=== PATIENT | male | born 1945 | race Caucasian/White ===

== ENCOUNTER → 2021-02-01 | Outpatient (CLI) | payer MEDICARE, SELFPAY ==
[2021-02-01 12:49] LABS: Prothrombin Time (Protime)PT. 29.9 SECONDS (11.7-14.9)
== END | disposition home or self-care (01) ==
PROVIDERS: PCP Family Medicine; Referring Provider Family Medicine; Visit Provider Family Medicine
DX: I48.91 Unspecified atrial fibrillation (principal)
CPT/HCPCS: 85610

== ENCOUNTER → 2021-03-12 12:34 | Outpatient (CLI) | payer MEDICARE, SELFPAY ==
[2021-03-12 12:57] LABS: International Normalized Ratio 2.6; Prothrombin Time (Protime)PT. 26.7 SECONDS (11.7-14.9)
== END ==
PROVIDERS: PCP Family Medicine; Visit Provider Family Medicine
DX: I48.91 Unspecified atrial fibrillation (principal)
CPT/HCPCS: 85610

== ENCOUNTER 2021-05-16 10:33 | Emergency (ER) | payer MEDICARE, SELFPAY ==
[2021-05-16 10:35] VITALS: BP 143/77; PULSE 62; RESP 16; TEMP 38.3; O2SAT 98; BMI 27.0
[2021-05-16 10:47] VITALS: BP 143/77; PULSE 62; RESP 16; TEMP 38.3; O2SAT 98
--- NOTE | 2021-05-16 10:49 | CT_ITS ---
STUDY: CT ABDOMEN AND PELVIS WITHOUT CONTRAST REASON FOR EXAM: Male, 75 years old. Bilateral flank pain. History 4-5 days of incontinence with nausea and vomiting. RADIATION DOSAGE (If Supplied By Facility): CTDIvol = ( 8.26 ) mGy, DLP = ( 437.75 ) mGycm TECHNIQUE: Transaxial images were obtained from the dome of the diaphragm to the symphysis pubis without oral contrast, and without intravenous contrast. Sagittal and coronal images were reconstructed. Individualized dose optimization techniques were used for this CT. COMPARISON: None. FINDINGS: The visualized lung bases are unremarkable. The visualized portions of the heart are within normal limits. Normal liver. Normal gallbladder and extrahepatic biliary system. Normal spleen. Normal pancreas. Normal bilateral adrenal glands. Moderate degree of bilateral hydronephrosis. Bilateral perinephric stranding more prominent on the right side. Normal visualized stomach. Normal small intestine. Normal colon. The appendix is visualized and appears normal. There is diffuse atherosclerotic calcification of the abdominal aorta, without a demonstrated aneurysm. Normal inferior vena cava. There is borderline retroperitoneal lymphadenopathy with enlarged nodes no greater than 10mm in the short axis diameter. The urinary bladder is markedly distended. The bladder wall is minimally thickened. There is enlargement of the prostate gland. The prostate measures 5.6 cm x 5.1 cm. This causes indentation at the bladder base. Central prostatic calcification. Normal abdominal wall. Mild degree of degenerative spurring at the L1-L2 and L2-L3 levels. Degenerative changes of the sacroiliac joints bilaterally. CT/Abdomen/Pelvis without Cont IMPRESSION: Moderate degree of bilateral hydronephrosis and hydroureter with perinephric stranding more prominent on the right side. This is most likely secondary to the markedly distended urinary bladder with a mild degree of the bladder wall thickening. Electronically Signed: Mello Moise MD at 11:39 EST ,
[2021-05-16] MEDS: Ondansetron 4 MG/2 ML Vial IV (11:00)
[2021-05-16] MEDS: Morphine 4 MG/ML Syringe IV ×2 (11:00→12:36)
[2021-05-16 11:08] LABS: Absolute Lymphocyte Count 0.32 X10^3/uL (0.83-4.51); Basophil# 0.02 X10^3/uL; Basophil% 0.4 % (0-1); Eosinophil# 0.01 X10^3/uL; Eosinophils% 0.2 % (0-5); Hematocrit 34.5 % (40-54); Hemoglobin 11.3 g/dL (13.0-16.5); Lymphocyte # 0.32 X10^3/ul (0.83-4.51); Mean Corp Hgb Conc 32.8 g/dL (32-36); Mean Corpuscular Hgb 29.6 pg (27.0-32.0); Mean Corpuscular Volume 90.3 fL (80-94); Mean Platelet Vol. 10.9 fl (6.2-12.0); Monocyte# 0.04 X10^3/uL; Monocyte% 0.7 % (0-10); NRBC Flagged by Analyzer 0 % (0-5); Neutrophil # 4.95 X10^3/uL (2.7-7.7); Neutrophil % 92.5 % (47-70); POSITIVE DIFFERENTIAL YES; Platelet Count 196 K/mm3 (150-450); RBC Distribution Width CV 13.5 % (11.6-14.6); RBC Distribution Width SD 44.6 fl (35.1-43.9); Red Blood Count 3.82 M/mm3 (4.6-6.2); White Blood Count 5.4 K/mm3 (4.4-11.0)
[2021-05-16 11:14] LABS: Differential Indicated SCAN CRITERIA MET
--- NOTE | 2021-05-16 11:15 | EX.ED.GUMALE ---
HPI <HANY Granda - Last Filed: 05/16/21 12:05> History of Present Illness Chief Complaint: Complaint Narrative Narrative: 75-year-old male with past medical history of A. fib, BPH presents with back pain and dysuria. Over the last 4 to 5 days he has had bilateral mid back pain and cloudy urine. He had urinary incontinence and has to wear depends. Today he developed a fever, chills, vomiting, and suprapubic pain. He has no history of similar symptoms. PFSH <HANY Granda - Last Filed: 05/16/21 12:05> [facility] Medical History (Updated 05/16/21 @ 12:02 by HANY Granda) HTN (hypertension) Home Medications cephalexin 500 mg PO Q6 #28 capsule 05/16/21 [Rx Last Taken Unknown] dutasteride 0.5 mg PO DAILY 05/16/21 [History Last Taken Unknown] metoprolol succinate 25 mg PO DAILY 05/16/21 [History Last Taken Unknown] ondansetron 4 mg PO Q8H PRN PRN #12 tab 05/16/21 [Rx Last Taken Unknown] tamsulosin 0.4 mg PO DAILY 05/16/21 [History Last Taken Unknown] warfarin 5 mg PO DAILY 05/16/21 [History Last Taken Unknown] Allergy/AdvReac Type Severity Reaction Status Date / Time No Known Allergies Allergy Verified 05/16/21 10:38 Social History Smoking Status: Former smoker ROS <HANY Granda - Last Filed: 05/16/21 12:05> ROS ED ROS Narrative Constitutional: Positive for fever, chills, malaise. Eyes: Negative for visual change. ENT: Negative for sore throat, ear pain, rhinorrhea. CVS: Negative for palpitations, chest pain, syncope. Respiratory: Negative for shortness of breath, cough, orthopnea. GI: Positive for abdominal pain, nausea, vomiting. Negative for diarrhea, constipation, melena, hematochezia. : Positive for dysuria, hematuria or frequency. Neuro: Negative for headache, motor/sensory dysfunction. Skin: Negative for rash, abscess, or wound. Endo: Negative for polyuria, polydipsia. Heme: Negative for easy bruising, bleeding, lymphadenopathy. Allergy: Negative for hives, oral swelling EXAM <HANY Granda - Last Filed: 05/16/21 12:05> Physical Exam Narrative Exam Narrative: CONST: Patient sitting in no acute distress EYES: Normal inspection ENT: Normal inspection, moist mucous membranes NECK: Normal inspection RESP: No respiratory distress, CTAB CVS: Tachycardic with regular rhythm, no murmur, no gallop ABD: Soft with suprapubic tenderness, no guarding or rebound, nondistended, no hepatosplenomegaly Back: Normal inspection, no CVA tenderness SKIN: Color normal, no rash, warm, dry, intact EXTREMITIES: Normal appearance, no pedal edema NEURO: Oriented x4 PSYCH: Normal affect Const Vital Signs: 05/16/21 10:35 05/16/21 10:47 05/16/21 12:05 Temperature 100.9 F H 100.9 F H 100 F H Temperature Source Oral Oral Oral Pulse Rate 62 62 72 Respiratory Rate 16 16 16 Blood Pressure 143/77 H 143/77 H 137/84 H Blood Pressure Mean 99 99 101 Pulse Ox 98 98 96 Oxygen Delivery Method Room Air Room Air Room Air 05/16/21 12:54 Temperature Temperature Source Pulse Rate 75 Respiratory Rate 18 Blood Pressure 128/68 H Blood Pressure Mean Pulse Ox 96 Oxygen Delivery Method <Dr. Jorge Montero DO - Last Filed: 05/16/21 18:55> Physical Exam Const Vital Signs: 05/16/21 10:35 05/16/21 10:47 05/16/21 12:05 Temperature 100.9 F H 100.9 F H 100 F H Temperature Source Oral Oral Oral Pulse Rate 62 62 72 Respiratory Rate 16 16 16 Blood Pressure 143/77 H 143/77 H 137/84 H Blood Pressure Mean 99 99 101 Pulse Ox 98 98 96 Oxygen Delivery Method Room Air Room Air Room Air 05/16/21 12:54 Temperature Temperature Source Pulse Rate 75 Respiratory Rate 18 Blood Pressure 128/68 H Blood Pressure Mean Pulse Ox 96 Oxygen Delivery Method [facility] <HANY Granda - Last Filed: 05/16/21 12:05> [facility] Narrative Medical decision making narrative: Patient presents with back pain and dysuria. He appears well and nontoxic. He is febrile with otherwise normal vital signs. He has suprapubic tenderness with a soft abdomen with no peritoneal signs. No CVA tenderness present. Labs show normal white count and elevated creatinine of 2.1. He has no previous labs for comparison. INR supratherapeutic at 4.1. Urine shows UTI and CT shows significantly distended bladder with bilateral hydronephrosis and perinephric stranding around the right kidney. Urinary catheter was placed with significant output and symptomatic improvement. Patient will be treated for pyelonephritis with Rocephin and prescribed Zofran and Keflex QID. He was also told to hold his Coumadin for the next 2 days. He was discharged with the urinary catheter in place and will follow up with his primary care doctor early next week. He was counseled to return for worsening symptoms and was discharged in stable condition. Lab Data Attestation: I reviewed the patient's lab results. Labs: Laboratory Results - last 24 hr 05/16/21 05/16/21 05/16/21 10:57 10:57 10:57 WBC 5.4 RBC 3.82 L Hgb 11.3 L Hct 34.5 L MCV 90.3 MCH 29.6 MCHC 32.8 RDW Std Deviation 44.6 H RDW Coeff of Vishal 13.5 Plt Count 196 MPV 10.9 Immature Gran % (Auto) 0.200 Neut % (Auto) 92.5 H Lymph % (Auto) 6.0 L [place] % (Auto) 0.7 Eos % (Auto) 0.2 Baso % (Auto) 0.4 Absolute Neuts (auto) 5.0 Absolute Lymphs (auto) 0.32 L Nucleated RBC % 0 Differential Comment COMMENT PT 39.8 H INR 4.2 H* Sodium 137 Potassium 4.3 Chloride 110 H Carbon Dioxide 20.0 L Anion Gap 7 BUN 31 H Creatinine 2.19 H Estim Creat Clear Calc 26.70 Est GFR (MDRD) Af Amer 38 L Est GFR (MDRD) Non-Af 31 L BUN/Creatinine Ratio 14.2 Glucose 107 H Lactic Acid Calcium 8.4 L Urine Color Urine Clarity Urine pH Ur Specific [place] Urine Protein Urine Glucose (UA) Urine Ketones Urine Occult Blood Urine Nitrite Urine Bilirubin Urine Urobilinogen Ur Leukocyte Esterase Urine RBC Urine WBC Ur Squamous Epith Cells Urine Bacteria Urine Mucus 05/16/21 05/16/21 10:57 11:58 WBC RBC Hgb Hct MCV MCH MCHC RDW Std Deviation RDW Coeff of Vishal Plt Count MPV Immature Gran % (Auto) Neut % (Auto) Lymph % (Auto) [place] % (Auto) Eos % (Auto) Baso % (Auto) Absolute Neuts (auto) Absolute Lymphs (auto) Nucleated RBC % Differential Comment PT INR Sodium Potassium Chloride Carbon Dioxide Anion Gap BUN Creatinine Estim Creat Clear Calc Est GFR (MDRD) Af Amer Est GFR (MDRD) Non-Af BUN/Creatinine Ratio Glucose Lactic Acid 1.2 Calcium Urine Color Yellow Urine Clarity Sl. Cloudy Urine pH 5.0 Ur Specific [place] 1.010 Urine Protein 30 H Urine Glucose (UA) Normal Urine Ketones Negative Urine Occult Blood 250 H Urine Nitrite Positive H Urine Bilirubin Negative Urine Urobilinogen Normal Ur Leukocyte Esterase 500 H Urine RBC 25-50 SEEN Urine WBC 25-50 SEEN Ur Squamous Epith Cells 0-5 SEEN Urine Bacteria 2+ Urine Mucus 0 SEEN Radiography Diagnostic Testing: Clinical Impression(s) from Imaging Studies Abdomen/Pelvis CT 05/16/21 10:49 IMPRESSION: Moderate degree of bilateral hydronephrosis and hydroureter with perinephric stranding more prominent on the right side. This is most likely secondary to the markedly distended urinary bladder with a mild degree of the bladder wall thickening. Electronically Signed: Mello Moise MD at 11:39 EST , <Dr. Jorge Montero, DO - Last Filed: 05/16/21 18:55> [facility] Narrative Medical decision making narrative: Patient was seen with me. I agree with the history and physical exam. Patient presents with urinary retention and suprapubic pain that has been getting worse over the past several days. Patient admits to some mild low back pain. Patient admits to fevers at home. Patient denies any nausea or vomiting. Patient denies any chest pain or shortness of breath. Vital signs are stable with the exception of an elevated temperature of 100.9. Patient is in no acute distress. Oral mucosa is pink and moist. Neck is supple. Trachea is midline. There is no JVD. Heart was regular rate and rhythm. Lungs are clear and equal bilaterally abdomen is soft. Bowel sounds are normal. There is distention of the bladder. There is tenderness to palpation of the suprapubic area. There is no rebound or guarding noted. Cranial nerves II through XII are intact. Strength is 5/5 bilaterally upper and lower extremities. There are no sensory deficits noted. CBC shows a mild anemia with a hemoglobin of 11.3 hematocrit 34.5. BUN and creatinine were slightly elevated at 31 and 2.19. PT with INR was obtained. INR was elevated at 4.2. Urinalysis shows leukocyte esterase of 500 with positive nitrites. There were 25-50 white blood cells and 25-50 red blood cells. There is 2+ bacteria. Urine culture was ordered. CT scan of the abdomen pelvis was obtained. There is a distended urinary bladder. There is prostatic hypertrophy. There is bilateral perinephric stranding, worse on the right. There is bilateral hydronephrosis and hydroureter. This was interpreted by the radiologist and reviewed by myself. Walker catheter was placed. Patient was given a dose of Rocephin here. Patient is able to tolerate p.o. Patient was given a prescription for Keflex. Patient was instructed to continue Tylenol as needed for any fevers. Patient was instructed to hold his Coumadin for 2 days. Patient was instructed to follow-up with his primary care physician in 2 to 3 days for reevaluation and removal of the catheter. Patient understood and was agreeable with the plan. All questions were answered. Lab Data Attestation: I reviewed the patient's lab results. Labs: Laboratory Results - last 24 hr 05/16/21 05/16/21 05/16/21 10:57 10:57 10:57 WBC 5.4 RBC 3.82 L Hgb 11.3 L Hct 34.5 L MCV 90.3 MCH 29.6 MCHC 32.8 RDW Std Deviation 44.6 H RDW Coeff of Vishal 13.5 Plt Count 196 MPV 10.9 Immature Gran % (Auto) 0.200 Neut % (Auto) 92.5 H Lymph % (Auto) 6.0 L [place] % (Auto) 0.7 Eos % (Auto) 0.2 Baso % (Auto) 0.4 Absolute Neuts (auto) 5.0 Absolute Lymphs (auto) 0.32 L Nucleated RBC % 0 Differential Comment COMMENT PT 39.8 H INR 4.2 H* Sodium 137 Potassium 4.3 Chloride 110 H Carbon Dioxide 20.0 L Anion Gap 7 BUN 31 H Creatinine 2.19 H Estim Creat Clear Calc 26.70 Est GFR (MDRD) Af Amer 38 L Est GFR (MDRD) Non-Af 31 L BUN/Creatinine Ratio 14.2 Glucose 107 H Lactic Acid Calcium 8.4 L Urine Color Urine Clarity Urine pH Ur Specific [place] Urine Protein Urine Glucose (UA) Urine Ketones Urine Occult Blood Urine Nitrite Urine Bilirubin Urine Urobilinogen Ur Leukocyte Esterase Urine RBC Urine WBC Ur Squamous Epith Cells Urine Bacteria Urine Mucus 05/16/21 05/16/21 10:57 11:58 WBC RBC Hgb Hct MCV MCH MCHC RDW Std Deviation RDW Coeff of Vishal Plt Count MPV Immature Gran % (Auto) Neut % (Auto) Lymph % (Auto) [place] % (Auto) Eos % (Auto) Baso % (Auto) Absolute Neuts (auto) Absolute Lymphs (auto) Nucleated RBC % Differential Comment PT INR Sodium Potassium Chloride Carbon Dioxide Anion Gap BUN Creatinine Estim Creat Clear Calc Est GFR (MDRD) Af Amer Est GFR (MDRD) Non-Af BUN/Creatinine Ratio Glucose Lactic Acid 1.2 Calcium Urine Color Yellow Urine Clarity Sl. Cloudy Urine pH 5.0 Ur Specific [place] 1.010 Urine Protein 30 H Urine Glucose (UA) Normal Urine Ketones Negative Urine Occult Blood 250 H Urine Nitrite Positive H Urine Bilirubin Negative Urine Urobilinogen Normal Ur Leukocyte Esterase 500 H Urine RBC 25-50 SEEN Urine WBC 25-50 SEEN Ur Squamous Epith Cells 0-5 SEEN Urine Bacteria 2+ Urine Mucus 0 SEEN Radiography Diagnostic Testing: Clinical Impression(s) from Imaging Studies Abdomen/Pelvis CT 05/16/21 10:49 IMPRESSION: Moderate degree of bilateral hydronephrosis and hydroureter with perinephric stranding more prominent on the right side. This is most likely secondary to the markedly distended urinary bladder with a mild degree of the bladder wall thickening. Electronically Signed: Mello Moise MD at 11:39 EST , Discharge Plan Triage Chief Complaint: Complaint ED Provider: Valerie Cedeño Dx/Rx/DC Orders Clinical Impression: Pyelonephritis, acute, Creatinine elevation, Acute urinary retention, Supratherapeutic INR Instructions: ED Pyelonephritis, Male (Adult) Prescriptions: New cephalexin [cephalexin] 500 MG capsule 500 mg PO Q6 Qty: 28 RF: 0 ondansetron [ondansetron] 4 MG tablet 4 mg PO Q8H PRN PRN (Reason: Nausea) Qty: 12 RF: 0 No Action tamsulosin 0.4 mg capsule 0.4 mg PO DAILY RF: 0 warfarin 5 mg tablet 5 mg PO DAILY RF: 0 metoprolol succinate 25 mg tablet extended release 24 hr 25 mg PO DAILY RF: 0 dutasteride 0.5 mg capsule 0.5 mg PO DAILY RF: 0 Stand Alone Forms: Work Status Form Primary Care Provider: Iván Aponte Referrals: Iván Aponte MD [Primary Care Provider] - Disposition Disposition: Home, Self Care Discharge Date/Time: 05/16/21 12:56
[2021-05-16 11:21] LABS: Anion Gap 7 (5-15); BUN 31 mg/dL (7-18); BUN/Creat Ratio 14.2 RATIO (10-20); Calcium,Total 8.4 mg/dL (8.5-10.1); Chloride 110 mmol/L (98-107); Creatinine, Serum 2.19 mg/dL (0.70-1.30); EST Glomerular Filtration Rate 31 mL/min (>60); Est Glom Filt Rate - Afr Amer 38 mL/min (>60); Glucose 107 mg/dL (74-106); Potassium 4.3 mmol/L (3.5-5.1); Sodium Level 137 mmol/L (136-145)
[2021-05-16 11:25] LABS: Prothrombin Time (Protime)PT. 39.8 SECONDS (11.7-14.9)
[2021-05-16 11:28] LABS: Lactic Acid 1.2 mmol/L (0.4-1.9)
[2021-05-16] MEDS: Acetaminophen 500 MG Tablet 1000 MG PO (11:40)
[2021-05-16 11:48] LABS: International Normalized Ratio 4.2
[2021-05-16] MEDS: Ceftriaxone 1 GM/50 ML BAG IV (12:02)
[2021-05-16 12:04] LABS: Mucous, Urine 0 SEEN /hpf (<or=2+)
[2021-05-16 12:05] VITALS: BP 137/84; PULSE 72; RESP 16; TEMP 37.7; O2SAT 96
[2021-05-16 12:05] LABS: Color, Urine Yellow (Yellow); Glucose, Dipstick Normal (Normal); Ketone-Dipstick Negative (Negative); Leukocyte Esterase-Dipstick 500 /ul (Negative); Nitrite-Dipstick Positive (Negative); Occult Blood-Urine 250 /ul (Negative); Protein-Dipstick 30 mg/dl (Negative); Urine Bilirubin Dipstick Negative (Negative); Urine Clarity Sl. Cloudy (Clear); Urine Urobilinogen Normal (Normal)
[2021-05-16 12:12] LABS: Bacteria 2+ /hpf (None Seen); Red Blood Cells-Urine 25-50 SEEN /hpf (0-5); Squamous Epithelial Cells - UA 0-5 SEEN /hpf (0-5); White Blood Cells 25-50 SEEN /hpf (0-5)
[2021-05-16 12:54] VITALS: BP 128/68; PULSE 75; RESP 18; O2SAT 96
--- NOTE | 2021-05-17 00:43 | ED.RN ---
Patient is aware of positive blood cultures and states his is asleep and he prefers to come early in the morning but is aware of importance of returning with sepsis concerns and assuring getting the IV atb/admission. He states understanding and will come in the morning.
== END 2021-05-16 12:56 | disposition home or self-care (01) ==
PROVIDERS: Emergency Provider Physician Assistant; PCP Family Medicine; Visit Provider Physician Assistant
DX: N13.6 Pyonephrosis (principal); I10 Essential (primary) hypertension; R79.1 Abnormal coagulation profile; R79.89 Other specified abnormal findings of blood chemistry; D64.9 Anemia, unspecified; R32 Unspecified urinary incontinence; Z87.891 Personal history of nicotine dependence; R33.9 Retention of urine, unspecified
CPT/HCPCS: 99284; 51702; 74176; 80048; 81001; 83605; 85025; 85610; 87040; 87077; 87086; 87088; 87186; J7030; A4216; J2405

== ENCOUNTER 2021-05-17 11:25 | Inpatient (IN) | payer MEDICARE, SELFPAY ==
[2021-05-17] VITALS (12 sets, daily range): BP systolic 112–140; BP diastolic 68–91; PULSE 64–135; RESP 14–20; TEMP 36.4–37.8; O2SAT 98–100; BMI 26.5; BMI 26.6
--- NOTE | 2021-05-17 11:49 | CCN.REFER ---
pt presented to main entrance. per pt he called by [facility] and told to come back to the hospital due to a positive culture. he as directed to third floor for admission and process was in progress when admitting nurse realized that pt was not to be admitted directly to hospital but the intent was that he return to the emergency room due to the abnormal lab results. patient was sent to ther emergency room and this nurse assumed pt care at this time.
--- NOTE | 2021-05-17 11:51 | EKG12_ITS ---
Test Reason : Blood Pressure : / mmHG Vent. Rate : 125 BPM Atrial Rate : 234 BPM P-R Int : 000 ms QRS Dur : 118 ms QT Int : 288 ms P-R-T Axes : 000 014 028 degrees QTc Int : 415 ms Atrial fibrillation Right bundle branch block Abnormal ECG Confirmed by AMADOU ZUÑIGA, ASHLEY ([id number]), editor newspaper ZAIN BEJARANO ([id number]) on 05/20/2021 12:57:09 PM Referred By: HEIDE Confirmed By:ASHLEY TOBAR MD
--- NOTE | 2021-05-17 11:56 | NURSING ---
NO OLD EKGS
[2021-05-17 12:20] LABS: Absolute Lymphocyte Count 1.05 X10^3/uL (0.83-4.51); Absolute Neutrophil Count 7.6 X10^3/uL (2.0-7.7); Basophil# 0.04 X10^3/uL; Basophil% 0.4 % (0-1); Eosinophil# 0.08 X10^3/uL; Eosinophils% 0.8 % (0-5); Hematocrit 35.7 % (40-54); Hemoglobin 11.5 g/dL (13.0-16.5); Lymphocyte # 1.05 X10^3/ul (0.83-4.51); Lymphocyte % 10.7 % (19-41); Mean Corp Hgb Conc 32.2 g/dL (32-36); Mean Corpuscular Hgb 29.9 pg (27.0-32.0); Mean Corpuscular Volume 92.7 fL (80-94); Mean Platelet Vol. 11.1 fl (6.2-12.0); Monocyte# 0.99 X10^3/uL; Monocyte% 10.1 % (0-10); NRBC Flagged by Analyzer 0 % (0-5); Neutrophil # 7.64 X10^3/uL (2.7-7.7); Neutrophil % 77.6 % (47-70); Platelet Count 223 K/mm3 (150-450); RBC Distribution Width SD 47.6 fl (35.1-43.9); Red Blood Count 3.85 M/mm3 (4.6-6.2); White Blood Count 9.8 K/mm3 (4.4-11.0)
[2021-05-17 12:21] LABS: Bacteria 0 SEEN /hpf (None Seen); Mucous, Urine 0 SEEN /hpf (<or=2+); Squamous Epithelial Cells - UA 0 SEEN /hpf (0-5)
[2021-05-17 12:23] LABS: Color, Urine Yellow (Yellow); Glucose, Dipstick Normal (Normal); Ketone-Dipstick Negative (Negative); Leukocyte Esterase-Dipstick 500 /ul (Negative); Nitrite-Dipstick Negative (Negative); Occult Blood-Urine 250 /ul (Negative); Protein-Dipstick 30 mg/dl (Negative); Specific Gravity, Urine 1.015 (1.002-1.030); Urine Bilirubin Dipstick Negative (Negative); Urine Clarity Sl. Cloudy (Clear); Urine Urobilinogen Normal (Normal)
[2021-05-17] MEDS: 0.9% Normal Saline 1,000 ML 999 ML IV (12:29)
[2021-05-17] MEDS: Ceftriaxone 1 GM/50 ML BAG IV (12:30)
--- NOTE | 2021-05-17 12:32 | EX.ED.GUMALE ---
HPI History of Present Illness Chief Complaint: Walker C/O Narrative Narrative: 71-year-old male presenting with positive blood cultures from yesterday. Patient initially had 4 to 5 days of suprapubic pain and bilateral flank pain associated with fever, chills. Patient was seen yesterday and had blood work done. He was found to have a urinary tract infection but cultures were drawn. Blood work was otherwise within normal limits. Patient went home with a Wlaker catheter due to urinary outlet obstruction. He was given a dose of Rocephin prior to leaving. He was given Keflex and he states he taken 2 pills today. He is holding his Coumadin because he was supratherapeutic. Patient states had a fever 100.9 yesterday. He states he feels otherwise well. He denies flank or abdominal pain that significant. He does not want any thing for pain. [facility] Medical History Atrial fibrillation Former smoker Hepatitis HTN (hypertension) Tinnitus of left ear Home Medications dutasteride 0.5 mg PO DAILY 05/16/21 [History Last Taken Unknown] metoprolol succinate 25 mg PO DAILY 05/16/21 [History Last Taken 05/17/21] ondansetron 4 mg PO Q8H PRN PRN #12 tab 05/16/21 [Rx Last Taken Unknown] tamsulosin 0.4 mg PO DAILY 05/16/21 [History Last Taken 05/16/21] warfarin 5 mg PO MOWEFR 05/16/21 [History Last Taken 05/15/21] cephalexin 500 mg PO Q6 05/17/21 [History Last Taken 05/17/21] multivitamin [Multi-Daily] 1 tab PO DAILY 05/17/21 [History Last Taken 05/17/21] warfarin 2.5 mg PO SUTUTHSA 05/17/21 [History Last Taken 05/14/21] Allergy/AdvReac Type Severity Reaction Status Date / Time No Known Allergies Allergy Verified 05/17/21 11:37 Social History Smoking Status: Former smoker ROS ROS ED Constitutional Constitutional ED: Reports chills and fever(s) Eyes Eyes: Denies blurry vision or other ENT ENT ED: Denies rhinorrhea or sore throat Cardiovascular Cardiovascular: Denies chest pain or palpitations Respiratory/Chest Respiratory/Chest: Denies cough or dyspnea Gastrointestinal Gastrointestinal: Denies abdominal pain or nausea Genitourinary Genitourinary ED: Reports other Details: Walker catheter in place ; Denies dysuria or hematuria Musculoskeletal Musculoskeletal: Denies myalgias Integumentary Denies abscess or rash Neurologic Neurologic: Denies headache(s) Psychiatric Psychiatric: Denies anxiety or depression EXAM Physical Exam Const Vital Signs: 05/17/21 10:00 05/17/21 11:37 05/17/21 12:18 Temperature 100.0 F H 97.6 F L Temperature Source Oral Temporal Pulse Rate 69 74 Respiratory Rate 16 14 Blood Pressure 112/68 131/91 H Blood Pressure Mean 82 104 Blood Pressure Source Monitor Blood Pressure Position Sitting Blood Pressure Location Left Arm Pulse Ox 98 99 Oxygen Delivery Method Room Air Room Air Room Air 05/17/21 13:15 Temperature 98.3 F Temperature Source Oral Pulse Rate 117 H Respiratory Rate 16 Blood Pressure 129/79 H Blood Pressure Mean 95 Blood Pressure Source Blood Pressure Position Blood Pressure Location Pulse Ox 98 Oxygen Delivery Method Room Air Positive well nourished General Appearance ED: NAD HEENT Reports moist mucous membranes normocephalic and atraumatic Eyes PERRL and EOMs intact bilaterally General Eye ED: Negative for pale conjunctiva or scleral icterus Resp normal respiratory effort and clear to auscultation bilaterally Cardio Rate: tachycardic Rhythm: abnormal rhythm irregularly irregular GI non-distended Palpation: soft Neuro oriented x3, CN's II-XII intact bilaterally, moves all extremities and no focal motor deficits Sensorium / Orientation: alert MDM MDM MDM Narrative Medical decision making narrative: Patient presenting for positive blood cultures yesterday. It does appear that he had 2+ blood cultures with gram negative rods. His urinalysis was also positive. Patient states he is feeling otherwise well. His white blood cell count is increased to 9.8 but is not significantly high. Hemoglobin stable at 11.5 near baseline. Patient was pancultured again. He is given a dose of Rocephin. He is given a liter of IV fluids. It was noted that his heart rate was fast and I obtained an EKG and on my interpretation it shows atrial fibrillation with a ventricular rate of 125 bpm. Patient now reporting any chest pain, palpitations, shortness of breath. He states he took his metoprolol this morning. He held his Coumadin. Patient was given a dose of Cardizem. His heart rate remained about 115-1 20. Lactic acid was negative. INR is therapeutic today at 3.0. Creatinine is improved from yesterday to 1.53. AST, ALT, alkaline phosphatase slightly elevated. Urinalysis shows no nitrates but was positive yesterday for these. Patient was discussed with hospitalist for admission due to bacteremia. After speaking to the hospitalist he wanted to increase the patient's home metoprolol dose to 25 mg p.o. twice daily instead of 12.5 mg twice daily. The patient was given an additional 12.5 mg p.o. in the ER and will be given another 25 mg this evening. Impression: 1. A. fib with RVR 2. Bacteremia 3. Urinary tract infection Lab Data Labs: Laboratory Results - last 24 hr 05/17/21 05/17/21 05/17/21 12:10 12:10 12:10 WBC 9.8 RBC 3.85 L Hgb 11.5 L Hct 35.7 L MCV 92.7 MCH 29.9 MCHC 32.2 RDW Std Deviation 47.6 H RDW Coeff of Vishal 14.0 Plt Count 223 MPV 11.1 Immature Gran % (Auto) 0.400 Neut % (Auto) 77.6 H Lymph % (Auto) 10.7 L [place] % (Auto) 10.1 H Eos % (Auto) 0.8 Baso % (Auto) 0.4 Absolute Neuts (auto) 7.6 Absolute Lymphs (auto) 1.05 Nucleated RBC % 0 PT 30.2 H INR 3.0 APTT 63.1 H Sodium 136 Potassium 4.4 Chloride 108 H Carbon Dioxide 24.0 Anion Gap 4 L BUN 20 H Creatinine 1.53 H Estim Creat Clear Calc 38.22 Est GFR (MDRD) Af Amer 57 L Est GFR (MDRD) Non-Af 47 L BUN/Creatinine Ratio 13.1 Glucose 97 Lactic Acid Calcium 8.2 L Total Bilirubin 0.40 AST 48 H ALT 62 H Alkaline Phosphatase 129 H Total Protein 6.9 Albumin 2.9 L Globulin 4.0 Albumin/Globulin Ratio 0.7 L Urine Color Urine Clarity Urine pH Ur Specific [place] Urine Protein Urine Glucose (UA) Urine Ketones Urine Occult Blood Urine Nitrite Urine Bilirubin Urine Urobilinogen Ur Leukocyte Esterase Urine RBC Urine WBC Ur Squamous Epith Cells Urine Bacteria Urine Mucus 05/17/21 05/17/21 12:10 12:15 WBC RBC Hgb Hct MCV MCH MCHC RDW Std Deviation RDW Coeff of Vishal Plt Count MPV Immature Gran % (Auto) Neut % (Auto) Lymph % (Auto) [place] % (Auto) Eos % (Auto) Baso % (Auto) Absolute Neuts (auto) Absolute Lymphs (auto) Nucleated RBC % PT INR APTT Sodium Potassium Chloride Carbon Dioxide Anion Gap BUN Creatinine Estim Creat Clear Calc Est GFR (MDRD) Af Amer Est GFR (MDRD) Non-Af BUN/Creatinine Ratio Glucose Lactic Acid 0.8 Calcium Total Bilirubin AST ALT Alkaline Phosphatase Total Protein Albumin Globulin Albumin/Globulin Ratio Urine Color Yellow Urine Clarity Sl. Cloudy Urine pH 6.0 Ur Specific [place] 1.015 Urine Protein 30 H Urine Glucose (UA) Normal Urine Ketones Negative Urine Occult Blood 250 H Urine Nitrite Negative Urine Bilirubin Negative Urine Urobilinogen Normal Ur Leukocyte Esterase 500 H Urine RBC 25-50 SEEN Urine WBC 10-25 SEEN Ur Squamous Epith Cells 0 SEEN Urine Bacteria 0 SEEN Urine Mucus 0 SEEN Discharge Plan Triage Chief Complaint: Walker C/O ED Provider: Alden Umana Dx/Rx/DC Orders Primary Care Provider: Iván Aponte
[2021-05-17 12:33] LABS: Prothrombin Time (Protime)PT. 30.2 SECONDS (11.7-14.9)
[2021-05-17 12:34] LABS: Partial Thromboplast Time 63.1 Seconds (24.1-36.2)
[2021-05-17 12:36] LABS: Red Blood Cells-Urine 25-50 SEEN /hpf (0-5); White Blood Cells 10-25 SEEN /hpf (0-5)
[2021-05-17 12:38] LABS: ALB/GLOB Ratio 0.7 RATIO (0.9-2.4); AST(SGOT) 48 U/L (15-37); Alanine Aminotransfer ALT/SGPT 62 U/L (16-61); Albumin, Serum 2.9 g/dL (3.2-5.0); Alkaline Phosphatase 129 U/L (45-117); Anion Gap 4 (5-15); BUN 20 mg/dL (7-18); BUN/Creat Ratio 13.1 RATIO (10-20); Calcium,Total 8.2 mg/dL (8.5-10.1); Chloride 108 mmol/L (98-107); Creatinine, Serum 1.53 mg/dL (0.70-1.30); EST Glomerular Filtration Rate 47 mL/min (>60); Est Glom Filt Rate - Afr Amer 57 mL/min (>60); Estimated Creatinine Clearance 38.22 ml/min; Glucose 97 mg/dL (74-106); Potassium 4.4 mmol/L (3.5-5.1); Protein, Total 6.9 g/dL (6.4-8.2); Sodium Level 136 mmol/L (136-145)
[2021-05-17] MEDS: dilTIAZem 25 MG/5 ML Vial 10 MG IV BOLUS (12:38)
[2021-05-17 12:57] LABS: Lactic Acid 0.8 mmol/L (0.4-1.9)
--- NOTE | 2021-05-17 13:30 | NURSING ---
MED SURG CELI UTI, BACTEREMIA, AFIB RVR
[2021-05-17] MEDS: Metoprolol Tartrate 25 MG Tablet 12.5 MG PO (13:42)
--- NOTE | 2021-05-17 14:51 | EKG12_ITS ---
Test Reason : Blood Pressure : / mmHG Vent. Rate : 061 BPM Atrial Rate : 061 BPM P-R Int : 136 ms QRS Dur : 126 ms QT Int : 406 ms P-R-T Axes : 049 010 042 degrees QTc Int : 408 ms Normal sinus rhythm Right bundle branch block Abnormal ECG No previous ECGs available Confirmed by AMADOU ZUÑIGA, ASHLEY ([id number]), news assignment editor ZAIN BEJARANO ([id number]) on 05/21/2021 10:53:55 AM Referred By: EDELMIRA Confirmed By:ASHLEY TOBAR MD
--- NOTE | 2021-05-17 16:22 | HP.PCM.HOS_ITS ---
HPI - General General Date of Admission: 05/17/21 HPI Narrative YO IVY, is a 75 M who presents to the hospital as a call back because his blood cultures came back positive for gram-negative rods. He had presented to the hospital yesterday for UTI. The urine culture is also coming back positive as well and he had been given a dose of Rocephin yesterday as well as a dose of Rocephin today in the ER and he had taken 2 doses of his Keflex. He states that he feels fine today and otherwise would not of come to the hospital if he had not been called. He was also while in the ER in RVR from his A. fib. 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 Of note yesterday his renal function was elevated to over 2 this was related to urinary retention which is likely the cause of his UTI. He did have a Walker placed in the ER yesterday and now his creatinine today is down to 1.53. Because of his A. fib he is on Coumadin and his INR was supratherapeutic though that is also better today at 3. PFSH Medical History Atrial fibrillation Former smoker Hepatitis HTN (hypertension) Tinnitus of left ear Home Medications dutasteride 0.5 mg PO DAILY 05/16/21 [History Last Taken Unknown] metoprolol succinate 25 mg PO DAILY 05/16/21 [History Last Taken 05/17/21] ondansetron 4 mg PO Q8H PRN PRN #12 tab 05/16/21 [Rx Last Taken Unknown] tamsulosin 0.4 mg PO DAILY 05/16/21 [History Last Taken 05/16/21] warfarin 5 mg PO MOWEFR 05/16/21 [History Last Taken 05/15/21] cephalexin 500 mg PO Q6 05/17/21 [History Last Taken 05/17/21] multivitamin [Multi-Daily] 1 tab PO DAILY 05/17/21 [History Last Taken 05/17/21] warfarin 2.5 mg PO SUTUTHSA 05/17/21 [History Last Taken 05/14/21] Allergy/AdvReac Type Severity Reaction Status Date / Time No Known Allergies Allergy Verified 05/17/21 11:37 Family History (Updated 05/17/21 @ 16:[address] Mason Rodríguez MD) Other Cancer Social History Smoking Status: Former smoker ROS Constitutional Constitutional: Denies chills, fatigue, fever(s) or malaise Eyes Eyes: Denies blurry vision ENT HEENT: Denies headache(s) or nasal discharge Cardiovascular Cardiovascular: Denies chest pain, dyspnea on exertion or syncope Respiratory/Chest Respiratory/Chest: Denies cough, shortness of breath at rest or shortness of breath with exertion Gastrointestinal Gastrointestinal: Denies constipation, diarrhea, nausea or vomiting Genitourinary Genitourinary: Denies dysuria Neurologic Neurologic: Denies focal weakness, numbness or tremor(s) Psychiatric Psychiatric: Denies anxiety or depression Vital Signs Vital Signs Vital Signs: 05/17/21 10:00 05/17/21 11:37 05/17/21 12:18 Temperature 100.0 F H 97.6 F L Temperature Source Oral Temporal Pulse Rate 69 74 Respiratory Rate 16 14 Respiratory Effort Respiratory Depth Respiratory Pattern Blood Pressure 112/68 131/91 H Blood Pressure Mean 82 104 Blood Pressure Source Monitor Blood Pressure Position Sitting Blood Pressure Location Left Arm Pulse Ox 98 99 Oxygen Delivery Method Room Air Room Air Room Air 05/17/21 13:15 05/17/21 13:59 05/17/21 14:01 Temperature 98.3 F 98.2 F 98.2 F Temperature Source Oral Oral Oral Pulse Rate 117 H 118 H 118 H Respiratory Rate 16 16 16 Respiratory Effort Respiratory Depth Respiratory Pattern Blood Pressure 129/79 H 140/75 H 140/75 H Blood Pressure Mean 95 96 96 Blood Pressure Source Blood Pressure Position Blood Pressure Location Pulse Ox 98 98 98 Oxygen Delivery Method Room Air Room Air Room Air 05/17/21 14:31 05/17/21 15:56 Temperature 98.2 F Temperature Source Temporal Pulse Rate 97 Respiratory Rate 16 Respiratory Effort Normal Respiratory Depth Normal Respiratory Pattern Normal Blood Pressure 128/84 H Blood Pressure Mean 98 Blood Pressure Source Monitor Blood Pressure Position Sitting Blood Pressure Location Left Arm Pulse Ox 100 Oxygen Delivery Method Room Air Room Air Weight Weight: 164 lb 10.965 oz Body Mass Index (BMI) 26.6 Physical Exam Const alert, oriented x3 and no apparent distress General Appearance: cooperative HEENT normocephalic and moist oral mucous membranes Eyes PERRL, EOMs intact bilaterally and conjunctivae normal Neck supple and no JVD Resp normal respiratory effort, no retractions, no use of accessory muscles and clear to auscultation bilaterally Auscultation: Negative for crackles, rales, rhonchi or wheezes Cardio S1 normal heart sound, S2 normal heart sound and no murmurs Rate: tachycardic Rhythm: abnormal rhythm GI soft to palpation, non-tender and non-distended; Negative for hepatosplenomegaly Extremity no clubbing, cyanosis or edema Skin no rashes or lesions noted Neuro no focal motor deficits and no sensory deficits noted Psych affect normal Appearance: appropriate Results Lab / Micro Data Result Diagrams: 05/17/21 12:10 05/17/21 12:10 Labs: Laboratory Results - last 24 hr 05/17/21 12:10: WBC 9.8, RBC 3.85 L, Hgb 11.5 L, Hct 35.7 L, MCV 92.7, MCH 29.9, MCHC 32.2, RDW Std Deviation 47.6 H, RDW Coeff of Vishal 14.0, Plt Count 223, MPV 11.1, Immature Gran % (Auto) 0.400, Neut % (Auto) 77.6 H, Lymph % (Auto) 10.7 L, [place] % (Auto) 10.1 H, Eos % (Auto) 0.8, Baso % (Auto) 0.4, Absolute Neuts (auto) 7.6, Absolute Lymphs (auto) 1.05, Nucleated RBC % 0 05/17/21 12:10: PT 30.2 H, INR 3.0, APTT 63.1 H 05/17/21 12:10: Sodium 136, Potassium 4.4, Chloride 108 H, Carbon Dioxide 24.0, Anion Gap 4 L, BUN 20 H, Creatinine 1.53 H, Estim Creat Clear Calc 38.22, Est GFR (MDRD) Af Amer 57 L, Est GFR (MDRD) Non-Af 47 L, BUN/Creatinine Ratio 13.1, Glucose 97, Calcium 8.2 L, Total Bilirubin 0.40, AST 48 H, ALT 62 H, Alkaline Phosphatase 129 H, Total Protein 6.9, Albumin 2.9 L, Globulin 4.0, Albumin/Globulin Ratio 0.7 L 05/17/21 12:10: Lactic Acid 0.8 05/17/21 12:15: Urine Color Yellow, Urine Clarity Sl. Cloudy, Urine pH 6.0, Ur Specific [place] 1.015, Urine Protein 30 H, Urine Glucose (UA) Normal, Urine Ketones Negative, Urine Occult Blood 250 H, Urine Nitrite Negative, Urine Bilirubin Negative, Urine Urobilinogen Normal, Ur Leukocyte Esterase 500 H, Urine RBC 25-50 SEEN, Urine WBC 10-25 SEEN, Ur Squamous Epith Cells 0 SEEN, Urine Bacteria 0 SEEN, Urine Mucus 0 SEEN Assessment & Plan Assessment/Plan (1) Acute urinary retention: (2) Bacteremia due to Gram-negative bacteria: (3) UTI (urinary tract infection): (4) MICKEY (acute kidney injury): (5) Paroxysmal atrial fibrillation with RVR: PLAN: 1. Gram-negative verónica UTI with gram-negative verónica bacteremia without sepsis/urinary retention with MICKEY ?His renal failure was secondary to his urinary retention lactic acid was unremarkable ?He did receive some IV fluids in the ER and his creatinine is improving significantly with Walker placement ?We will continue with his home Flomax and continue with the Walker, consult urology ?Continue with Rocephin IV pending sensitivities from cultures obtained yesterday 2. A. fib with RVR ?Continue with his metoprolol, will increase the dose to 25 mg p.o.twice daily, he did receive a dose of Cardizem in the ER ?We will obtain an echo as we do not have any records of him here and will consult cardiology for outpatient establishment ?We will continue to hold his Coumadin in the setting of being on antibiotics and monitor his INR DVT: Charges/Coding Visit Charges Inpatient E&M: 30146 Init Hosp L3
--- NOTE | 2021-05-17 16:56 | CON.PCM.CA_ITS ---
Assessment & Plan Assessment/Plan (1) Paroxysmal atrial fibrillation with RVR: PLAN: He does have a history of paroxysmal atrial fibrillation and it is not clear whether it is the sepsis which has made to this come on at this time. He appears to have converted back to sinus rhythm after increasing his beta- luis. My recommendation would be for him to continue the same. An echocardiogram will be performed to assess his ventricular function. I would leave the issues of the anticoagulation up to you for now. Thank you for allowing me to participate in the care of your patient. Please don't hesitate to call if any issues arise. HPI Consult Data Date of Consult: 05/17/21 HPI Narrative HPI Narrative: YO IVY, is a 75 M who presented to the hospital yesterday for UTI. His urine and blood cultures came back positive and he was brought back for treatment of the same. He apparently has a previous history of atrial fibrillation previously been taking care of by a physician in [place] from where he has just recently moved. He does not really feel the above. He has been on anticoagulation for the same. Cardiology was called to evaluate and treat him. His beta-luis was increased to 25 mg twice a day. He denies any chest pain no paroxysmal nocturnal dyspnea or pedal edema no neck arm or jaw discomfort suggest angina. [facility] Medical History Atrial fibrillation Former smoker Hepatitis HTN (hypertension) Tinnitus of left ear Home Medications dutasteride 0.5 mg PO DAILY 05/16/21 [History Last Taken Unknown] metoprolol succinate 25 mg PO DAILY 05/16/21 [History Last Taken 05/17/21] ondansetron 4 mg PO Q8H PRN PRN #12 tab 05/16/21 [Rx Last Taken Unknown] tamsulosin 0.4 mg PO DAILY 05/16/21 [History Last Taken 05/16/21] warfarin 5 mg PO MOWEFR 05/16/21 [History Last Taken 05/15/21] cephalexin 500 mg PO Q6 05/17/21 [History Last Taken 05/17/21] multivitamin [Multi-Daily] 1 tab PO DAILY 05/17/21 [History Last Taken 05/17/21] warfarin 2.5 mg PO SUTUTHSA 05/17/21 [History Last Taken 05/14/21] Allergy/AdvReac Type Severity Reaction Status Date / Time No Known Allergies Allergy Verified 05/17/21 11:37 Family History Other Cancer Social History Smoking Status: Former smoker ROS Constitutional Constitutional: Denies fever(s) or weight loss Eyes Eyes: Reports systems reviewed and no addt'l complaints, except as documented ENT HEENT: Reports systems reviewed and no addt'l complaints, except as documented Cardiovascular Cardiovascular: Denies chest pain at rest, chest pain with activity, dyspnea at rest, dyspnea on exertion, edema, palpitations or paroxysmal nocturnal dyspnea Respiratory/Chest Respiratory/Chest: Denies dyspnea on exertion, productive cough, shortness of breath at rest or shortness of breath with exertion Gastrointestinal Gastrointestinal: Denies change in bowel habits, nausea, vomiting or weight changes Genitourinary Genitourinary: Denies difficulty urinating Musculoskeletal Musculoskeletal: Denies joint stiffness or muscle weakness Integumentary Integumentary: Denies lesions Neurologic Neurologic: Denies dizziness or syncope Psychiatric Psychiatric: Denies anxiety Endocrine Endocrinology: Denies excessive sweating or fatigue Hematologic/Lymphatic Hematologic/Lymphatic: Denies anemia Allergic/Immunologic Allergic/Immunologic: Denies seasonal rhinorrhea Physical Exam Const alert, oriented x3 and no apparent distress General Appearance: cooperative HEENT hearing grossly normal bilaterally Head and Scalp: atraumatic Eyes EOMs intact bilaterally Neck General: normal visual inspection Chest inspection of chest normal and palpation of chest normal Resp normal respiratory effort Auscultation: clear to auscultation bilaterally Cardio regular rate, regular rhythm, S1 normal heart sound and S2 normal heart sound Jugular Venous Distention: JVD GI normal to inspection, nondistended, normoactive bowel sounds Extremity normal capillary refill and no pedal edema Peripheral Pulses: Yes pulses 2+ throughout and femoral pulses present Skin no rashes or lesions noted Neuro oriented x3 and CN's II-XII intact bilaterally Psych Appearance: grossly normal and appropriate Risk Stratification Risk Stratification Applicable: No Objective Data Vital Signs: Vital Signs Temp Pulse Resp BP Pulse Ox 98.2 F 97 16 128/84 H 100 05/17/21 14:31 05/17/21 14:31 05/17/21 14:31 05/17/21 14:31 05/17/21 14:31 Oxygen Delivery Method Room Air Weight: 164 lb 10.965 oz Body Mass Index (BMI) 26.6 Intake & Output: Intake and Output for Last 24 Hours 05/15/21 05/16/21 05/17/21 23:59 23:59 23:59 Intake Total 1050 / 1050 Balance 1050 / 1050 Lab / Micro Data Result Diagrams: 05/17/21 12:10 05/17/21 12:10 Labs: Laboratory Results - last 24 hr 05/17/21 12:10: WBC 9.8, RBC 3.85 L, Hgb 11.5 L, Hct 35.7 L, MCV 92.7, MCH 29.9, MCHC 32.2, RDW Std Deviation 47.6 H, RDW Coeff of Vishal 14.0, Plt Count 223, MPV 11.1, Immature Gran % (Auto) 0.400, Neut % (Auto) 77.6 H, Lymph % (Auto) 10.7 L, [place] % (Auto) 10.1 H, Eos % (Auto) 0.8, Baso % (Auto) 0.4, Absolute Neuts (auto) 7.6, Absolute Lymphs (auto) 1.05, Nucleated RBC % 0 05/17/21 12:10: PT 30.2 H, INR 3.0, APTT 63.1 H 05/17/21 12:10: Sodium 136, Potassium 4.4, Chloride 108 H, Carbon Dioxide 24.0, Anion Gap 4 L, BUN 20 H, Creatinine 1.53 H, Estim Creat Clear Calc 38.22, Est GFR (MDRD) Af Amer 57 L, Est GFR (MDRD) Non-Af 47 L, BUN/Creatinine Ratio 13.1, Glucose 97, Calcium 8.2 L, Total Bilirubin 0.40, AST 48 H, ALT 62 H, Alkaline Phosphatase 129 H, Total Protein 6.9, Albumin 2.9 L, Globulin 4.0, Albumin/Globulin Ratio 0.7 L 05/17/21 12:10: Lactic Acid 0.8 05/17/21 12:15: Urine Color Yellow, Urine Clarity Sl. Cloudy, Urine pH 6.0, Ur Specific [place] 1.015, Urine Protein 30 H, Urine Glucose (UA) Normal, Urine Ketones Negative, Urine Occult Blood 250 H, Urine Nitrite Negative, Urine Bilirubin Negative, Urine Urobilinogen Normal, Ur Leukocyte Esterase 500 H, Urine RBC 25-50 SEEN, Urine WBC 10-25 SEEN, Ur Squamous Epith Cells 0 SEEN, Urine Bacteria 0 SEEN, Urine Mucus 0 SEEN Cardiology Labs/Tests 05/17/21 12:10: WBC 9.8, RBC 3.85 L, Hgb 11.5 L, Hct 35.7 L, MCV 92.7, MCH 29.9, MCHC 32.2, Plt Count 223, MPV 11.1, Immature Gran % (Auto) 0.400, Neut % (Auto) 77.6 H, Lymph % (Auto) 10.7 L, [place] % (Auto) 10.1 H, Eos % (Auto) 0.8, Baso % (Auto) 0.4, Absolute Neuts (auto) 7.6, Nucleated RBC % 0 05/17/21 12:10: PT 30.2 H, INR 3.0, APTT 63.1 H 05/17/21 12:10: Sodium 136, Potassium 4.4, Chloride 108 H, Carbon Dioxide 24.0, Anion Gap 4 L, BUN 20 H, Creatinine 1.53 H, Est GFR (MDRD) Af Amer 57 L, Est GFR (MDRD) Non-Af 47 L, BUN/Creatinine Ratio 13.1, Glucose 97, Calcium 8.2 L, Total Bilirubin 0.40 05/17/21 12:10: Lactic Acid 0.8 05/17/21 12:15: Urine Color Yellow, Urine Clarity Sl. Cloudy, Urine pH 6.0, Ur Specific [place] 1.015, Urine Protein 30 H, Urine Glucose (UA) Normal, Urine Ketones Negative, Urine Occult Blood 250 H, Urine Nitrite Negative, Urine Kelby irubin Negative, Urine Urobilinogen Normal, Ur Leukocyte Esterase 500 H, Urine RBC 25-50 SEEN, Urine WBC 10-25 SEEN Rhythm: EKG: ECHO: Stress Test: Cardiac Cath: PCI: CT Surgery: Holter monitor: EPS: PPM: CXR: Chest CT Scan:
[2021-05-17] MEDS: Tamsulosin HCl 0.4 MG Capsule PO (17:14)
[2021-05-17] MEDS: 0.9% Saline Lock 10 ML Syringe IV (23:10)
[2021-05-17] MEDS: Metoprolol Tartrate 5 MG/5 ML Vial IV (23:10)
[2021-05-18] VITALS (26 sets, daily range): BP systolic 98–140; BP diastolic 69–86; PULSE 38–135; RESP 16–21; TEMP 36.2–37.1; O2SAT 94–99
[2021-05-18] MEDS: Metoprolol Tartrate 5 MG/5 ML Vial IV (00:07)
--- NOTE | 2021-05-18 01:02 | PCM.PN.BLA ---
Progress Note Nurse reported A. fib with RVR. Metoprolol IV x2 given. Patient remained in persistent A. fib with heart rates of 110 to 130. Cardizem drip ordered.
[2021-05-18 04:00] LABS: Absolute Lymphocyte Count 1.14 X10^3/uL (0.83-4.51); Absolute Neutrophil Count 6.4 X10^3/uL (2.0-7.7); Basophil# 0.02 X10^3/uL; Basophil% 0.2 % (0-1); Eosinophil# 0.13 X10^3/uL; Eosinophils% 1.4 % (0-5); Hematocrit 33.1 % (40-54); Hemoglobin 10.7 g/dL (13.0-16.5); Lymphocyte # 1.14 X10^3/ul (0.83-4.51); Lymphocyte % 12.6 % (19-41); Mean Corp Hgb Conc 32.3 g/dL (32-36); Mean Corpuscular Hgb 29.6 pg (27.0-32.0); Mean Corpuscular Volume 91.7 fL (80-94); Mean Platelet Vol. 11.1 fl (6.2-12.0); Monocyte# 1.25 X10^3/uL; Monocyte% 13.9 % (0-10); NRBC Flagged by Analyzer 0 % (0-5); Neutrophil # 6.44 X10^3/uL (2.7-7.7); Neutrophil % 71.5 % (47-70); Platelet Count 221 K/mm3 (150-450); RBC Distribution Width CV 13.8 % (11.6-14.6); RBC Distribution Width SD 46.5 fl (35.1-43.9); Red Blood Count 3.61 M/mm3 (4.6-6.2)
[2021-05-18 04:09] LABS: International Normalized Ratio 2.2; Prothrombin Time (Protime)PT. 23.4 SECONDS (11.7-14.9)
[2021-05-18 04:21] LABS: Anion Gap 5 (5-15); BUN 19 mg/dL (7-18); BUN/Creat Ratio 15.3 RATIO (10-20); Calcium,Total 8.3 mg/dL (8.5-10.1); Chloride 106 mmol/L (98-107); Creatinine, Serum 1.24 mg/dL (0.70-1.30); EST Glomerular Filtration Rate 61 mL/min (>60); Est Glom Filt Rate - Afr Amer 73 mL/min (>60); Estimated Creatinine Clearance 47.16 ml/min; Glucose 105 mg/dL (74-106); Potassium 4.1 mmol/L (3.5-5.1); Sodium Level 137 mmol/L (136-145)
--- NOTE | 2021-05-18 05:55 | ECHOD_ITS ---
Reason For Study: Afib, Aflutter Procedure This was a 2D Doppler, Color Flow transthoracic echocardiogram. Exam performed portable in patient room. Left Ventricle Normal LV size. Mild concentric left ventricular hypertrophy. Left ventricular systolic function is normal. The estimated ejection fraction is 55 %. No regional wall motion abnormalities noted. Right Ventricle Normal RV size. Normal systolic function. Atria Normal left atrium. Normal right atrium. Mitral Valve Normal mitral valve. Mild (1+) eccentric mitral valve insufficiency. Tricuspid Valve Normal tricuspid valve. Mild tricuspid valve insufficiency. Aortic Valve Normal aortic valve. Trisinus/trileaflet aortic valve. Great Vessels Normal aortic root. The pulmonary artery is normal size. Inferior vena cava collapse with sniff. Pericardium/Pleural No pericardial effusion. MMode/2D Measurements & Calculations LVIDd: 4.2 cm IVSd: 1.2 cm Ao root diam: 3.2 cm LVIDs: 2.7 cm LVPWd: 1.4 cm RVDd: 3.6 cm FS: 36.3 % LAV(MOD-bp): 58.2 ml LVAd ap4: 25.8 cm2 LVAd ap2: 22.7 cm2 LAV(MOD-bp) Indexed: 31.7 ml/m2 LVLd ap4: 8.0 cm LVLd ap2: 8.1 cm LAV(MOD-sp2): 61.0 ml EDV(MOD-sp4): 69.1 ml EDV(MOD-sp2): 53.6 ml LAV(MOD-sp4): 54.9 ml EDV(sp4-el): 70.6 ml EDV(sp2-el): 54.2 ml LVAs ap4: 15.9 cm2 LVAs ap2: 13.6 cm2 LVLs ap4: 6.9 cm LVLs ap2: 7.1 cm ESV(MOD-sp4): 31.4 ml ESV(MOD-sp2): 21.7 ml ESV(sp4-el): 31.1 ml ESV(sp2-el): 21.9 ml EF(MOD-sp4): 54.5 % EF(MOD-sp2): 59.4 % EF(sp4-el): 55.9 % SV(MOD-sp4): 37.7 ml SV(MOD-sp2): 31.8 ml SV(sp4-el): 39.4 ml LA dimension(2D): 4.3 cm LA A4 area: 18.9 cm2 RA A4 area: 11.4 cm2 Doppler Measurements & Calculations MV E max alexandra: 87.4 cm/sec Ao V2 max: 137.6 cm/sec LV V1 max: 94.7 cm/sec Ao max P.7 mmHg LV V1 max P.6 mmHg Ao V2 mean: 90.9 cm/sec Ao mean P.8 mmHg Ao V2 VTI: 20.3 cm PA V2 max: 90.8 cm/sec TR max alexandra: 201.5 cm/sec TR max P.2 mmHg ECHO/Echo Complete Interpretation Summary Normal LV size. Left ventricular systolic function is normal. The estimated ejection fraction is 55 %. Mild concentric left ventricular hypertrophy. Mild tricuspid valve insufficiency. Ordering Physician: Mason Rodríguez Referring Physician: Iván Aponte Performed By: Patricia Kiran, MIKALA, RVT
--- NOTE | 2021-05-18 08:13 | PCM.PN.CARD ---
Subjective Subjective Patient seen and evaluated this morning. Appears to have gone into atrial fibrillation through the night the above is asymptomatic ventricular response rate is mildly elevated Objective Data Vital Signs: Vital Signs Temp Pulse Resp BP Pulse Ox 98.8 F 100 18 114/73 97 05/18/21 05:00 05/18/21 07:00 05/18/21 07:00 05/18/21 07:00 05/18/21 07:00 Oxygen Delivery Method Room Air Weight: 164 lb 10.965 oz Body Mass Index (BMI) 26.6 Intake & Output: Intake and Output for Last 24 Hours 05/16/21 05/17/21 05/18/21 23:59 23:59 23:59 Intake Total 1670 / 1670 38.67 / 38.67 Output Total 550 / 550 1550 / 1550 Balance 1120 / 1120 -1511.33 / -1511.33 Lab / Micro Data Result Diagrams: 05/18/21 03:34 05/18/21 03:34 Labs: Laboratory Results - last 24 hr 05/17/21 12:10: WBC 9.8, RBC 3.85 L, Hgb 11.5 L, Hct 35.7 L, MCV 92.7, MCH 29.9, MCHC 32.2, RDW Std Deviation 47.6 H, RDW Coeff of Vishal 14.0, Plt Count 223, MPV 11.1, Immature Gran % (Auto) 0.400, Neut % (Auto) 77.6 H, Lymph % (Auto) 10.7 L, [place] % (Auto) 10.1 H, Eos % (Auto) 0.8, Baso % (Auto) 0.4, Absolute Neuts (auto) 7.6, Absolute Lymphs (auto) 1.05, Nucleated RBC % 0 05/17/21 12:10: PT 30.2 H, INR 3.0, APTT 63.1 H 05/17/21 12:10: Sodium 136, Potassium 4.4, Chloride 108 H, Carbon Dioxide 24.0, Anion Gap 4 L, BUN 20 H, Creatinine 1.53 H, Estim Creat Clear Calc 38.22, Est GFR (MDRD) Af Amer 57 L, Est GFR (MDRD) Non-Af 47 L, BUN/Creatinine Ratio 13.1, Glucose 97, Calcium 8.2 L, Total Bilirubin 0.40, AST 48 H, ALT 62 H, Alkaline Phosphatase 129 H, Total Protein 6.9, Albumin 2.9 L, Globulin 4.0, Albumin/Globulin Ratio 0.7 L 05/17/21 12:10: Lactic Acid 0.8 05/17/21 12:15: Urine Color Yellow, Urine Clarity Sl. Cloudy, Urine pH 6.0, Ur Specific [place] 1.015, Urine Protein 30 H, Urine Glucose (UA) Normal, Urine Ketones Negative, Urine Occult Blood 250 H, Urine Nitrite Negative, Urine Bilirubin Negative, Urine Urobilinogen Normal, Ur Leukocyte Esterase 500 H, Urine RBC 25-50 SEEN, Urine WBC 10-25 SEEN, Ur Squamous Epith Cells 0 SEEN, Urine Bacteria 0 SEEN, Urine Mucus 0 SEEN 05/18/21 03:34: WBC 9.0, RBC 3.61 L, Hgb 10.7 L, Hct 33.1 L, MCV 91.7, MCH 29.6, MCHC 32.3, RDW Std Deviation 46.5 H, RDW Coeff of Vishal 13.8, Plt Count 221, MPV 11.1, Immature Gran % (Auto) 0.400, Neut % (Auto) 71.5 H, Lymph % (Auto) 12.6 L, [place] % (Auto) 13.9 H, Eos % (Auto) 1.4, Baso % (Auto) 0.2, Absolute Neuts (auto) 6.4, Absolute Lymphs (auto) 1.14, Nucleated RBC % 0 05/18/21 03:34: Sodium 137, Potassium 4.1, Chloride 106, Carbon Dioxide 26.0, Anion Gap 5, BUN 19 H, Creatinine 1.24, Estim Creat Clear Calc 47.16, Est GFR (MDRD) Af Amer 73, Est GFR (MDRD) Non-Af 61, BUN/Creatinine Ratio 15.3, Glucose 105, Calcium 8.3 L 05/18/21 03:34: PT 23.4 H, INR 2.2 Cardiology Labs/Tests 05/17/21 12:10: WBC 9.8, RBC 3.85 L, Hgb 11.5 L, Hct 35.7 L, MCV 92.7, MCH 29.9, MCHC 32.2, Plt Count 223, MPV 11.1, Immature Gran % (Auto) 0.400, Neut % (Auto) 77.6 H, Lymph % (Auto) 10.7 L, [place] % (Auto) 10.1 H, Eos % (Auto) 0.8, Baso % (Auto) 0.4, Absolute Neuts (auto) 7.6, Nucleated RBC % 0 05/17/21 12:10: PT 30.2 H, INR 3.0, APTT 63.1 H 05/17/21 12:10: Sodium 136, Potassium 4.4, Chloride 108 H, Carbon Dioxide 24.0, Anion Gap 4 L, BUN 20 H, Creatinine 1.53 H, Est GFR (MDRD) Af Amer 57 L, Est GFR (MDRD) Non-Af 47 L, BUN/Creatinine Ratio 13.1, Glucose 97, Calcium 8.2 L, Total Bilirubin 0.40 05/17/21 12:10: Lactic Acid 0.8 05/17/21 12:15: Urine Color Yellow, Urine Clarity Sl. Cloudy, Urine pH 6.0, Ur Specific [place] 1.015, Urine Protein 30 H, Urine Glucose (UA) Normal, Urine Ketones Negative, Urine Occult Blood 250 H, Urine Nitrite Negative, Urine Bilirubin Negative, Urine Urobilinogen Normal, Ur Leukocyte Esterase 500 H, Urine RBC 25-50 SEEN, Urine WBC 10-25 SEEN 05/18/21 03:34: WBC 9.0, RBC 3.61 L, Hgb 10.7 L, Hct 33.1 L, MCV 91.7, MCH 29.6, MCHC 32.3, Plt Count 221, MPV 11.1, Immature Gran % (Auto) 0.400, Neut % (Auto) 71.5 H, Lymph % (Auto) 12.6 L, [place] % (Auto) 13.9 H, Eos % (Auto) 1.4, Baso % (Auto) 0.2, Absolute Neuts (auto) 6.4, Nucleated RBC % 0 05/18/21 03:34: Sodium 137, Potassium 4.1, Chloride 106, Carbon Dioxide 26.0, Anion Gap 5, BUN 19 H, Creatinine 1.24, Est GFR (MDRD) Af Amer 73, Est GFR (MDRD) Non-Af 61, BUN/Creatinine Ratio 15.3, Glucose 105, Calcium 8.3 L 02/05/22 03:34: PT 23.4 H, INR 2.2 Rhythm: EKG: ECHO: Stress Test: Cardiac Cath: PCI: CT Surgery: Holter monitor: EPS: PPM: CXR: Chest CT Scan: Physical Exam Const alert, oriented x3 and no apparent distress General Appearance: cooperative HEENT hearing grossly normal bilaterally Head and Scalp: atraumatic Eyes EOMs intact bilaterally Neck General: normal visual inspection Chest inspection of chest normal and palpation of chest normal Resp normal respiratory effort Auscultation: clear to auscultation bilaterally Cardio S1 normal heart sound and S2 normal heart sound Cardio Narrative: Irregular Jugular Venous Distention: JVD GI normal to inspection, nondistended, normoactive bowel sounds Extremity normal capillary refill and no pedal edema Peripheral Pulses: Yes pulses 2+ throughout and femoral pulses present Skin no rashes or lesions noted Neuro oriented x3 and CN's II-XII intact bilaterally Psych Appearance: grossly normal and appropriate Assessment & Plan Assessment/Plan (1) Paroxysmal atrial fibrillation with RVR: PLAN: He does have a history of paroxysmal atrial fibrillation and it is not clear whether it is the sepsis which has made to this come on at this time. He appeared to have converted back to sinus rhythm after increasing his beta-luis. However through the night he went back into atrial fibrillation. My recommendation would be for him to continue the same medications but at a higher dose. An echocardiogram will be performed to assess his ventricular function. I would leave the issues of the anticoagulation up to you for now. He is rather asymptomatic and I think that after the echo is performed and he has had at least 1 dose of the medication, from the cardiac standpoint he can be managed as an outpatient. Thank you for allowing me to participate in the care of your patient. Please don't hesitate to call if any issues arise.
--- NOTE | 2021-05-18 08:31 | CON.PCM.UR_ITS ---
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: PLAN: Continue with tamsulosin finasteride (2) Urinary retention: PLAN: Continue with Walker catheter (3) Bilateral hydronephrosis: PLAN: Continue with Walker catheter (4) UTI (urinary tract infection): PLAN: Treat antibiotics accordingly (5) MICKEY (acute kidney injury): PLAN: Should resolve with Walker catheter (6) Pyelonephritis, acute: PLAN: Should resolve with antibiotics (7) Creatinine elevation: PLAN: Improving (8) Acute urinary retention: PLAN: Resolved with Walker HPI Consult Data Date of Consult: 05/18/21 HPI Narrative HPI Narrative: YO IVY, is a 75 M who presents to the emergency room with a distended bladder bilateral hydronephrosis enlarged prostate he has a history of a large prostate 2 - biopsies in the past saw urologist in the past for an elevated PSA up to 13 he does not remember his most recent PSA he has been on tamsulosin and now is also on dutasteride, he does take Coumadin for atrial fibrillation was brought in for retention of urine UTI and A. fib. Currently has a catheter in place and the urine is clear CT scan reviewed he has a very distended bladder bilateral hydronephrosis and enlarged prostate I suspect he is going to need prostate surgery with a TURP, He will need to follow up as an outpatient for a cysto PFS Medical History Atrial fibrillation Former smoker Hepatitis HTN (hypertension) Tinnitus of left ear Home Medications dutasteride 0.5 mg PO DAILY 05/16/21 [History Last Taken Unknown] metoprolol succinate 25 mg PO DAILY 05/16/21 [History Last Taken 05/17/21] ondansetron 4 mg PO Q8H PRN PRN #12 tab 05/16/21 [Rx Last Taken Unknown] tamsulosin 0.4 mg PO DAILY 05/16/21 [History Last Taken 05/16/21] warfarin 5 mg PO MOWEFR 05/16/21 [History Last Taken 05/15/21] cephalexin 500 mg PO Q6 05/17/21 [History Last Taken 05/17/21] multivitamin [Multi-Daily] 1 tab PO DAILY 05/17/21 [History Last Taken 05/17/21] warfarin 2.5 mg PO SUTUTHSA 05/17/21 [History Last Taken 05/14/21] Allergy/AdvReac Type Severity Reaction Status Date / Time No Known Allergies Allergy Verified 05/17/21 11:37 Family History Other Cancer Social History Smoking Status: Former smoker Physical Exam Const alert and oriented x3 General Appearance: cooperative HEENT normocephalic, head/scalp atraumatic, EAC's normal and TM's normal bilaterally Eyes PERRL and EOMs intact bilaterally Pupil: sluggish Neck no lymphadenopathy, supple and no JVD General: trachea midline Lymph Lymphatic: no lymphadenopathy noted, lymphedema and lymphadenopathy Resp normal respiratory effort, normal air movement and clear to auscultation bilaterally Cardio regular rate, regular rhythm and peripheral pulses 2+ throughout GI soft to palpation, non-tender and non-distended Extremity normal capillary refill and no clubbing, cyanosis or edema General Extremity: no tenderness to palpation of joints or extremities Skin no rashes or lesions noted General Skin Exam: turgor normal Lesions: no lesions Rashes: no rashes Neuro CN's II-XII intact bilaterally Speech: speech normal Motor Exam: strength 5/5 throughout; Negative for general weakness Psych thought process normal, cooperative and affect normal Appearance: appropriate Lab / Micro Data Result Diagrams: 05/18/21 03:34 05/18/21 03:34 Labs: Laboratory Results - last 24 hr 05/17/21 12:10: WBC 9.8, RBC 3.85 L, Hgb 11.5 L, Hct 35.7 L, MCV 92.7, MCH 29.9, MCHC 32.2, RDW Std Deviation 47.6 H, RDW Coeff of Vishal 14.0, Plt Count 223, MPV 11.1, Immature Gran % (Auto) 0.400, Neut % (Auto) 77.6 H, Lymph % (Auto) 10.7 L, [place] % (Auto) 10.1 H, Eos % (Auto) 0.8, Baso % (Auto) 0.4, Absolute Neuts (auto) 7.6, Absolute Lymphs (auto) 1.05, Nucleated RBC % 0 05/17/21 12:10: PT 30.2 H, INR 3.0, APTT 63.1 H 05/17/21 12:10: Sodium 136, Potassium 4.4, Chloride 108 H, Carbon Dioxide 24.0, Anion Gap 4 L, BUN 20 H, Creatinine 1.53 H, Estim Creat Clear Calc 38.22, Est GFR (MDRD) Af Amer 57 L, Est GFR (MDRD) Non-Af 47 L, BUN/Creatinine Ratio 13.1, Glucose 97, Calcium 8.2 L, Total Bilirubin 0.40, AST 48 H, ALT 62 H, Alkaline Phosphatase 129 H, Total Protein 6.9, Albumin 2.9 L, Globulin 4.0, Albumin/Globu jameel Ratio 0.7 L 05/17/21 12:10: Lactic Acid 0.8 05/17/21 12:15: Urine Color Yellow, Urine Clarity Sl. Cloudy, Urine pH 6.0, Ur Specific [place] 1.015, Urine Protein 30 H, Urine Glucose (UA) Normal, Urine Ketones Negative, Urine Occult Blood 250 H, Urine Nitrite Negative, Urine Bilirubin Negative, Urine Urobilinogen Normal, Ur Leukocyte Esterase 500 H, Urine RBC 25-50 SEEN, Urine WBC 10-25 SEEN, Ur Squamous Epith Cells 0 SEEN, Urine Bacteria 0 SEEN, Urine Mucus 0 SEEN 05/18/21 03:34: WBC 9.0, RBC 3.61 L, Hgb 10.7 L, Hct 33.1 L, MCV 91.7, MCH 29.6, MCHC 32.3, RDW Std Deviation 46.5 H, RDW Coeff of Vishal 13.8, Plt Count 221, MPV 11.1, Immature Gran % (Auto) 0.400, Neut % (Auto) 71.5 H, Lymph % (Auto) 12.6 L, [place] % (Auto) 13.9 H, Eos % (Auto) 1.4, Baso % (Auto) 0.2, Absolute Neuts (auto) 6.4, Absolute Lymphs (auto) 1.14, Nucleated RBC % 0 05/18/21 03:34: Sodium 137, Potassium 4.1, Chloride 106, Carbon Dioxide 26.0, Anion Gap 5, BUN 19 H, Creatinine 1.24, Estim Creat Clear Calc 47.16, Est GFR (MDRD) Af Amer 73, Est GFR (MDRD) Non-Af 61, BUN/Creatinine Ratio 15.3, Glucose 105, Calcium 8.3 L 05/18/21 03:34: PT 23.4 H, INR 2.2
--- NOTE | 2021-05-18 08:34 | PCM.DC ---
Discharge Instructions Diet Discharge Diet: No restrictions Activity Discharge Activity: Return to Normal Activity and May Not Drive (while taking narcotic pain medications.) Dressing / Incision Call your doctor if you observe: Fever of 101 or Higher Catheter: Walker to leg bag and Walker to large bag Drain: [place] Follow Up Care Please Follow Up With: Martinez Luevano MD When: Call [phone] for an appointment Test Results: Test results from this visit will be discussed in further detail at your follow-up appointment, if applicable. Discharge Plan Admission Admit Date/Time: 05/17/21 13:24 Attending Provider: Mason Rodríguez Primary Care Provider: Iván Aponte Consulting Providers: Nimesh Ledezma ; Martinez Luevano Discharge Orders/Prescriptions Prescriptions: No Action tamsulosin 0.4 mg capsule 0.4 mg PO DAILY RF: 0 warfarin 5 mg tablet 5 mg PO MOWEFR RF: 0 metoprolol succinate 25 mg tablet extended release 24 hr 25 mg PO DAILY RF: 0 dutasteride 0.5 mg capsule 0.5 mg PO DAILY RF: 0 ondansetron [ondansetron] 4 MG tablet 4 mg PO Q8H PRN PRN (Reason: Nausea) Qty: 12 RF: 0 multivitamin [Multi-Daily] Tablet 1 tab PO DAILY RF: 0 warfarin 2.5 mg Tablet 2.5 mg PO SUTUTHSA RF: 0 cephalexin [cephalexin] 500 MG capsule 500 mg PO Q6 RF: 0
[2021-05-18] MEDS: Multivitamins,Therapeutic Tablet 1 TABLET PO (09:03)
[2021-05-18] MEDS: Finasteride 5 MG Tablet PO (09:04)
[2021-05-18] MEDS: Metoprolol Tartrate 50 MG Tablet PO ×2 (09:09→20:07)
[2021-05-18] MEDS: Ceftriaxone 1 GM/50 ML BAG IV (09:26)
--- NOTE | 2021-05-18 10:20 | CASEMGMT ---
WILSON MALONE Assessment: Face to Face with pt for initial transition planning/care coordination assessment. WILSON MALONE introduced self and role at [facility], pt voices understanding and consents to assessment. Pt is A/O x4 and answers all questions appropriately at this time. Pt sitting up in bed on RA in no distress. Care providers, pharmacy, and demographics verified/updated. Admitting Dx: afib, UTI, bacteremia PCP:[facility] Specialists: Pt states he will now see Brisa, cardio and Bassem, uro Preferred Pharmacy:[facility] Retail Insurance: [employer] Prescription Benefit: yes LW/HPOA: Pt states he has a LW/DPOA and his is his DPOA. He is aware this is not on file at [facility] and he may bring in to be scanned into his chart. LNOK: Sonia Potter, Living Arrangements: Pt lives with in a two story house with one step to enter. Pt reports he is I in ADL's and denies concerns at home. Transportation: Pt drives self and denies concerns with transportation. DME/HHC/SNF: Pt has canes at home but does not use. Pt denies hx of HHC or SNF stays. 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 Pt is aware he will dc with a iglesias. He denies any need for assistance with this. He states he feels comfortable switching leg bag to iglesias bag. Pt states no concerns with going home at time of dc. Pt states no further concerns/needs. CM to follow. Advised pt to ask CM if any further question/concerns/needs arise, voices understanding. Pt Goal: Home Plan: Home
--- NOTE | 2021-05-18 10:53 | PN.HOSP_ITS ---
Subjective Subjective Feels well, has no shortness of breath or chest pain he did go back in the sinus rhythm temporarily yesterday and then this morning was back into RVR and was started on a Cardizem drip. His metoprolol was increased by cardiology from 50 daily to 50 twice daily Objective Data Objective Data Vital Signs: Vital Signs Temp Pulse Resp BP Pulse Ox 98.8 F 95 18 106/83 H 97 05/18/21 05:00 05/18/21 10:00 05/18/21 10:00 05/18/21 10:00 05/18/21 10:00 Oxygen Delivery Method Room Air Weight: 164 lb 10.965 oz Body Mass Index (BMI) 26.6 Intake & Output: Intake and Output for Last 24 Hours 05/17/21 05/18/21 05/19/21 03:59 03:59 03:59 Intake Total 1688.67 / 1693.67 87.50 / 87.50 Output Total 550 / 550 1550 / 1550 Balance 1138.67 / 1143.67 -1462.50 / -1462.50 Lab / Micro Data Result Diagrams: 05/18/21 03:34 05/18/21 03:34 Labs: Laboratory Results - last 24 hr 05/17/21 12:10: WBC 9.8, RBC 3.85 L, Hgb 11.5 L, Hct 35.7 L, MCV 92.7, MCH 29.9, MCHC 32.2, RDW Std Deviation 47.6 H, RDW Coeff of Vishal 14.0, Plt Count 223, MPV 11.1, Immature Gran % (Auto) 0.400, Neut % (Auto) 77.6 H, Lymph % (Auto) 10.7 L, [place] % (Auto) 10.1 H, Eos % (Auto) 0.8, Baso % (Auto) 0.4, Absolute Neuts (auto) 7.6, Absolute Lymphs (auto) 1.05, Nucleated RBC % 0 05/17/21 12:10: PT 30.2 H, INR 3.0, APTT 63.1 H 05/17/21 12:10: Sodium 136, Potassium 4.4, Chloride 108 H, Carbon Dioxide 24.0, Anion Gap 4 L, BUN 20 H, Creatinine 1.53 H, Estim Creat Clear Calc 38.22, Est GFR (MDRD) Af Amer 57 L, Est GFR (MDRD) Non-Af 47 L, BUN/Creatinine Ratio 13.1, Glucose 97, Calcium 8.2 L, Total Bilirubin 0.40, AST 48 H, ALT 62 H, Alkaline Phosphatase 129 H, Total Protein 6.9, Albumin 2.9 L, Globulin 4.0, Albumin/Globulin Ratio 0.7 L 05/17/21 12:10: Lactic Acid 0.8 05/17/21 12:15: Urine Color Yellow, Urine Clarity Sl. Cloudy, Urine pH 6.0, Ur Specific [place] 1.015, Urine Protein 30 H, Urine Glucose (UA) Normal, Urine Ketones Negative, Urine Occult Blood 250 H, Urine Nitrite Negative, Urine Bilirubin Negative, Urine Urobilinogen Normal, Ur Leukocyte Esterase 500 H, Urine RBC 25-50 SEEN, Urine WBC 10-25 SEEN, Ur Squamous Epith Cells 0 SEEN, Urine Bacteria 0 SEEN, Urine Mucus 0 SEEN 05/18/21 03:34: WBC 9.0, RBC 3.61 L, Hgb 10.7 L, Hct 33.1 L, MCV 91.7, MCH 29.6, MCHC 32.3, RDW Std Deviation 46.5 H, RDW Coeff of Vishal 13.8, Plt Count 221, MPV 11.1, Immature Gran % (Auto) 0.400, Neut % (Auto) 71.5 H, Lymph % (Auto) 12.6 L, [place] % (Auto) 13.9 H, Eos % (Auto) 1.4, Baso % (Auto) 0.2, Absolute Neuts (auto) 6.4, Absolute Lymphs (auto) 1.14, Nucleated RBC % 0 05/18/21 03:34: Sodium 137, Potassium 4.1, Chloride 106, Carbon Dioxide 26.0, Anion Gap 5, BUN 19 H, Creatinine 1.24, Estim Creat Clear Calc 47.16, Est GFR (MDRD) Af Amer 73, Est GFR (MDRD) Non-Af 61, BUN/Creatinine Ratio 15.3, Glucose 105, Calcium 8.3 L 05/18/21 03:34: PT 23.4 H, INR 2.2 Micro: Microbiology 05/17/21 12:15 Urine, Clean Catch Urine Culture - Preliminary Culture exhibits no growth. Radiography Diagnostic Testing: Radiology Impression Echocardiogram 05/18/21 05:55 Interpretation Summary Normal LV size. Left ventricular systolic function is normal. The estimated ejection fraction is 55 %. Mild concentric left ventricular hypertrophy. Mild tricuspid valve insufficiency. Ordering Physician: Mason Rodríguez Referring Physician: Iván Aponte Performed By: Patricia Kiran RDCS, RVT Physical Exam Const alert, oriented x3 and no apparent distress General Appearance: cooperative HEENT normocephalic and moist oral mucous membranes Eyes PERRL, EOMs intact bilaterally and conjunctivae normal Neck supple and no JVD Resp normal respiratory effort, no retractions, no use of accessory muscles and clear to auscultation bilaterally Auscultation: Negative for crackles, rales, rhonchi or wheezes Cardio S1 normal heart sound, S2 normal heart sound and no murmurs Rate: tachycardic Rhythm: abnormal rhythm GI soft to palpation, non-tender and non-distended; Negative for hepatosplenomegaly Extremity no clubbing, cyanosis or edema Skin no rashes or lesions noted Neuro no focal motor deficits and no sensory deficits noted Psych affect normal Appearance: appropriate Assessment & Plan Assessment/Plan (1) Acute urinary retention: (2) Bacteremia due to Gram-negative bacteria: (3) UTI (urinary tract infection): (4) MICKEY (acute kidney injury): (5) Paroxysmal atrial fibrillation with RVR: PLAN: 1. E. coli UTI with gram-negative verónica bacteremia without sepsis/urinary retention with MICKEY ?His renal failure was secondary to his urinary retention lactic acid was unremarkable ?He did receive some IV fluids in the ER and his creatinine is improving significantly with Walker placement ?We will continue with his home Flomax and dutasteride and continue with the Walker, consult urology ?Continue with Rocephin IV blood culture sensitivities are pending 2. A. fib with RVR ?Has been placed on a Cardizem drip secondary to recurrence of his RVR. Cardiology increase his metoprolol to 50 mg p.o. twice daily ?We will obtain an echo as we do not have any records of him here and will consult cardiology for outpatient establishment ?INR is 2.2 today, will continue to monitor DVT: Charges/Coding Visit Charges Inpatient E&M: 63187 Subs Hosp L2
[2021-05-18] MEDS: Ondansetron 4 MG/2 ML Vial IV ×2 (11:35→20:07)
[2021-05-18] MEDS: 0.9% Saline Lock 10 ML Syringe IV (11:36)
[2021-05-18] MEDS: Tamsulosin HCl 0.4 MG Capsule PO (16:38)
[2021-05-19] VITALS (10 sets, daily range): BP systolic 109–111; BP diastolic 64–74; PULSE 93–138; RESP 18; TEMP 36.8–36.9; O2SAT 97–98
[2021-05-19 06:32] LABS: Absolute Lymphocyte Count 1.61 X10^3/uL (0.83-4.51); Absolute Neutrophil Count 5.7 X10^3/uL (2.0-7.7); Basophil# 0.03 X10^3/uL; Basophil% 0.4 % (0-1); Eosinophils% 3.6 % (0-5); Hematocrit 34.9 % (40-54); Hemoglobin 11.6 g/dL (13.0-16.5); Lymphocyte # 1.61 X10^3/ul (0.83-4.51); Lymphocyte % 19.1 % (19-41); Mean Corp Hgb Conc 33.2 g/dL (32-36); Mean Corpuscular Hgb 30.5 pg (27.0-32.0); Mean Corpuscular Volume 91.8 fL (80-94); Monocyte# 0.76 X10^3/uL; NRBC Flagged by Analyzer 0 % (0-5); Neutrophil # 5.71 X10^3/uL (2.7-7.7); Neutrophil % 67.4 % (47-70); Platelet Count 308 K/mm3 (150-450); RBC Distribution Width CV 13.3 % (11.6-14.6); RBC Distribution Width SD 45.5 fl (35.1-43.9); White Blood Count 8.5 K/mm3 (4.4-11.0)
[2021-05-19 06:51] LABS: International Normalized Ratio 1.5; Prothrombin Time (Protime)PT. 17.4 SECONDS (11.7-14.9)
[2021-05-19 06:59] LABS: Anion Gap 5 (5-15); BUN 22 mg/dL (7-18); BUN/Creat Ratio 19.3 RATIO (10-20); Calcium,Total 8.5 mg/dL (8.5-10.1); Chloride 105 mmol/L (98-107); Creatinine, Serum 1.14 mg/dL (0.70-1.30); EST Glomerular Filtration Rate 67 mL/min (>60); Est Glom Filt Rate - Afr Amer 81 mL/min (>60); Glucose 132 mg/dL (74-106); Sodium Level 137 mmol/L (136-145)
[2021-05-19] MEDS: Metoprolol Tartrate 25 MG Tablet 75 MG PO (09:13)
[2021-05-19] MEDS: Finasteride 5 MG Tablet PO (09:13)
[2021-05-19] MEDS: Multivitamins,Therapeutic Tablet 1 TABLET PO (09:13)
[2021-05-19] MEDS: Ceftriaxone 1 GM/50 ML BAG IV (09:14)
--- NOTE | 2021-05-19 09:34 | PN.HOSP_ITS ---
Subjective Subjective Remains tachycardia but is asymptomatic. Cultures have come back as the same E. coli sensitive to Ancef and Rocephin Objective Data Objective Data Vital Signs: Vital Signs Temp Pulse Resp BP Pulse Ox 98.3 F 125 H 18 111/66 97 05/19/21 09:05 05/19/21 09:13 05/19/21 09:05 05/19/21 09:13 05/19/21 09:05 Oxygen Delivery Method Room Air Weight: 164 lb 10.965 oz Body Mass Index (BMI) 26.6 Intake & Output: Intake and Output for Last 24 Hours 05/18/21 05/19/21 05/20/21 03:59 03:59 03:59 Intake Total 1688.67 / 1693.67 807.50 / 807.50 Output Total 550 / 550 3850 / 3850 1100 / 1100 Balance 1138.67 / 1143.67 -3042.50 / -3042.50 -1100 / -1100 Lab / Micro Data Result Diagrams: 05/19/21 05:51 05/19/21 05:51 Labs: Laboratory Results - last 24 hr 05/19/21 05:51: PT 17.4 H, INR 1.5 05/19/21 05:51: WBC 8.5, RBC 3.80 L, Hgb 11.6 L, Hct 34.9 L, MCV 91.8, MCH 30.5, MCHC 33.2, RDW Std Deviation 45.5 H, RDW Coeff of Vishal 13.3, Plt Count 308, MPV 11.0, Immature Gran % (Auto) 0.500, Neut % (Auto) 67.4, Lymph % (Auto) 19.1, [place] % (Auto) 9.0, Eos % (Auto) 3.6, Baso % (Auto) 0.4, Absolute Neuts (auto) 5.7, Absolute Lymphs (auto) 1.61, Nucleated RBC % 0 05/19/21 05:51: Sodium 137, Potassium 4.0, Chloride 105, Carbon Dioxide 27.0, Anion Gap 5, BUN 22 H, Creatinine 1.14, Estim Creat Clear Calc 51.30, Est GFR (MDRD) Af Amer 81, Est GFR (MDRD) Non-Af 67, BUN/Creatinine Ratio 19.3, Glucose 132 H, Calcium 8.5 Micro: Microbiology 05/17/21 12:31 Blood Culture (Wb) - Anticubital Right Blood Culture - Preliminary No growth in 48 hours. 05/17/21 12:10 Blood Culture (Wb) - Anticubital Left Blood Culture - Preliminary No growth in 48 hours. 05/17/21 12:15 Urine, Clean Catch Urine Culture - Preliminary Culture exhibits no growth. Radiography Diagnostic Testing: Radiology Impression Echocardiogram 05/18/21 05:55 Interpretation Summary Normal LV size. Left ventricular systolic function is normal. The estimated ejection fraction is 55 %. Mild concentric left ventricular hypertrophy. Mild tricuspid valve insufficiency. Ordering Physician: Mason Rodríguez Referring Physician: Iván Aponte Performed By: Patricia Kiran, MIKALA, RVT Physical Exam Const alert, oriented x3 and no apparent distress General Appearance: cooperative HEENT normocephalic and moist oral mucous membranes Eyes PERRL, EOMs intact bilaterally and conjunctivae normal Neck supple and no JVD Resp normal respiratory effort, no retractions, no use of accessory muscles and clear to auscultation bilaterally Auscultation: Negative for crackles, rales, rhonchi or wheezes Cardio S1 normal heart sound, S2 normal heart sound and no murmurs Rate: tachycardic Rhythm: abnormal rhythm GI soft to palpation, non-tender and non-distended; Negative for hepatosplenomegaly Extremity no clubbing, cyanosis or edema Skin no rashes or lesions noted Neuro no focal motor deficits and no sensory deficits noted Psych affect normal Appearance: appropriate Assessment & Plan Assessment/Plan (1) Acute urinary retention: (2) Bacteremia due to Gram-negative bacteria: (3) UTI (urinary tract infection): (4) MICKEY (acute kidney injury): (5) Paroxysmal atrial fibrillation with RVR: PLAN: 1. E. coli UTI with E. coli bacteremia without sepsis/urinary retention with MICKEY ?His renal failure was secondary to his urinary retention lactic acid was unremarkable ?He did receive some IV fluids in the ER and his creatinine is improving significantly with Walker placement ?We will continue with his home Flomax and dutasteride and continue with the Walker, follow-up with urology as an outpatient ?Continue with Rocephin IV, on discharge can complete 14 days total of antibiotics with Keflex 2. A. fib with RVR ?Cardizem drip has been discontinued however he still RVR, increase his metoprolol to 75 mg p.o. twice daily ?We will obtain an echo as we do not have any records of him here [facility] ?INR is 1.5 today, will restart his Coumadin Disposition: He is anxious to leave I told him that he could only leave AMA given the fact that his heart rate is uncontrolled, I did discuss with him at length the risks of signing out to the hospital AMA. DVT: Coumadin Charges/Coding Visit Charges Inpatient E&M: 08511 Subs Hosp L2
--- NOTE | 2021-05-19 09:51 | PN.CARD_ITS ---
Subjective Subjective Patient seen and evaluated. Still asymptomatic but in A. fib Objective Data Vital Signs: Vital Signs Temp Pulse Resp BP Pulse Ox 98.3 F 125 H 18 111/66 97 05/19/21 09:05 05/19/21 09:13 05/19/21 09:05 05/19/21 09:13 05/19/21 09:05 Oxygen Delivery Method Room Air Weight: 164 lb 10.965 oz Body Mass Index (BMI) 26.6 Intake & Output: Intake and Output for Last 24 Hours 05/17/21 05/18/21 05/19/21 23:59 23:59 23:59 Intake Total 1670 / 1670 826.17 / 826.17 Output Total 550 / 550 3850 / 3850 1100 / 1100 Balance 1120 / 1120 -3023.83 / -3023.83 -1100 / -1100 Lab / Micro Data Result Diagrams: 05/19/21 05:51 05/19/21 05:51 Labs: Laboratory Results - last 24 hr 05/19/21 05:51: PT 17.4 H, INR 1.5 05/19/21 05:51: WBC 8.5, RBC 3.80 L, Hgb 11.6 L, Hct 34.9 L, MCV 91.8, MCH 30.5, MCHC 33.2, RDW Std Deviation 45.5 H, RDW Coeff of Vishal 13.3, Plt Count 308, MPV 11.0, Immature Gran % (Auto) 0.500, Neut % (Auto) 67.4, Lymph % (Auto) 19.1, [place] % (Auto) 9.0, Eos % (Auto) 3.6, Baso % (Auto) 0.4, Absolute Neuts (auto) 5.7, Absolute Lymphs (auto) 1.61, Nucleated RBC % 0 05/19/21 05:51: Sodium 137, Potassium 4.0, Chloride 105, Carbon Dioxide 27.0, Anion Gap 5, BUN 22 H, Creatinine 1.14, Estim Creat Clear Calc 51.30, Est GFR (MDRD) Af Amer 81, Est GFR (MDRD) Non-Af 67, BUN/Creatinine Ratio 19.3, Glucose 132 H, Calcium 8.5 Micro: Microbiology 05/17/21 12:31 Blood Culture (Wb) - Anticubital Right Blood Culture - Preliminary No growth in 48 hours. 05/17/21 12:10 Blood Culture (Wb) - Anticubital Left Blood Culture - Preliminary No growth in 48 hours. 05/17/21 12:15 Urine, Clean Catch Urine Culture - Preliminary Culture exhibits no growth. Cardiology Labs/Tests 05/19/21 05:51: PT 17.4 H, INR 1.5 05/19/21 05:51: WBC 8.5, RBC 3.80 L, Hgb 11.6 L, Hct 34.9 L, MCV 91.8, MCH 30.5, MCHC 33.2, Plt Count 308, MPV 11.0, Immature Gran % (Auto) 0.500, Neut % (Auto) 67.4, Lymph % (Auto) 19.1, [place] % (Auto) 9.0, Eos % (Auto) 3.6, Baso % (Auto) 0.4, Absolute Neuts (auto) 5.7, Nucleated RBC % 0 05/19/21 05:51: Sodium 137, Potassium 4.0, Chloride 105, Carbon Dioxide 27.0, Anion Gap 5, BUN 22 H, Creatinine 1.14, Est GFR (MDRD) Af Amer 81, Est GFR (MDRD) Non-Af 67, BUN/Creatinine Ratio 19.3, Glucose 132 H, Calcium 8.5 Rhythm: EKG: ECHO: Stress Test: Cardiac Cath: PCI: CT Surgery: Holter monitor: EPS: PPM: CXR: Chest CT Scan: Physical Exam Const alert, oriented x3 and no apparent distress General Appearance: cooperative HEENT hearing grossly normal bilaterally Head and Scalp: atraumatic Eyes EOMs intact bilaterally Neck General: normal visual inspection Chest inspection of chest normal and palpation of chest normal Resp normal respiratory effort Auscultation: clear to auscultation bilaterally Cardio regular rate, S1 normal heart sound and S2 normal heart sound Jugular Venous Distention: JVD Rhythm: abnormal rhythm irregularly irregular GI normal to inspection, nondistended, normoactive bowel sounds Extremity normal capillary refill and no pedal edema Peripheral Pulses: Yes pulses 2+ throughout and femoral pulses present Skin no rashes or lesions noted Neuro oriented x3 and CN's II-XII intact bilaterally Psych Appearance: grossly normal and appropriate Assessment & Plan Assessment/Plan (1) Paroxysmal atrial fibrillation with RVR: PLAN: He does have a history of paroxysmal atrial fibrillation and it is not clear whether it is the sepsis which has made to this come on at this time. He appeared to have converted back to sinus rhythm after increasing his beta- luis. However through the night he went back into atrial fibrillation. My recommendation would be for him to continue the same medications but at a higher dose. His echocardiogram demonstrated preserved ejection fraction. He can resume his anticoagulation. If his heart rate is improved this afternoon he can be followed up as an outpatient.
[2021-05-19] MEDS: Metoprolol Tartrate 25 MG Tablet PO (12:48)
--- NOTE | 2021-05-19 15:36 | DCINST_ITS ---
Discharge Instructions Diet Discharge Diet: No restrictions Dressing / Incision Call your doctor if you observe: Fever of 101 or Higher, Shortness of breath, Dizziness, Fainting spells, Swelling in the ankles, Chest pain and Increased palpitations (irregular heartbeat) Catheter: Walker to leg bag and Walker to large bag Drain: [place] Follow Up Care Please Follow Up With: Martinez Luevano MD Test Results: Test results from this visit will be discussed in further detail at your follow-up appointment, if applicable. Discharge Plan Admission Admit Date/Time: 05/17/21 13:24 Attending Provider: Mason Rodríguez Primary Care Provider: Iván Aponte Consulting Providers: Nimesh Ledezma ; Martinez Luevano Discharge Orders/Prescriptions Prescriptions: New metoprolol tartrate 100 mg Tablet 100 mg PO BID Qty: 60 RF: 0 cephalexin 500 mg capsule 500 mg PO Q6H 3 Days Qty: 12 RF: 0 Continued tamsulosin 0.4 mg capsule 0.4 mg PO DAILY RF: 0 warfarin 5 mg tablet 5 mg PO MOWEFR RF: 0 dutasteride 0.5 mg capsule 0.5 mg PO DAILY RF: 0 multivitamin Tablet 1 tab PO DAILY RF: 0 warfarin 2.5 mg Tablet 2.5 mg PO SUTUTHSA RF: 0 cephalexin 500 MG capsule 500 mg PO Q6 RF: 0 Discontinued metoprolol succinate 25 mg tablet extended release 24 hr 25 mg PO DAILY RF: 0 ondansetron [ondansetron] 4 MG tablet 4 mg PO Q8H PRN PRN (Reason: Nausea) Qty: 12 RF: 0 Referrals / Follow Up: Nimesh Ledezma MD [STAFF PHYSICIAN] - Within 1 Month Martinez Luevano MD [STAFF PHYSICIAN] - Within 1 Week Iván Aponte MD [Primary Care Provider] - Within 1 Week Disposition Disposition (needs filled in before D/C Order can be placed): Home, Self Care
--- NOTE | 2021-05-19 15:44 | DS.PCM_ITS ---
Providers Date of Admission: 05/17/21 Primary Care Physician: Iván Aponte MD Consultations 05/17/21 14:18 Consult: Cardiology Routine Consulting Provider: Nimesh Ledezma Reason for Consult: Afib with RVR, establish care EMERGENT Consult: No Notified: Yes Date Notified: 05/17/21 Time Notified: 14:23 Method of Notification: Text Consult: Urology Routine Consulting Provider: Martinez Luevano Reason for Consult: New urinary retention with UTI, iglesias in place EMERGENT Consult: No Notified: Yes Date Notified: 05/17/21 Time Notified: 14:51 Method of Notification: Verbal Comments:: Will see as an outpatient Reason For Visit: AFIB, UTI, BACTEREMIA Diagnosis Discharge Diagnosis (1) Paroxysmal atrial fibrillation with RVR: Status: Acute Code(s): I48.0 - Paroxysmal atrial fibrillation Medications at Discharge Home Medications dutasteride 0.5 mg PO DAILY 05/16/21 tamsulosin 0.4 mg PO DAILY 05/16/21 warfarin 5 mg PO MOWEFR 05/16/21 cephalexin 500 mg PO Q6 05/17/21 multivitamin 1 tab PO DAILY 05/17/21 warfarin 2.5 mg PO SUTUTHSA 05/17/21 cephalexin 500 mg PO Q6H 3 Days #12 cap 05/19/21 metoprolol tartrate 100 mg PO BID #60 tab 05/19/21 Hospital Course Operations None Procedures None Summary of Care Provided Minutes Spent on Discharge: 37 Hospital Course: Per HPI: YO IVY, is a 75 M who presents to the hospital as a call back because his blood cultures came back positive for gram-negative rods. He had presented to the hospital yesterday for UTI. The urine culture is also coming back positive as well and he had been given a dose of Rocephin yesterday as well as a dose of Rocephin today in the ER and he had taken 2 doses of his Keflex. He states that he feels fine today and otherwise would not of come to the hospital if he had not been called. He was also while in the ER in RVR from his A. fib. 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 Of note yesterday his renal function was elevated to over 2 this was related to urinary retention which is likely the cause of his UTI. He did have a Iglesias placed in the ER yesterday and now his creatinine today is down to 1.53. Because of his A. fib he is on Coumadin and his INR was supratherapeutic though that is also better today at 3. Hospital Course: 1. E. coli UTI with E. coli bacteremia without sepsis/urinary retention with MICKEY?75-year-old male who presented to the hospital initially with fevers and chills was found to have a UTI. He was discharged home with 7 days of Keflex but then was called back into the hospital for bacteremia, despite feeling okay. While he was in the ER he was noticed to be in A. fib with RVR. Urine culture and blood cultures finalized with E. coli that was sensitive to the Keflex that he been started on. He has received 4 doses of Rocephin in the last 4 days, and he has a prescription at home for 7 days of Keflex 500 mg p.o. 4 times daily therefore we will give him another 3 days worth of the same prescription to complete a 14-day course. He does have a Iglesias in place and the source of infection is controlled. He will need to follow-up with urology in a week and in the meantime continue with his Flomax. I discussed with him the plan for discharge today he expressed understanding of the risk benefits of going home. 2. A. fib with RVR?cardiology was consulted secondary to his A. 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 He is completely asymptomatic and does not notice that he is in RVR. He was increasing his metoprolol up to about 100 mg p.o. twice daily today. He did get his first dose of 100 today and his heart rate was down below 120. This was discussed with cardiology and they felt that he was okay to be discharged home at this time. His INR was 1.5 so I do recommend he follow-up with his PCP as an outpatient to get this monitored I did restart his Coumadin on discharge, initially on admission his INR was elevated to 3. Weight / BMI Weight Weight: 164 lb 10.965 oz Body Mass Index (BMI) 26.6 ABG / Lab / Microbiology Data Result Diagrams: 05/19/21 05:51 05/19/21 05:51 Laboratory: Laboratory Results - last 24 hr 05/19/21 05:51: PT 17.4 H, INR 1.5 05/19/21 05:51: WBC 8.5, RBC 3.80 L, Hgb 11.6 L, Hct 34.9 L, MCV 91.8, MCH 30.5, MCHC 33.2, RDW Std Deviation 45.5 H, RDW Coeff of Vishal 13.3, Plt Count 308, MPV 11.0, Immature Gran % (Auto) 0.500, Neut % (Auto) 67.4, Lymph % (Auto) 19.1, Lown[place] % (Auto) 9.0, Eos % (Auto) 3.6, Baso % (Auto) 0.4, Absolute Neuts (auto) 5.7, Absolute Lymphs (auto) 1.61, Nucleated RBC % 0 05/19/21 05:51: Sodium 137, Potassium 4.0, Chloride 105, Carbon Dioxide 27.0, Anion Gap 5, BUN 22 H, Creatinine 1.14, Estim Creat Clear Calc 51.30, Est GFR (MDRD) Af Amer 81, Est GFR (MDRD) Non-Af 67, BUN/Creatinine Ratio 19.3, Glucose 132 H, Calcium 8.5 Microbiology: Microbiology 05/17/21 12:31 Blood Culture (Wb) - Anticubital Right Blood Culture - Preliminary No growth in 48 hours. 05/17/21 12:10 Blood Culture (Wb) - Anticubital Left Blood Culture - Preliminary No growth in 48 hours. 05/17/21 12:15 Urine, Clean Catch Urine Culture - Preliminary Culture exhibits no growth. D/C Instructions Discharge Diet: No restrictions Call your doctor if you observe: Fever of 101 or Higher, Shortness of breath, Dizziness, Fainting spells, Swelling in the ankles, Chest pain and Increased palpitations (irregular heartbeat) Catheter: Iglesias to leg bag and Iglesias to large bag Drain: [place] Please Follow Up With: Martinez Luevano MD When: Call [phone] for an appointment Meaningful Use Info Meaningful Use Diagnoses (Choose all that apply): None applicable Discharge Plan Admission Admit Date/Time: 05/17/21 13:24 Attending Provider: Mason Rodríguez Primary Care Provider: Iván Aponte Consulting Providers: Nimesh Ledezma ; Martinez Luevano Discharge Orders/Prescriptions Prescriptions: New metoprolol tartrate 100 mg Tablet 100 mg PO BID Qty: 60 RF: 0 cephalexin 500 mg capsule 500 mg PO Q6H 3 Days Qty: 12 RF: 0 Continued tamsulosin 0.4 mg capsule 0.4 mg PO DAILY RF: 0 warfarin 5 mg tablet 5 mg PO MOWEFR RF: 0 dutasteride 0.5 mg capsule 0.5 mg PO DAILY RF: 0 multivitamin Tablet 1 tab PO DAILY RF: 0 warfarin 2.5 mg Tablet 2.5 mg PO SUTUTHSA RF: 0 cephalexin 500 MG capsule 500 mg PO Q6 RF: 0 Discontinued metoprolol succinate 25 mg tablet extended release 24 hr 25 mg PO DAILY RF: 0 ondansetron [ondansetron] 4 MG tablet 4 mg PO Q8H PRN PRN (Reason: Nausea) Qty: 12 RF: 0 Referrals / Follow Up: Nimesh Ledezma MD [STAFF PHYSICIAN] - Within 1 Month Martinez Luevano MD [STAFF PHYSICIAN] - Within 1 Week Iván Aponte MD [Primary Care Provider] - Within 1 Week Disposition Disposition (needs filled in before D/C Order can be placed): Home, Self Care Charges/Coding Visit Charges Inpatient E&M: 37179 Disch Hosp
== END 2021-05-19 16:44 | disposition home or self-care (01) | DRG 690 ==
LOC: ED 11:27 → PCU 13:40
PROVIDERS: Admitting Provider Family Medicine; Emergency Provider Student in an Organized Health Care Education/Training Program; PCP Family Medicine; Visit Provider Family Medicine
DX: N39.0 Urinary tract infection, site not specified (principal); R78.81 Bacteremia; N17.9 Acute kidney failure, unspecified; N13.30 Unspecified hydronephrosis; I48.0 Paroxysmal atrial fibrillation; N10 Acute pyelonephritis; I10 Essential (primary) hypertension; N40.1 Benign prostatic hyperplasia with lower urinary tract symptoms; B96.20 Unspecified Escherichia coli [E. coli] as the cause of diseases classified elsewhere; R33.9 Retention of urine, unspecified; Z79.01 Long term (current) use of anticoagulants; Z87.891 Personal history of nicotine dependence
CPT/HCPCS: 36415; 51702; 74176; 80048; 80053; 81001; 83605; 85025; 85610; 85730; 87040; 87077; 87086; 87088; 87186; 93005; 93306; 96365; 96375; 96376; 97802; 99284; 99285; J7030; Q9957; A4216; J2405

== ENCOUNTER 2021-06-05 08:11 | Day surgery (SDC) | payer MEDICARE, SELFPAY ==
[2021-06-05] VITALS (10 sets, daily range): BP systolic 109–132; BP diastolic 53–82; PULSE 47–65; RESP 16–18; TEMP 36.1–36.8; O2SAT 94–100; BMI 27.7
--- NOTE | 2021-06-05 | PROS_PTH ---
PATIENT: YO IVY LOC: [facility] [place] U#:[id number] AGE/SX: 75/M ROOM: RE06/05/[address]: Dr. 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 See comment. AM:osmani 06/10/2021 COMMENT PROSTATE CANCER (TUR) SUMMARY: Procedure: transurethral resection of prostate (TURP) Histologic type: adenocarcinoma Histologic grade: Percent of pattern 4: 0% Percent of pattern 5: 100% Intraductal carcinoma: Not identified Estimated percent of tissue involved: 50% Greatest dimension: 10 mm Periprostatic fat invasion: Not applicable Seminal vesicle invasion: Not applicable Lymphvascular invasion: Not identified Perineural invasion: Present Treatment effect: Unknown Additional pathologic findings: Chronic inflammation and benign hyperplasia. Immunohistochemistry ([id number]) supports the above diagnosis. The above summary is in compliance with [employer] [place] [employer] (CAP) Cancer Protocols Checklist and [place] [employer] Committee on Cancer (AJCC), Staging Manual, 8th Ed. MICROSCOPIC DESCRIPTION Slides are reviewed. GROSS DESCRIPTION Received is one container labeled with the patient's name and designated prostate tissue. The specimen consists of multiple irregular fragments of pink-lewis, rubbery, soft tissue that in aggregate weigh 9.2 gm and measure in aggregate 6 x 6 x 0.7 cm. The entire specimen is submitted in ten cassettes. / AM:osmani 06/06/2021 TC:0 CPT: 19966
--- NOTE | 2021-06-05 | IMM_PTH ---
PATIENT: YO IVY [place] [facility] [place][id number] AGE/SX: 75/M ROOM: RE06/05/[address]: Dr. Martinez Luevano MD : 1945 BED: DIS: 06/06/2021 SPEC #: [id number] RECD: 06/07/21 11:48 STATUS: MATTIE REQ #: [id number] IESHA: 06/05/21 00:[address]: Martinez Luevano DEPT: IMMUNOHISTOCHEMISTRY RECD BY: Anya Pierson ENTERED: 06/07/21 11:49 SP TYPE: IMMUNO OTHR DR: Iván Aponte MD Tissues: Prostate, NOS Procedures: CK20 (add) CK7 (add) CK8 (add) 34BE12 (add) Pankeratin (initial) P40 (add) CD44 (add) PSAP (add) PHYSICIAN & INSTITUTION [place] [id number] SPECIMEN INFORMATION: Tissue Source: Prostate Clinical Info: Urinary retention, large prostate Specimen Number: [id number] #1 CPT code: 67840, 05674 x7 METHODOLOGY: Deparaffinized sections of prefer/formalin-fixed tissue or PAP/DQ stained slides are incubated with monoclonal/polyclonal antibodies/oligonucleotide probes. Localization is made via biotin free immunoperoxidase method. Appropriate controls are performed and reacted as expected. Results on target cell population are indicated in the following table: RESULTS: ANTIBODY / CLONE RESULT Block 1 AE1-3 (AE1/AE3/PCK26) positive CK7 (OV-TL12/30) negative CK8 (20mztzM98) positive CK20 (KS20.8) negative 34BE12 (34BE12) negative PSAP (PASE/4LJ) positive anti-CD44 (SP37) negative P40 (BC28) negative These tests were developed and their performance characteristics determined by [facility]. They may not have been cleared or approved by the U.S. Food and Drug Administration. The FDA has determined that such clearance or approval is not necessary. The above immunohistochemical/dualISH markers are ordered and reviewed by the Pathologist. INTERPRETATION: Prostate, transurethral resection: Adenocarcinoma of prostatic origin. AM:osmani 06/10/2021
[2021-06-05] MEDS: Lactated Ringers 1,000 ML 15 ML IV (08:20)
[2021-06-05 08:40] LABS: INR Fingerstick 1.1
[2021-06-05] MEDS: Cefazolin 2 GM in 0.9% Normal Saline 100 ML IV (11:10)
--- NOTE | 2021-06-05 12:00 | PCM.HP.STD ---
HPI - General HPI Narrative YO IVY, is a 75 M who presents for transurethral resection of the prostate for BPH with retention of urine PFSH Medical History (Updated 05/31/21 @ 09:00 by Farida Downing) Atrial fibrillation BPH with obstruction/lower urinary tract symptoms Cardiology follow-up encounter Former smoker Hepatitis History of atrial fibrillation History of echocardiogram History of edema HTN (hypertension) Indwelling urethral catheter present Leg cramps Paroxysmal atrial fibrillation with RVR Prostate disease Stuttering Tinnitus of left ear Urinary retention Wears dentures Wears glasses Home Medications warfarin 5 mg PO MOWEFR 05/16/21 [History Last Taken 05/30/21] multivitamin 1 tab PO DAILY 05/17/21 [History Last Taken 05/17/21] warfarin 2.5 mg PO SUTUTHSA 05/17/21 [History Last Taken 05/30/21] metoprolol tartrate 100 mg PO BID #60 tab 05/19/21 [Rx Last Taken 06/05/21] trazodone 100 mg PO QHS 05/31/21 [History Last Taken Unknown] ciprofloxacin HCl [Cipro] 500 mg PO BID #10 tab 06/05/21 [Rx Last Taken Unknown] Allergy/AdvReac Type Severity Reaction Status Date / Time No Known Allergies Allergy Verified 06/05/21 08:33 Family History Other Cancer Surgical History (Updated 05/31/21 @ 09:00 by Farida Downing) History of surgical amputation of finger Hx of colonoscopy with polypectomy Hx of prostate biopsy Hx of vasectomy Social History Smoking Status: Former smoker Vital Signs Vital Signs Vital Signs: 06/05/21 08:34 Temperature 97.2 F L Temperature Source Temporal Pulse Rate 47 L Respiratory Rate 18 Respiratory Pattern Normal Blood Pressure 109/54 L Blood Pressure Mean 72 Blood Pressure Source Monitor Blood Pressure Position Semi-Fowlers Blood Pressure Location Left Arm Pulse Ox 100 Oxygen Delivery Method Room Air Weight Weight: 78 kg Body Mass Index (BMI) 27.7 Results Lab / Micro Data Labs: Laboratory Results - last 24 hr 06/05/21 08:32: POC PT 14.0, INR 1.1 Micro: Microbiology 06/04/21 14:00 Interface Orders SARS-CoV-2 Antigen (Rapid) - Final
--- NOTE | 2021-06-05 12:01 | PCM.DC ---
Discharge Instructions Diet Discharge Diet: No restrictions Activity Discharge Activity: Return to Normal Activity and May Not Drive (while taking narcotic pain medications.) Dressing / Incision Call your doctor if you observe: Fever of 101 or Higher Follow Up Care Please Follow Up With: Martinez Luevano MD When: Call [phone] for an appointment Test Results: Test results from this visit will be discussed in further detail at your follow-up appointment, if applicable. Discharge Plan Admission Primary Reason for Your Visit: turp Attending Provider: Martinez Luevano Primary Care Provider: Iván Aponte Instructions Patient Instructions: STEPHEN Home Recovery Discharge Orders/Prescriptions Prescriptions: New ciprofloxacin HCl [Cipro] 500 mg tablet 500 mg PO BID Qty: 10 RF: 0 Continued multivitamin Tablet 1 tab PO DAILY RF: 0 metoprolol tartrate 100 mg Tablet 100 mg PO BID Qty: 60 RF: 0 trazodone 50 mg Tablet 100 mg PO QHS RF: 0 Held warfarin 5 mg tablet 5 mg PO MOWEFR RF: 0 Hold Instructions: Resume on 06/14/21. warfarin 2.5 mg Tablet 2.5 mg PO SUTUTHSA RF: 0 Hold Instructions: Resume on 06/14/21. Discontinued tamsulosin 0.4 mg capsule 0.4 mg PO QHS RF: 0 dutasteride 0.5 mg capsule 0.5 mg PO DAILY RF: 0 Referrals / Follow Up: Martinez Luevano MD [STAFF PHYSICIAN] - Iván Aponte MD [Primary Care Provider] - Disposition Disposition (needs filled in before D/C Order can be placed): Home, Self Care
--- NOTE | 2021-06-05 12:01 | PCM.OPRPT ---
Report of Operation Date of Procedure: 06/05/21 Pre-Operative Diagnosis: BPH with obstruction retention of urine Post-Operative Diagnosis: Same Surgery/Procedure Performed:: Transurethral section of prostate Description of Surgical Findings:: In the preoperative setting I discussed with the patient how the surgery would be done with expect afterwards. We discussed how a prostate resection is done and we discussed the risk of the surgery including, bleeding, infection, retrograde ejaculation, changes with ejaculation or intercourse,. We discussed the possibility that the resection of the prostate may not alleviate his urinary symptoms. We discussed the small risk of developing scar tissue along the urethral channel and strictures. We also discussed the chance of the prostate could grow back and he may need further surgery or treatment in the future for prostate problems. Patient was taken back to the operating room, timeout procedure was performed, he was identified and marked and placed on the operating room table. He underwent general anesthesia. He was placed in dorsolithotomy position. Penis and testicles were prepped and draped in usual sterile fashion. Went into the bladder using the visual obturator with a resectoscope. Once inside the bladder identified the right and left ureteral orifice. I then identified the prostate and the anatomy of the prostate. I marked out the area of the sphincter and the verumontanum was identified. I then proceeded with the prostate resection first resected the median lobe. And then resected the right lobe of the prostate. Then to resect the left lobe of the prostate. I then resected the apical tissue of the prostate. This was a complete resection of all obstructive tissue to improve voiding and relieve obstruction. I then made sure that there was no injury to the sphincter or the verumontanum was still intact. At the end of the resection all the chips were Ellik out of the bladder. I then identified the left and right ureteral orifice and these were confirmed to be in good position and effluxing and not injured. The resectoscope was removed, a 22 Beninese catheter was placed into the bladder on continuous irrigation. And the urine was fairly light pink color and draining normally. He was taken back to the PACU in good condition. CPT 88281 Surgeon: Martinez Luevano Type of Anesthesia: General Drains: 22fr [address] way Admit VTE Documentation VTE Present on Admission: No VTE Mechan Device Prophylaxis: SCD's VTE Pharm Prophylaxis ordered?: No
[2021-06-05] MEDS: 0.9% Saline Lock 10 ML Syringe IV (22:28)
[2021-06-05] MEDS: Metoprolol Tartrate 100 MG Tablet PO (22:30)
[2021-06-05] MEDS: traZODone 100 MG Tablet PO (22:30)
[2021-06-06 02:48] VITALS: BP 119/56; PULSE 57; RESP 16; TEMP 37.2; O2SAT 97
[2021-06-06 05:50] VITALS: BP 109/58; PULSE 59; RESP 16; TEMP 37.1; O2SAT 97
[2021-06-06] MEDS: Multivitamins,Therapeutic Tablet 1 TABLET PO (07:51)
[2021-06-06 09:21] VITALS: BP 118/64; PULSE 65; RESP 18; TEMP 37.2; O2SAT 100
[2021-06-06 09:23] VITALS: BP 118/64; PULSE 65
[2021-06-06] MEDS: Metoprolol Tartrate 100 MG Tablet PO (09:23)
== END 2021-06-06 13:00 | disposition home or self-care (01) ==
LOC: SDC 08:13 → AC 08:13 → MS3 12:40
PROVIDERS: PCP Family Medicine; Referring Provider Urology; Visit Provider Urology
PROC: (CPT 52601; principal; 2021-06-05 10:20)
DX: N40.1 Benign prostatic hyperplasia with lower urinary tract symptoms (principal); I48.0 Paroxysmal atrial fibrillation; C61 Malignant neoplasm of prostate; Z87.891 Personal history of nicotine dependence; R33.9 Retention of urine, unspecified; I10 Essential (primary) hypertension; Z79.01 Long term (current) use of anticoagulants
CPT/HCPCS: 52601; 36416; 85610; 87426; 88305; 88341; 88342; C9803; J7120; A4216; J2405

== ENCOUNTER 2021-06-28 14:33 | Outpatient (CLI) | payer MEDICARE, SELFPAY ==
--- NOTE | 2021-06-28 14:36 | CT_ITS ---
EXAM: CT ABDOMEN AND PELVIS WITH INTRAVENOUS CONTRAST : 1945 CLINICAL INDICATION: PROSTATE CA TECHNIQUE: Helically acquired images were obtained of the abdomen and pelvis with intravenous contrast. This CT exam was performed using one or more of the following dose reduction techniques: automated exposure control, adjustment of the mA and/or kV according to patient size, and/or use of iterative reconstruction technique. This report was created using WordRake report generation technology. CONTRAST: IV 100mL Isovue-300 COMPARISON: 05/16/2021 FINDINGS: LOWER THORAX: Unremarkable. Lung bases are clear. No cardiomegaly. No significant pericardial effusion. ABDOMEN: LIVER: Unremarkable. Homogeneous. No focal mass. GALLBLADDER AND BILE DUCTS: Unremarkable. No calcified gallstones. No gallbladder distention or wall edema. No intra- or extrahepatic biliary ductal dilation. PANCREAS: Unremarkable. No focal cystic or solid mass. SPLEEN: Unremarkable. Normal size without focal cystic or solid mass. ADRENALS: Unremarkable. No nodules. KIDNEYS AND URETERS: Unremarkable. Normal renal size and position. No hydronephrosis. STOMACH AND BOWEL: There is sigmoid diverticulosis with no evidence of diverticulitis. No stomach or bowel distention. PELVIS: APPENDIX: No evidence of acute appendicitis. BLADDER: There is thickening of the wall the urinary bladder which may be due to incomplete distention or cystitis. REPRODUCTIVE: Unremarkable as visualized. No mass. ABDOMEN and PELVIS: INTRAPERITONEAL SPACE: Unremarkable. No ascites or other fluid collection. No free air. BONES/JOINTS: Unremarkable. No suspicious lytic or blastic abnormality. SOFT TISSUES: Unremarkable. No discrete abdominal or pelvic wall hernia. VASCULATURE: Unremarkable. Abdominal aorta is non-dilated. LYMPH NODES: Unremarkable. No enlarged lymph nodes. CT/Abdomen/Pelvis WITH Contrast IMPRESSION: Thickening of the wall the urinary bladder which may be due to cystitis or incomplete distention. No other abnormalities are identified. Individualized dose optimization techniques were used for this CT. at 1756 Reported and signed by: Kole Russo MD Electronically Signed: Kole Russo MD at 17:55 EDT ,
[2021-06-28 15:06] LABS: CREATININE FINGERSTICK 0.8 mg/dL (0.70-1.30); EGFR FINGERSTICK > 60.0000 mL/min (>60)
== END 2021-06-28 23:59 | disposition home or self-care (01) ==
LOC: CT 14:34
PROVIDERS: PCP Family Medicine; Referring Provider Urology; Visit Provider Urology
DX: C61 Malignant neoplasm of prostate (principal)
CPT/HCPCS: 74177; Q9967

== ENCOUNTER 2021-07-02 07:41 | Outpatient (CLI) | payer MEDICARE, SELFPAY ==
--- NOTE | 2021-07-02 07:44 | NM_ITS ---
CLINICAL: 75-year-old male with history of carcinoma of the prostate. WHOLE BODY 99m Tc MDP RADIONUCLIDE BONE SCINTIGRAPHY COMPARISON: CT of the abdomen-pelvis report 06/28/2021 FINDINGS: Following the intravenous administration of 25.0 mCi of 99m Tc MDP, whole body bone images reveal: 1. Increased radiopharmaceutical concentration is defined in the upper cervical spine posteriorly on the left, the left elbow, wrist articulations bilaterally, acromioclavicular, glenohumeral and sternoclavicular compartments of both shoulders, knees bilaterally, the left midfoot. 2. The remaining skeletal structures are scintigraphically unremarkable with normal-appearing renal images and urinary bladder activity identified. NM/Bone Scan Whole Body IMPRESSION: 1. The increase in radiopharmaceutical concentration defined in the cervical spine, left elbow, both wrists, shoulders bilaterally, right and left knees and left midfoot is most consistent with degenerative arthritis. 2. There is no definitive typical scintigraphic evidence of diffuse axial skeletal metastatic disease on the current evaluation. Electronically Signed: Mark Sumner DO at 22:44 EDT ,
== END 2021-07-02 23:59 | disposition home or self-care (01) ==
LOC: NM 07:42
PROVIDERS: PCP Family Medicine; Referring Provider Urology; Visit Provider Urology
DX: C61 Malignant neoplasm of prostate (principal)
CPT/HCPCS: 78306; A9503

== ENCOUNTER 2021-10-23 09:26 | Emergency (ER) | payer MEDICARE, SELFPAY ==
[2021-10-23 09:27] VITALS: BP 125/96; PULSE 41; RESP 16; TEMP 36.3; O2SAT 99; BMI 27.9
--- NOTE | 2021-10-23 09:39 | EKG12_ITS ---
Test Reason : BRADYCARDIA Blood Pressure : / mmHG Vent. Rate : 040 BPM Atrial Rate : 040 BPM P-R Int : 150 ms QRS Dur : 126 ms QT Int : 510 ms P-R-T Axes : -05 013 037 degrees QTc Int : 415 ms Marked sinus bradycardia Right bundle branch block Abnormal ECG Confirmed by IRAJ ZUÑIGA, CHASTITY ([id number]), videotape editor ZAIN BEJARANO ([id number]) on 10/24/2021 9:23:36 AM Referred By: [email or web address] Confirmed By:CHASTITY GALO MD
--- NOTE | 2021-10-23 09:40 | EX.ED.DYSGE1 ---
HPI History of Present Illness Chief Complaint: Chest Other Detail of Chief Complaint: Bradycardia Informant: patient Narrative Narrative: Patient presents to the emergency department complaint of bradycardia. Patient was being seen in the office of his oncologist Dr. Yang who referred him to the emergency department for heart rate in the 40s and 30s. Patient states that his heart rate has been this low for several weeks. Patient has no complaints with this. He denies chest pain or shortness of breath or lightheadedness. Patient has history of A. fib and was admitted in June for heart rates of 150s. Patient had been on metoprolol 100 mg twice a day and then was decreased to 50 mg twice a day which she is currently on. Patient denies recent illness. Prior similar symptoms: Yes PFSH [facility] Medical History (Updated 10/23/21 @ 10:[address] Austni Dent, DO) Atrial fibrillation BPH with obstruction/lower urinary tract symptoms Cardiology follow-up encounter Former smoker Hepatitis History of atrial fibrillation History of echocardiogram History of edema HTN (hypertension) Indwelling urethral catheter present Leg cramps Paroxysmal atrial fibrillation with RVR Prostate disease Stuttering Tinnitus of left ear Urinary retention Wears dentures Wears glasses Home Medications multivitamin 1 tab PO DAILY supplement 05/17/21 [History Last Taken 05/17/21] metoprolol tartrate 50 mg tablet 50 mg PO BID #60 tabs 06/18/21 [Rx Last Taken Unknown] trazodone 50 mg tablet 50 mg PO QHS 06/18/21 [History Last Taken Unknown] warfarin 2.5 mg tablet 2.5 mg PO SUTUTH blood thinner 06/18/21 [History Last Taken Unknown] warfarin 5 mg tablet 5 mg PO MOWEFRSA blood thinner 06/18/21 [History Last Taken Unknown] melatonin 10 mg tablet 10 mg PO QHS 10/23/21 [History Last Taken Unknown] oxybutynin chloride 15 mg tablet,extended release 24 hr 1 tab PO DAILY 10/23/21 [History Last Taken Unknown] Allergy/AdvReac Type Severity Reaction Status Date / Time No Known Allergies Allergy Verified 10/23/21 09:27 Family History Other Cancer Surgical History History of surgical amputation of finger History of transurethral resection of prostate (06/05/21) Hx of colonoscopy with polypectomy Hx of prostate biopsy Hx of vasectomy Social History Smoking Status: Former smoker how long ago did patient quit smokin alcohol intake: never substance use type: does not use caffeine: Yes Type: carbonated beverages ROS ROS ED Review of Systems ROS Unobtainable: other Constitutional Constitutional ED: Reports lethargy; Denies chills, fever(s), sweats or weight loss Eyes Eyes: Denies blurry vision, change in vision or diplopia ENT ENT ED: Denies rhinorrhea or sore throat Cardiovascular Cardiovascular: Reports other Details: Bradycardia ; Denies chest pain, orthopnea or racing heartbeat Respiratory/Chest Respiratory/Chest: Reports dyspnea and dyspnea on exertion; Denies cough, orthopnea or sputum Gastrointestinal Gastrointestinal: Denies abdominal pain, diarrhea, nausea or vomiting Genitourinary Genitourinary ED: Denies dysuria, hematuria or urinary frequency Musculoskeletal Musculoskeletal: Denies arthralgias, back pain, myalgias or neck pain Integumentary Denies abscess, Abrasions or rash Neurologic Neurologic: Denies headache(s) or weakness Psychiatric Psychiatric: Denies anxiety, depression or suicidal thoughts Endocrine Endocrinology: Denies polydipsia, polyphagia or polyuria Hematologic/Lymphatic Hematologic/Lymphatic: Denies easy bleeding, easy bruising or lymphadenopathy Allergic/Immunologic Allergic/Immunologic ED: Denies mouth swelling, tongue swelling or urticaria EXAM Physical Exam Const Vital Signs: 10/23/21 09:27 10/23/21 09:37 10/23/21 10:25 Temperature 97.3 F L Temperature Source Temporal Pulse Rate 41 L 41 L Respiratory Rate 16 16 Respiratory Effort Normal Non-Labored Blood Pressure 125/96 H 117/65 Blood Pressure Mean 105 82 Pulse Ox 99 98 Oxygen Delivery Method Room Air Room Air Positive well nourished and well developed General Appearance ED: well developed and NAD HEENT Reports TM's clear and moist mucous membranes normocephalic and atraumatic; Negative for trauma or tenderness Tympanic Membrane ED: Yes TM's clear Eyes PERRL and EOMs intact bilaterally General Eye ED: Negative for pale conjunctiva or scleral icterus Neck no lymphadenopathy, supple and no JVD General: Negative for tenderness Chest Wall inspection of chest normal and palpation of chest normal Chest: Negative for tenderness Resp normal respiratory effort and clear to auscultation bilaterally Effort and Inspection: Negative for respiratory distress or pain with movement Auscultation: Negative for rhonchi, wheezes or diminished lung sounds Cardio regular rhythm, S1 normal heart sound, S2 normal heart sound and no murmurs Rhythm: abnormal rhythm other (Bradycardia with heart rate in the 40s) Peripheral Pulses: pulses 2+ throughout GI normal to inspection, nondistended, normoactive bowel sounds, soft to palpation, non-tender, non-distended and no masses Back/Spine no CVA tenderness and no thoracic nor lumbar tenderness Extremity normal to inspection General Extremety ED: Negative for edema General Extremity: Negative for edema Neuro oriented x3, CN's II-XII intact bilaterally, no sensory deficits noted and gait normal Sensorium / Orientation: awake, alert, oriented to person, oriented to place and oriented to time Motor Exam: strength 5/5 throughout and strength abnormal Psych mental status grossly normal Skin no rashes or lesions noted and no wounds MDM MDM MDM Narrative Medical decision making narrative: Patient is asymptomatic with a sinus bradycardia. I discussed case with his senior quality engineer Dr. Nimesh Ledezma who did not want a make any changes in his beta-luis at this time as he is asymptomatic. I was asked to try to get a Holter monitor for the patient. Dr. Ledezma's office will also contact him regarding changes to his Coumadin dosing. Lab Data Attestation: I reviewed the patient's lab results. Labs: Laboratory Results - last 24 hr 10/23/21 10/23/21 10/23/21 09:59 09:59 09:59 WBC 3.4 L RBC 4.16 L Hgb 12.3 L Hct 37.3 L MCV 89.7 MCH 29.6 MCHC 33.0 RDW Std Deviation 44.2 H RDW Coeff of Vishal 13.6 Plt Count 142 L MPV 10.4 Immature Gran % (Auto) 0.300 Neut % (Auto) 69.1 Lymph % (Auto) 14.0 L [place] % (Auto) 13.1 H Eos % (Auto) 2.9 Baso % (Auto) 0.6 Absolute Neuts (auto) 2.4 Absolute Lymphs (auto) 0.48 L Nucleated RBC % 0 PT 16.6 H INR 1.4 Sodium 138 Potassium 4.4 Chloride 108 H Carbon Dioxide 28.0 Anion Gap 2 L BUN 18 Creatinine 0.85 Estim Creat Clear Calc 67.76 Est GFR (MDRD) Af Amer 113 Est GFR (MDRD) Non-Af 94 BUN/Creatinine Ratio 21.2 H Glucose 94 Calcium 8.7 Magnesium 2.2 EKG Initial EKG: Attestation: I personally reviewed and interpreted this EKG as follows: Comments: Sinus bradycardia with a rate of 40 bpm with a right bundle branch block Discharge Plan Triage Chief Complaint: Chest Other Other Complaint: General Illness ED Provider: Austin Dent Dx/Rx/DC Orders Clinical Impression: Bradycardia Instructions: ED Bradycardia Prescriptions: No Action metoprolol tartrate 50 mg tablet 50 mg PO BID Qty: 60 11RF warfarin 5 mg tablet 5 mg PO MOWEFRSA Hold Instructions: Resume on 06/14/21. Rx Instructions: Managed by [facility] multivitamin Tablet 1 tab PO DAILY warfarin 2.5 mg tablet 2.5 mg PO SUTUTH Hold Instructions: Resume on 06/14/21. Rx Instructions: Managed by [facility] trazodone 50 mg tablet 50 mg PO QHS oxybutynin chloride 15 mg tablet extended release 24hr 1 tab PO DAILY melatonin 10 mg Tablet 10 mg PO QHS Primary Care Provider: Iávn Aponte Referrals: Nimesh Ledezma MD [STAFF PHYSICIAN] - 3-5 Days Iván Aponte MD [Primary Care Provider] - Disposition Disposition: Home, Self Care
[2021-10-23 10:07] LABS: Absolute Lymphocyte Count 0.48 X10^3/uL (0.83-4.51); Absolute Neutrophil Count 2.4 X10^3/uL (2.0-7.7); Basophil# 0.02 X10^3/uL; Basophil% 0.6 % (0-1); Eosinophils% 2.9 % (0-5); Hematocrit 37.3 % (40-54); Hemoglobin 12.3 g/dL (13.0-16.5); Lymphocyte # 0.48 X10^3/ul (0.83-4.51); Mean Corpuscular Hgb 29.6 pg (27.0-32.0); Mean Corpuscular Volume 89.7 fL (80-94); Mean Platelet Vol. 10.4 fl (6.2-12.0); Monocyte# 0.45 X10^3/uL; Monocyte% 13.1 % (0-10); NRBC Flagged by Analyzer 0 % (0-5); Neutrophil # 2.37 X10^3/uL (2.7-7.7); Neutrophil % 69.1 % (47-70); POSITIVE DIFFERENTIAL YES; Platelet Count 142 K/mm3 (150-450); RBC Distribution Width CV 13.6 % (11.6-14.6); RBC Distribution Width SD 44.2 fl (35.1-43.9); Red Blood Count 4.16 M/mm3 (4.6-6.2); White Blood Count 3.4 K/mm3 (4.4-11.0)
[2021-10-23 10:09] LABS: Differential Indicated SCAN CRITERIA MET
[2021-10-23 10:19] LABS: Anion Gap 2 (5-15); BUN 18 mg/dL (7-18); BUN/Creat Ratio 21.2 RATIO (10-20); Calcium,Total 8.7 mg/dL (8.5-10.1); Chloride 108 mmol/L (98-107); Creatinine, Serum 0.85 mg/dL (0.70-1.30); EST Glomerular Filtration Rate 94 mL/min (>60); Est Glom Filt Rate - Afr Amer 113 mL/min (>60); Estimated Creatinine Clearance 67.76 ml/min; Glucose 94 mg/dL (74-106); Magnesium 2.2 mg/dL (1.6-2.6); Potassium 4.4 mmol/L (3.5-5.1); Sodium Level 138 mmol/L (136-145)
[2021-10-23 10:22] LABS: International Normalized Ratio 1.4; Prothrombin Time (Protime)PT. 16.6 SECONDS (11.7-14.9)
[2021-10-23 10:25] VITALS: BP 117/65; PULSE 41; RESP 16; O2SAT 98
[2021-10-24 12:21] LABS: Pathologist Review Reviewed
== END 2021-10-23 11:02 | disposition home or self-care (01) ==
PROVIDERS: Emergency Provider Emergency Medicine; PCP Family Medicine; Visit Provider Emergency Medicine
DX: R00.1 Bradycardia, unspecified (principal); I48.91 Unspecified atrial fibrillation; I10 Essential (primary) hypertension; Z87.891 Personal history of nicotine dependence
CPT/HCPCS: 80048; 83735; 85025; 85610; 93005; 93225; 93226; 99284; A4216

== ENCOUNTER → 2021-10-23 | Outpatient (CLI) | payer MEDICARE, SELFPAY | END | disposition home or self-care (01) | PROVIDERS: PCP Family Medicine; Visit Provider Emergency Medicine | DX: R00.1 Bradycardia, unspecified (principal) | CPT/HCPCS: 93225; 93226 ==

== ENCOUNTER → 2021-12-27 | Outpatient (CLI) | payer MEDICARE, SELFPAY ==
[2021-12-27 12:49] LABS: International Normalized Ratio 1.4; Prothrombin Time (Protime)PT. 16.7 SECONDS (11.7-14.9)
== END | disposition home or self-care (01) ==
LOC: LABSPEC 12:28
PROVIDERS: PCP Family Medicine; Referring Provider Family Medicine; Visit Provider Family Medicine
DX: I48.91 Unspecified atrial fibrillation (principal)
CPT/HCPCS: 85610

== ENCOUNTER 2024-10-12 11:40 | Day surgery (SDC) | payer MEDICARE, OTHER, SELFPAY ==
--- NOTE | 2024-10-10 18:37 | PAT.ANESEVAL ---
Pre-Assessment Diagnosis/Proposed Procedure Planned Operative Procedure(s): CYSTO WITH DILATION INJECTION RETROGRADES Anesthesia History Anesthesia History - gutter mouth cutter: Anesthesia History - gutter mouth cutter Hx Hospitalization Yes: 08/22/24 CARDIAC 10/07/24 13:01 ABLATION Any Problems With Anesthesia No 10/07/24 13:01 Cholinesterase deficiency No 10/07/24 13:01 You/Your Family Experience No 10/07/24 13:01 fever (hyperthermia) with Relationship Recent Exposure to Contagious No 06/05/21 08:34 Disease Does patient have nerve No 10/07/24 13:01 stimulator Patient instructed to have device shut off --Does patient have Pacemaker or ICD? When Was Last Pacemaker Check QUESTION #4 FULL TEXT: You/Your Family Experience fever (hyperthermia) with Anesthesia Last Oral Intake Last Oral intake: Last Oral Intake NPO since Meds taken in AM with sips of water? Meds patient instructed to take am of surgery PONV PONV - gutter mouth cutter: PONV - gutter mouth cutter Female No 10/07/24 13:01 HX of Motion Sickness No 10/07/24 13:01 HX of N/V After Surgery No 10/07/24 13:01 Non-Smoker Yes 10/07/24 13:01 Duration of Surgery greater No 10/07/24 13:01 than 60 minutes Number of Risk Factors 1 10/07/24 13:01 PONV Score Low Risk 10/07/24 13:01 Height & Weight Height & Weight: Anesthesia: Height & Weight Height 5 ft 6 in 10/23/22 07:31 Respiratory Assessment Respiratory Assessment - gutter mouth cutter: Respiratory Tract Infection Hx - gutter mouth cutter Hx Respiratory Tract Infection No 10/07/24 13:01 STOP Sleep Apnea STOP Sleep Apnea - gutter mouth cutter: STOP Sleep Apnea - gutter mouth cutter Hx Hypertension No 10/07/24 13:01 Hx Sleep Apnea No 10/07/24 13:01 CPAP BIPAP Do you snore loudly (louder No 10/07/24 13:01 than talking or can be heard Do you often feel tired/ No 10/07/24 13:01 fatigued/ sleepy during daytime? Has anyone observed you stop No 10/07/24 13:01 breathing during sleep? STOP Results Negative 10/07/24 13:01 QUESTION #5 FULL TEXT : Do you snore loudly (louder than talking or can be heard through closed doors)? 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 Specify any problems Hx of Preganancy in last 3 N/A 10/07/24 13:01 Months Nurse Filling Out Transfusion DSCHRIBER 10/07/24 13:01 & Questions: Date: 10/07/24 10/07/24 13:01 Time: 13:03 10/07/24 13:01 Patient unable to answer at this time (ie. 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 Hepatitis Former smoker Home Medications ?Medication ?Instructions ?Recorded ?Last Taken ?Type trazodone 50 mg tablet 50 mg PO QHS 06/18/21 Unknown History melatonin 10 mg tablet 10 mg PO QHS 10/23/21 Unknown History oxybutynin chloride 15 mg 1 tab PO DAILY 10/23/21 Unknown History tablet,extended release 24 hr metoprolol tartrate 50 mg tablet 25 mg (1/2 x 50 mg) PO BID #60 tabs 12/13/21 Unknown Rx warfarin 5 mg tablet 5 mg PO SUMOTUWETHFRSA blood 12/13/21 10/07/24 History thinner aspirin 81 mg tablet,delayed 81 mg PO DAILY 10/07/24 10/07/24 History release (Adult Aspirin Regimen) calcium 600 mg (as 1 cap PO BID 10/07/24 Unknown History carbonate)-vitamin D3 5 mcg (200 unit) capsule (Calcium 600 + D(3)) magnesium glycinate 100 mg (as 200 mg PO BID 10/07/24 Unknown History glycinate) tablet multivitamin (Daily Multi-Vitamin 1 tab PO DAILY 10/07/24 Unknown History tablet) Allergy/AdvReac Type Severity Reaction Status Date / Time adhesive tape (plastic tape) AdvReac Intermediate Rash Verified 10/07/24 12:51 latex AdvReac Intermediate Rash Verified 10/07/24 12:51 Family History Other Cancer Surgical History (Updated 10/07/24 @ 13:12 by Farida Downing) History of cardiac ablation for atrial fibrillation History of transurethral resection of prostate (06/05/21) Hx of prostate biopsy History of surgical amputation of finger Hx of vasectomy Hx of colonoscopy with polypectomy Social History Smoking Status: Former smoker how long ago did patient quit smokin alcohol intake: never substance use type: does not use caffeine: Yes Type: carbonated beverages Audit: Pertinent Findings Pertinent Findings EKG Perinent findings: August 24, 2024. Normal sinus rhythm. Complete right bundle branch block. October 23, 2021. Marked sinus bradycardia-40 bpm. Right bundle branch block. Stress test pertinent findings: January 01, 2024. SPECT perfusion study is normal. No evidence for ischemia. No infarct. Left ventricular ejection fraction is 64%. Echo (EF%) pertinent findings: 05/18/2021. EF of 55%. No aortic stenosis noted. Consult pertinent findings: October 23, 2022. Dr. Ledezma. 1. Atrial fibrillation?chronic-patient currently in regular rhythm on exam. Most recent echo as above. Continue metoprolol and warfarin. March 30, 2024. Dr. Pulliam?cardiology. Patient is stable awaiting further treatment for his atrial fibrillation. No changes to cardiac management. Additional pertinent findings: Holter monitor. October 23, 2021. Average beat with sinus rhythm and sinus bradycardia. 19 PVCs. Total of 127 PSVC's. No A-fib or flutter. No symptoms recorded in patient's diary. Recommendation Anesthesia Recommendation Anesthesia recommendation: OPTIMIZED for anesthesia
[2024-10-12] VITALS (8 sets, daily range): BP systolic 104–145; BP diastolic 52–74; PULSE 38–50; RESP 16–18; TEMP 36.1–36.4; O2SAT 98–100; BMI 30.9
[2024-10-12 12:15] LABS: INR Fingerstick 1.1
[2024-10-12] MEDS: Lactated Ringers 1,000 ML 15 ML IV (13:01)
--- NOTE | 2024-10-12 13:39 | PCM.PRE.AN2 ---
ASA Classification* ASA Classification ASA Classification: 3 Assessment & Plan Anesthesia* Anesthesia Assessment Anesthesia Assessment: Discussed sedation and/or anesthesia options, risks, benefits, and alternatives with patient/parents/legal guardian/POA. Questions invited. The patient/parents/legal guardian/POA seems to understand and agrees to proceed with anesthesia plan. Reviewed the physical assessment, medical history, allergy history and patient home medications list prior to surgery/procedure/anesthetic and documented any changes. Performed airway and anesthesia risk assessments. Anesthesia Type Anesthesia Type: MAC (Patient will have general as a backup plan.) History Source History Obtained from:: Patient and Chart Anesthesia Focused Assessment* Temperature: 97.2 F Pulse Rate: 44 Blood Pressure: 144/70 Respiratory Rate: 16 Pulse Ox: 100 Oxygen Delivery Method: Room Air Airway Assessment Mouth opens: >3 cm Mallampati Score: I Teeth Condition: Dentures (Patient has full upper and lower dentures. They will stay in.) Neck Range of motion (ROM): Full ROM Labs Anesthesia Preop lab: CBC WBC 3.4 K/mm3 (4.4-11.0) L 10/23/21 09:59 10/23/21 RBC 4.16 M/mm3 (4.6-6.2) L 10/23/21 09:59 10/23/21 Hgb 12.3 g/dL (13.0-16.5) L 10/23/21 09:59 10/23/21 Hct 37.3 % (40-54) L 10/23/21 09:59 10/23/21 Plt Count 142 K/mm3 (150-450) L 10/23/21 09:59 10/23/21 CHEMISTRY Potassium 4.4 mmol/L (3.5-5.1) 10/23/21 09:59 10/23/21 Sodium 138 mmol/L (136-145) 10/23/21 09:59 10/23/21 Magnesium 2.2 mg/dL (1.6-2.6) 10/23/21 09:59 10/23/21 BUN 18 mg/dL (7-18) 10/23/21 09:59 10/23/21 Creatinine 0.85 mg/dL (0.70-1.30) 10/23/21 09:59 10/23/21 Glucose 94 mg/dL (74-106) 10/23/21 09:59 10/23/21 COAG PT 16.7 SECONDS (11.7-14.9) H 12/27/21 11:15 12/27/21 Pre-Assessment Diagnosis/Proposed Procedure Planned Operative Procedure(s): CYSTO WITH DILATION INJECTION RETROGRADES Anesthesia History Anesthesia History - site safety coordinator: Anesthesia History - site safety coordinator Hx Hospitalization Yes: 08/22/24 CARDIAC 10/07/24 13:01 ABLATION Any Problems With Anesthesia No 10/07/24 13:01 Cholinesterase deficiency No 10/07/24 13:01 You/Your Family Experience No 10/07/24 13:01 fever (hyperthermia) with Relationship Recent Exposure to Contagious No 10/12/24 12:46 Disease Does patient have nerve No 10/07/24 13:01 stimulator Patient instructed to have device shut off --Does patient have Pacemaker No 10/12/24 12:46 or ICD? When Was Last Pacemaker Check QUESTION #4 FULL TEXT: You/Your Family Experience fever (hyperthermia) with Anesthesia Last Oral Intake Last Oral intake: Last Oral Intake NPO since 22:30 10/12/24 12:46 Meds taken in AM with sips of Yes 10/12/24 12:46 water? Meds patient instructed to METOPROLOL @ 0930 10/12/24 12:46 take am of surgery OXYBUTIN @0930 Any additional information?: Yes Meds taken in AM with sips of water?: Yes PONV PONV - site safety coordinator: PONV - site safety coordinator Female No 10/07/24 13:01 HX of Motion Sickness No 10/07/24 13:01 HX of N/V After Surgery No 10/07/24 13:01 Non-Smoker Yes 10/07/24 13:01 Duration of Surgery greater No 10/07/24 13:01 than 60 minutes Number of Risk Factors 1 10/07/24 13:01 PONV Score Low Risk 10/07/24 13:01 Height & Weight Height & Weight: Anesthesia: Height & Weight Height 5 ft 6.14 in 10/12/24 12:46 Weight: 87.4 kg 10/12/24 12:46 Body Mass Index (BMI) 30.9 10/12/24 12:46 Respiratory Assessment Respiratory Assessment - site safety coordinator: Respiratory Tract Infection Hx - site safety coordinator Hx Respiratory Tract Infection No 10/07/24 13:01 STOP Sleep Apnea STOP Sleep Apnea - site safety coordinator: STOP Sleep Apnea - site safety coordinator Hx Hypertension No 10/07/24 13:01 Hx Sleep Apnea No 10/07/24 13:01 CPAP BIPAP Do you snore loudly (louder No 10/07/24 13:01 than talking or can be heard Do you often feel tired/ No 10/07/24 13:01 fatigued/ sleepy during daytime? Has anyone observed you stop No 10/07/24 13:01 breathing during sleep? STOP Results Negative 10/07/24 13:01 QUESTION #5 FULL TEXT : Do you snore loudly (louder than talking or can be heard through closed doors)? 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 Specify any problems Hx of Preganancy in last 3 N/A 10/07/24 13:01 Months Nurse Filling Out Transfusion DSCHRIBER 10/07/24 13:01 & Questions: Date: 10/07/24 10/07/24 13:01 Time: 13:03 10/07/24 13:01 Patient unable to answer at this time (ie. confused, unrespo /Reproduction History /Reproductive History - site safety coordinator: /Reproductive Hx- site safety coordinator Hx Now Gestational Age (in weeks): EDC: Hx Hx Para Hx Section SAB No 10/07/24 13:01 Active Medications Active Medications: Current Medications Generic Name Dose Route Start Last Admin Trade Name January PRN Reason Stop Dose Admin Cefazolin Sodium 2 gm/ Sodium 110 mls @ 200 mls/hr 10/12/24 13:45 Chloride IV 10/12/24 14:17 INTRAOP ONE Lactated Ringer's 1,000 mls @ 15 mls/hr 10/12/24 12:45 10/12/24 13:01 IV 15 mls/hr .Q48H SHAWN Administration PFSH Medical History Cancer Depression Arthritis History of stress test Wears glasses Wears dentures Stuttering Prostate disease Leg cramps History of edema Cardiology follow-up encounter History of echocardiogram History of atrial fibrillation 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 Hepatitis Former smoker Home Medications ?Medication ?Instructions ?Recorded ?Last Taken ?Type trazodone 50 mg tablet 50 mg PO QHS 06/18/21 Unknown History melatonin 10 mg tablet 10 mg PO QHS 10/23/21 Unknown History oxybutynin chloride 15 mg 1 tab PO DAILY 10/23/21 10/12/24 09:30 History tablet,extended release 24 hr metoprolol tartrate 50 mg tablet 25 mg (1/2 x 50 mg) PO BID #60 tabs 12/13/21 10/12/24 09:30 Rx warfarin 5 mg tablet 5 mg PO SUMOTUWETHFRSA blood 12/13/21 10/07/24 History thinner aspirin 81 mg tablet,delayed 81 mg PO DAILY 10/07/24 10/07/24 History release (Adult Aspirin Regimen) calcium 600 mg (as 1 cap PO BID 10/07/24 Unknown History carbonate)-vitamin D3 5 mcg (200 unit) capsule (Calcium 600 + D(3)) magnesium glycinate 100 mg (as 200 mg PO BID 10/07/24 Unknown History glycinate) tablet multivitamin (Daily Multi-Vitamin 1 tab PO DAILY 10/07/24 Unknown History tablet) Allergy/AdvReac Type Severity Reaction Status Date / Time adhesive tape (plastic tape) AdvReac Intermediate Rash Verified 10/07/24 12:51 latex AdvReac Intermediate Rash Verified 10/07/24 12:51 Family History Other Cancer Surgical History History of cardiac ablation for atrial fibrillation History of transurethral resection of prostate (06/05/21) Hx of prostate biopsy History of surgical amputation of finger Hx of vasectomy Hx of colonoscopy with polypectomy Social History Smoking Status: Former smoker how long ago did patient quit smokin alcohol intake: never substance use type: does not use caffeine: Yes Type: carbonated beverages Review of Systems (Anesthesia) ROS Narrative System reviewed and no additional complaints, except as documented.
[2024-10-12] MEDS: Cefazolin 2 GM in 0.9% Normal Saline (100mL Bag) 100 ML IV (14:03)
--- NOTE | 2024-10-12 14:28 | HP.PCM_ITS ---
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 so we will do a cystoscopy dilation of the stricture and Walker placement today we were planning do a Botox injection but I can hold off until I understand the anatomy and diagnosis and we may do the Botox later in the office [facility] Medical History Cancer Depression Arthritis History of stress test Wears glasses Wears dentures Stuttering Prostate disease Leg cramps History of edema Cardiology follow-up encounter History of echocardiogram History of atrial fibrillation 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 Hepatitis Former smoker Home Medications ?Medication ?Instructions ?Recorded ?Last Taken ?Type trazodone 50 mg tablet 50 mg PO QHS 06/18/21 Unknow n History melatonin 10 mg tablet 10 mg PO QHS 10/23/21 Unknow n History oxybutynin chloride 15 mg 1 tab PO DAILY 10/23/2106/07 09:30 History tablet,extended release 24 hr metoprolol tartrate 50 mg tablet 25 mg (1/2 x 50 mg) P O BID #60 tabs 12/13/21 10/12/24 09:30 Rx warfarin 5 mg tablet 5 mg PO SUMOTUWETHFRSA blood 12/13/21 10/07/24 History thinner aspirin 81 mg tablet,delayed 81 mg PO DAILY 10/07/24 0 10/07/24 History release (Adult Aspirin Regimen) calcium 600 mg (as 1 cap PO BID 10/07/24 Unknow n History carbonate)-vitamin D3 5 mcg (200 unit) capsule (Calcium 600 + D(3)) magnesium glycinate 100 mg (as 200 mg PO BID 10/07/24 Unknown History glycinate) tablet multivitamin (Daily Multi-Vitamin 1 tab PO DAILY 10/07 Unknown History tablet) Allergy/AdvReac Type Severity Reaction Status Date / Time adhesive tape (plastic tape) AdvReac Intermediate Rash Verified 10/07/24 12:51 latex AdvReac Intermediate Rash Verified 10/07/24 12:51 Family History Other Cancer Surgical History History of cardiac ablation for atrial fibrillation History of transurethral resection of prostate (06/05/21) Hx of prostate biopsy History of surgical amputation of finger Hx of vasectomy Hx of colonoscopy with polypectomy Social History Smoking Status: Former smoker how long ago did patient quit smokin alcohol intake: never substance use type: does not use caffeine: Yes Type: carbonated beverages Vital Signs Vital Signs Vital Signs: 10/12/24 12:46 10/12/24 12:46 10/12/24 13:48 Temperature 97.2 F L 97.2 F L Temperature Source Temporal Pulse Rate 44 L 44 L Respiratory Rate 16 16 Respiratory Pattern Normal Blood Pressure 144/70 H 144/70 H Blood Pressure Mean 94 Blood Pressure Position Semi-Fowlers Blood Pressure Location Right Arm Pulse Ox 100 100 Oxygen Delivery Method Room Air Room Air Weight Weight: 87.4 kg Body Mass Index (BMI) 30.9 Results Lab / Micro Data Labs: Laboratory Results - last 24 hr 10/12/24 12:13: POC PT 13.3, INR 1.1
--- NOTE | 2024-10-12 14:28 | PCM.DC ---
Discharge Instructions Diet Discharge Diet: No restrictions DC O2, CPAP, BIPAP needs Home O2 Discharge instructions: No Dressing / Incision Discharge Activity: Return to Normal Activity and May Not Drive (while taking narcotic pain medications.) Dressing / Incision Call your doctor if you observe: Fever of 101 or Higher Catheter: Walker to leg bag and Walker to large bag Follow Up Care Please Follow Up With: Martinez Luevano MD When: Call [phone] for an appointment Test Results: Test results from this visit will be discussed in further detail at your follow-up appointment, if applicable. Discharge Plan Admission Primary Reason for Your Visit: urethral stricture Attending Provider: Martinez Luevano Primary Care Provider: Iván Aponte Instructions Print Language: Albanian Discharge Orders/Prescriptions Prescriptions: Continued metoprolol tartrate 50 mg tablet 25 mg PO BID Qty: 60 11RF warfarin 5 mg tablet 5 mg PO SUMOTUWETHFRSA Rx Instructions: Managed by [facility] trazodone 50 mg tablet 50 mg PO QHS oxybutynin chloride 15 mg tablet extended release 24hr 1 tab PO DAILY melatonin 10 mg Tablet 10 mg PO QHS aspirin [Adult Aspirin Regimen] 81 mg tablet,delayed release (DR/EC) 81 mg PO DAILY multivitamin [Daily Multi-Vitamin] Tablet 1 tab PO DAILY magnesium glycinate 100 mg tablet 200 mg PO BID calcium carbonate-vitamin D3 [Calcium 600 + D(3)] 600 mg-5 mcg (200 unit) capsule 1 cap PO BID Referrals / Follow Up: Martinez Luevano MD [Med Staff - Active Staff] - Iván Aponte MD [Primary Care Provider] - Disposition Disposition (needs filled in before D/C Order can be placed): Home, Self Care
--- NOTE | 2024-10-12 14:29 | OP.PCM_ITS ---
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 Post-Operative Diagnosis: Same Surgery/Procedure Performed: Cystoscopy, retrograde urethrogram, dilation of the membranous urethral stricture, complicated Walker placement kier tender: No Type of Anesthesia: General RN Documented Start/Stop Times: Operation Date: 10/12/24 13:45 Case Time Into Pre-Op 10/12/24 12:32 Anesthesia Start 10/12/24 14:03 Into Room 10/12/24 14:03 Procedure Start 10/12/24 14:16 Procedure End 10/12/24 14:26 Procedure Start Time: 14:16 Procedure Stop Time: 14:29 Select all DRAINS/GRAFTS/IMPLANTS that apply: Drains Drain details: 20 Kittitian ass[place]ibo[place] and gros ventre tribes tip catheter Estimated Blood Loss: None Specimen collected: No Description of surgery: This is a 79-year-old male who underwent radiation therapy for prostate cancer in the past he presented my office with significant obstruction from an enlarged prostate he underwent a TURP after this he since then has developed a stricture in the membranous urethra so today we can do a cystoscopy dilation of the urethral stricture placement of Walker catheter understands that the stricture can come back he can have recurrence of the stricture made to have the read dilated may have to manage his bladder with chronic intermittent catheterization we could discuss doing referral for reconstruction but with prior radiation the risk of failure is much higher so more conservative measures might be better also he might need Botox injection at some point. Today he was taken back to the operating room underwent anesthesia and first we put a assinibo[place] and gros ventre tribes tip catheter in the tip of the urethra pulled the urethra laterally we did a retrograde urethrogram he can see nice wide open urethra and then the bulbar urethra and then right at the membranous urethra was a really tight narrow area where the contrast went through into the bladder and the prostate significant stricture here we then put a wire through under fluoroscopic guidance and then over the wire we dilated the stricture from 12 Kittitian to 18 Kittitian and then I went into the bladder with a 21 Kittitian rigid cystourethroscope the entire length urethra was fine and went I was able to get through the stricture with the scope the prostate was well resected and open a little bit of mild regrowth and residual tissue in the lateral fuentes but fairly short prostate inside the bladder heavily trabeculated bladder certainly has a lot of trabeculations and thickness in the bladder may benefit from Botox in the future. I then left the wire in place and then over the wire I placed a 20 [place] ass[place] and gros ventre tribes tip catheter we should leave this in for about 3 weeks to let it heal up and can follow-up in my office in 3 weeks for catheter removal Surgical Findings: Dense stricture in the membranous urethra Complications Complications: No Admit VTE Documentation VTE Present on Admission: No VTE Mechan Device Prophylaxis: SCD's VTE Pharm Prophylaxis ordered?: No
--- NOTE | 2024-10-12 14:35 | PCM.POST.ANE ---
Anesthesia: Postop Eval I Current Vital Signs Temperature: 97.6 F Pulse Rate: 48 Blood Pressure: 108/52 Respiratory Rate: 16 Pulse Ox: 98 Assessment Airway patent: Yes Spontaneous unlabored respirations: Yes nausea: No Vomiting: No Anesthesia Complication: No Fluid Hydration Crystalloid volume administer (ml): 500 Total IV fluid infused: 500 Progress Note Anesthesia document: Postop Eval 1 completed: Yes
--- NOTE | 2024-10-12 21:08 | POSTOPAN2_ITS ---
Anesthesia Postop Eval I Sum Postop Eval Completion status Anesthesia document: Postop Eval 1 completed: Yes Anesthesia Postop Eval I Summary Anesthesia Postop Eval I Summary: Anesthesia Postop Eval I: Assessment Summary Airway patent Yes 10/12/24 14:35 [email or web address] Spontaneous unlabored Yes 10/12/24 14:35 WATCH [email or web address] respirations Mental status nausea No 10/12/24 14:35 [email or web address] Vomiting No 10/12/24 14:35 [email or web address] Anesthesia Postop Eval I: Fluid Summary Crystalloid volume administer 500 10/12/24 14:35 WATCH [email or web address] (ml) Colloids volume administered ( ml) Blood Product volume administered (ml) Total IV fluid infused 500 10/12/24 14:35 [email or web address] Anesthesia Postop Eval I: Summary Notes Anesthesia Complication No 10/12/24 14:35 [email or web address] Anesthesia Complication Comment: Post-operative progress note Anesthesia: Postop Eval II Evaluation Mental status: Awake and Calm Pain Level: 1 nausea: No Vomiting: No Complications Anesthesia Complication: No
--- NOTE | 2024-10-12 21:08 | PCM.POSTANE2 ---
Anesthesia Postop Eval I Sum Postop Eval Completion status Anesthesia document: Postop Eval 1 completed: Yes Anesthesia Postop Eval I Summary Anesthesia Postop Eval I Summary: Anesthesia Postop Eval I: Assessment Summary Airway patent Yes 10/12/24 14:35 [email or web address] Spontaneous unlabored Yes 10/12/24 14:35 [email or web address] respirations Mental status nausea No 10/12/24 14:35 [email or web address] Vomiting No 10/12/24 14:35 [email or web address] Anesthesia Postop Eval I: Fluid Summary Crystalloid volume administer 500 10/12/24 14:35 [email or web address] (ml) Colloids volume administered ( ml) Blood Product volume administered (ml) Total IV fluid infused 500 10/12/24 14:35 [email or web address] Anesthesia Postop Eval I: Summary Notes Anesthesia Complication No 10/12/24 14:35 [email or web address] Anesthesia Complication Comment: Post-operative progress note Anesthesia: Postop Eval II Evaluation Mental status: Awake and Calm Pain Level: 1 nausea: No Vomiting: No Complications Anesthesia Complication: No
== END 2024-10-12 16:15 | disposition home or self-care (01) ==
LOC: SDC 11:52 → AC 12:08
PROVIDERS: PCP Family Medicine; Referring Provider Urology; Visit Provider Urology
PROC: 0TJB8ZZ Inspection of Bladder, Via Natural or Artificial Opening Endoscopic (ICD-10-PCS; CPT 52000; principal; 2024-10-12 13:35)
DX: N35.012 Post-traumatic membranous urethral stricture (principal); I48.91 Unspecified atrial fibrillation; N40.1 Benign prostatic hyperplasia with lower urinary tract symptoms; N13.8 Other obstructive and reflux uropathy; Z92.3 Personal history of irradiation; Z79.01 Long term (current) use of anticoagulants; Z85.46 Personal history of malignant neoplasm of prostate; Z79.899 Other long term (current) drug therapy; Z87.891 Personal history of nicotine dependence
CPT/HCPCS: 52281; 36416; 76000; 85610; C1769

== ENCOUNTER 2024-11-03 10:22 | Inpatient (IN) | payer MEDICARE, OTHER, SELFPAY ==
[2024-11-03] VITALS (35 sets, daily range): BP systolic 106–146; BP diastolic 41–100; PULSE 65–150; RESP 12–232; TEMP 35.9–37; O2SAT 80–100; BMI 29.9; BMI 29.0
--- NOTE | 2024-11-03 10:26 | EKG12_ITS ---
Test Reason : Blood Pressure : */* mmHG Vent. Rate : 74 BPM Atrial Rate : 74 BPM P-R Int : 116 ms QRS Dur : 132 ms QT Int : 424 ms P-R-T Axes : 72 12 29 degrees QTcB Int : 470 ms Normal sinus rhythm Right bundle branch block Abnormal ECG Confirmed by AMADOU ZUÑIGA, ASHLEY ([id number]), editor continuity and script LAVERN MELENDEZ ([id number]) on 11/07/2024 9:03:07 AM Referred By: ILA Confirmed By: ASHLEY TOBAR MD
--- NOTE | 2024-11-03 10:31 | EDS_ITS ---
HPI History of Present Illness Chief Complaint: Abn Labs Detail of Chief Complaint: Symptomatic anemia with hemoglobin of 4 Informant: patient Onset/Context/Timing Onset: Days Context: Sudden Onset Timing: Continuous Quality: Hematuria Location: Status post TURP Current Severity: Mild Maximum Severity: Severe Worsened by: Coumadin, patient did not discontinue Relieved by: Not applicable Associated Symptoms Associated Symptoms: Orthostatic lightheadedness, dyspnea with minimal activity. He is dyspneic Narrative Narrative: Patient is a 79-year-old male who had obstruction requiring surgery by Dr. Luevano for urethral stricture October 12. Patient did not discontinue his Coumadin. He has not had a recent level. He was seen by Dr. Zhao Munoz this morning. He still had blood-tinged urine. The Walker was removed. He had outpatient labs performed that reveals a hemoglobin of 4 and hematocrit of 15.3. His H&H October 23 was 12.3 and 37.3. Patient does endorse dyspnea with minimal activity. Orthostatic light headedness with rising from sitting or supine position. Patient denies chest discomfort with activity. Patient states his stool is dark since resuming iron tablets. He has not taken any Pepto-Bismol or Kaopectate recently. He is on Coumadin because he had A-fib. A recent ablation. Monitor reveals a sinus rhythm in my opinion. Patient does not report bruising easily. He denies headache, visual, ocular auditory symptoms. 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 thinner Instructions: Resume on 10/26/24. aspirin 81 mg tablet,delayed 81 mg PO DAILY 10/07/24 0 10/07/24 History release (Adult Aspirin Regimen) calcium 600 mg (as 1 cap PO BID 10/07/24 Unknow n History carbonate)-vitamin D3 5 mcg (200 unit) capsule (Calcium 600 + D(3)) magnesium glycinate 100 mg (as 200 mg PO BID 10/07/24 Unknown History glycinate) tablet multivitamin (Daily Multi-Vitamin 1 tab PO DAILY 10/07 Unknown History tablet) Allergy/AdvReac Type Severity Reaction Status Date / Time adhesive tape (plastic tape) AdvReac Intermediate Rash Verified 11/03/24 10:22 latex AdvReac Intermediate Rash Verified 11/03/24 10:22 Family History Other Cancer Surgical History History of cardiac ablation for atrial fibrillation History of transurethral resection of prostate (06/05/21) Hx of prostate biopsy History of surgical amputation of finger Hx of vasectomy Hx of colonoscopy with polypectomy Social History Smoking Status: Former smoker how long ago did patient quit smokin alcohol intake: never substance use type: does not use caffeine: Yes Type: carbonated beverages ROS ROS ED Constitutional Constitutional ED: Denies chills, fever(s), subjective or sweats Eyes Eyes: Denies blurry vision or change in vision ENT ENT ED: Denies ear pain or rhinorrhea Cardiovascular Cardiovascular: Reports other Details: Orthostatic lightheadedness ; Denies chest pain, orthopnea, palpitations, paroxysmal nocturnal dyspnea or racing heartbeat Respiratory/Chest Respiratory/Chest: Reports dyspnea and dyspnea on exertion; Denies cough, orthopnea or paroxysmal nocturnal dyspnea Gastrointestinal Gastrointestinal: Denies abdominal pain, diarrhea, nausea or vomiting Genitourinary Genitourinary ED: Reports hematuria; Denies dysuria or urinary frequency Musculoskeletal Musculoskeletal: Denies arthralgias or myalgias Integumentary Denies rash Neurologic Neurologic: Denies headache(s) or weakness Hematologic/Lymphatic Hematologic/Lymphatic: Reports systems reviewed and no addt'l complaints, except as documented EXAM Physical Exam Const Vital Signs: 11/03/24 10:22 11/03/24 10:28 11/03/24 10:47 Temperature 96.6 F L Temperature Source Temporal Pulse Rate 79 150 H Pulse Rate [Lying] Pulse Rate [Sitting (for 1 minute prior to obtaining)] Pulse Rate [Standing (for 1 minute prior to obtaining)] Respiratory Rate 22 H 23 H Respiratory Effort Normal Respiratory Pattern Normal Blood Pressure 133/43 H 118/100 H Blood Pressure [Lying] Blood Pressure [Sitting (for 1 minute prior to obtaining)] Blood Pressure [Standing (for 1 minute prior to obtaining)] Blood Pressure Mean 73 107 Blood Pressure Mean [Lying] Blood Pressure Mean [Sitting (for 1 minute prior to obtaining)] Blood Pressure Mean [Standing (for 1 minute prior to obtaining)] Blood Pressure Source Blood Pressure Position Blood Pressure Location Pulse Ox 100 99 Oxygen Delivery Method 11/03/24 10:55 11/03/24 10:55 11/03/24 11:15 Temperature Temperature Source Pulse Rate 140 H 116 H Pulse Rate [Lying] 69 Pulse Rate [Sitting (for 1 minute prior to obtaining)] 71 Pulse Rate [Standing (for 1 minute prior to obtaining)] 90 Respiratory Rate 12 18 Respiratory Effort Respiratory Pattern Blood Pressure 118/54 L 117/46 L Blood Pressure [Lying] 118/54 L Blood Pressure [Sitting (for 1 minute prior to obtaining)] 114/41 L Blood Pressure [Standing (for 1 minute prior to obtaining)] 106/53 L Blood Pressure Mean 72 67 Blood Pressure Mean [Lying] 75 Blood Pressure Mean [Sitting (for 1 minute prior to obtaining)] 65 Blood Pressure Mean [Standing (for 1 minute prior to obtaining)] 70 Blood Pressure Source Blood Pressure Position Blood Pressure Location Pulse Ox 97 100 Oxygen Delivery Method 11/03/24 11:30 11/03/24 11:51 Temperature 98.6 F Temperature Source Oral Pulse Rate 68 67 Pulse Rate [Lying] Pulse Rate [Sitting (for 1 minute prior to obtaining)] Pulse Rate [Standing (for 1 minute prior to obtaining)] Respiratory Rate 16 18 Respiratory Effort Respiratory Pattern Blood Pressure 114/50 L 108/43 L Blood Pressure [Lying] Blood Pressure [Sitting (for 1 minute prior to obtaining)] Blood Pressure [Standing (for 1 minute prior to obtaining)] Blood Pressure Mean 69 64 Blood Pressure Mean [Lying] Blood Pressure Mean [Sitting (for 1 minute prior to obtaining)] Blood Pressure Mean [Standing (for 1 minute prior to obtaining)] Blood Pressure Source Monitor Blood Pressure Position Semi-Fowlers Blood Pressure Location Right Arm Pulse Ox 100 Oxygen Delivery Method Room Air Orthostatic vital signs were negative. Positive well nourished and well developed Constitutional Narrative: Vital signs unremarkable or tachypnea. Patient is very pale. General Appearance ED: well developed and pallor HEENT Reports moist mucous membranes HEENT Narrative: Head is atraumatic normocephalic. Ears normal. Nares patent. Posterior pharynx is normal. Eyes PERRL and EOMs intact bilaterally General Eye ED: Negative for pale conjunctiva or scleral icterus Neck no lymphadenopathy, supple and no JVD Chest Wall inspection of chest normal and palpation of chest normal Resp normal respiratory effort and clear to auscultation bilaterally Cardio regular rate, regular rhythm, S1 normal heart sound and S2 normal heart sound; Negative for no murmurs GI normal to inspection, nondistended, normoactive bowel sounds, non-tender, non-distended and no masses; Negative for hepatosplenomegaly Back/Spine no CVA tenderness Extremity normal to inspection Extremity Narrative: PT pulses palpable bilaterally. Neuro oriented x3 and CN's II-XII intact bilaterally Sensorium / Orientation: alert Psych mental status grossly normal Skin no rashes or lesions noted, no wounds and No skin turgor normal General Skin Exam: pallor; Negative for jaundice MDM MDM MDM Narrative Medical decision making narrative: Patient had outpatient labs performed. These were not repeated. Patient has symptomatic anemia due to hematuria secondary to noncompliance with instructions to discontinue Coumadin. Since he is on Coumadin we will obtain PT/INR. This can be held especially since he is in a sinus rhythm. Since he has dyspnea on exertion will obtain EKG to evaluate for any evidence of cardiac ischemia. He was typed and crossed for 4 units of blood. Patient was explained this benefits of blood transfusion. Will have nurse at attain consent for him to sign. History & Record Review Additional record(s) reviewed:: Prior outpatient record (Reviewed op note for TURP October.) Lab Data Attestation: I reviewed the patient's lab results. Lab results narrative: PT/INR is 26.7 and 2.4 respectively. Labs: Laboratory Results - last 24 hr 11/03/24 10:25 PT 26.7 H INR 2.4 Blood Type A POSITIVE Antibody Screen NEGATIVE Crossmatch See Detail EKG Initial EKG: Attestation: I personally reviewed and interpreted this EKG as follows: Interpretation: Sinus Rhythm (Rate is 74. Patient has right bundle branch block. FL interval is 116 ms. QS duration 132 ms. QT duration 424 ms. Pound is normal. There is no evidence of acute ischemia.) Prior: Unchanged (His heart rate on prior EKG was sinus bradycardia with a rate of 40) Management Discussion w/another healthcare provider: Hospitalist (Spoke with Dr. Iván Barba. Full admit PCU. He was informed that Dr. Luevano is going to put a Walker in.) and Media Marketing Manager (Spoke with Dr. Trever Brown regarding patient.) Treatment and Re-Evaluation :: Hospitalist was paged for symptomatic anemia since patient will require 4 units of blood. Discharge Plan Dx/Rx/DC Orders Clinical Impression: Gross hematuria, Symptomatic anemia, Signs and symptoms of anemia, Anticoagulant long-term use, Anticoagulant adverse reaction, Anemia requiring transfusions Disposition Disposition: Acute Care Hospital [facility]
[2024-11-03 10:51] LABS: Prothrombin Time (Protime)PT. 26.7 SECONDS (11.7-14.9)
--- NOTE | 2024-11-03 12:32 | CASEMGMT ---
Care Management Face to Face with patient for initial transition planning/care coordination assessment in the ED. This medical writer introduced self and role at [facility]. Patient alert and oriented. Patient willing to participate in assessment and is able to answer all questions appropriately. Care providers, pharmacy, and demographics verified. Admitting Diagnosis: symptomatic anemia Other diagnosis history: cardiac ablation for a-fib, cancer, prostate disease PCP: [facility] Specialists: Bassem, urology. Jabari, cardiology through [facility]. Jania, oncology. Preferred Pharmacy: I don't care -- [facility], [facility], or [facility] were ones he listed. Insurance: Medicare A B (primary). [employer] Medicare (secondary). Prescription Benefit: yes Living Will/HPOA: states Nataliya, ex , is HCPOA, but this is not on file here. LNOK: ex , Nataliya Tang (lives in [place]). Granddaughter, Yaz Shin. Living Arrangements: lives alone in a 1 story with a basement home. 3 steps to enter home, 12 steps to go to basement which he goes to often. Independent with all ADLs/IADLs prior to this. Transportation: drives self DME: none HHC: none SNF/Rehab: none Community Resources: none Patient goals: Patient wishes to discharge home, denies need for home health care at this time. Patient states being totally healthy until 74.5 years old. Patient denies any further needs or concerns at this time. Disposition Plan: admission to acute; RN CM/SW to follow for discharge planning needs that may arise. Claudia Carmichael, SHOE CASER, GRAPHIC DESIGNER
[2024-11-03] MEDS: Phytonadione (Vit K) 5 MG in 0.9% Normal Saline (50mL Bag) 50 ML 150 MG IV (17:57)
--- NOTE | 2024-11-03 20:40 | PCM.HP.STD ---
HPI - General General Date of Admission: 11/03/24 Date of Service: 11/03/24 Chief Complaint: Abnormal lab HPI Narrative YO IVY, is a 79 M who presents to the emergency room at [facility] due to abnormal lab work which was drawn this morning indicating a hemoglobin of 4.4. On October 12, patient underwent a cystoscopy, retrograde urethrogram, dilation of the membranous urethral stricture, and a complicated Walker placement. Patient was advised to stop his Coumadin but I urology but the patient elected to remain on Coumadin, in August of this year, patient underwent an ablation and a Watchman procedure at the [facility], his EP physician was Dr Femi Delaney, phone number [phone]. Since his procedure in early October, patient has been having hematuria, he went to Dr. Luevano's office today and lab was drawn indicating a very low hemoglobin and he was sent to the ER for evaluation. Lab was obtained-chemistry profile was abnormal for glucose of 133, otherwise it was completely normal. Patient was typed and crossed for 4 units of packed red blood cells and they were started in the emergency room. Patient was admitted to PCU for further care, I did talk with his EP physician at the [facility] [place] this afternoon, he advised stopping his Coumadin and placing him on 81 mg aspirin daily, he stated that they watchman was placed more than 45 days ago and that is the cutoff point to stop the Coumadin. Patient does need a DENIZ and he is scheduled to have one done in November according to the patient, at the [facility] [place]. Patient was given 5 mg of vitamin K IV, 81 mg aspirin daily will start tomorrow. Labs will be monitored, a Walker catheter was inserted in the ER by Dr. Luevano, patient does have gross hematuria. 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 Hepatitis Former smoker Home Medications ?Medication ?Instructions ?Recorded ?Last Taken ?Type trazodone 50 mg tablet 50 mg PO QHS sleep 06/18/21 11/02/24 History melatonin 10 mg tablet 10 mg PO QHS sleep 10/23/21 11/02/24 History oxybutynin chloride 15 mg 1 tab PO DAILY bladder 10/23/21 11/03/24 History tablet,extended release 24 hr metoprolol tartrate 50 mg tablet 25 mg (1/2 x 50 mg) PO BID blood 12/13/21 11/03/24 Rx pressure #60 tabs calcium 600 mg (as 1 cap PO BID supplement 10/07/24 11/03/24 History carbonate)-vitamin D3 5 mcg (200 unit) capsule (Calcium 600 + D(3)) magnesium glycinate 100 mg (as 200 mg PO BID supplement 10/07/24 11/03/24 History glycinate) tablet multivitamin (Daily Multi-Vitamin 1 tab PO DAILY vitamin 10/07/24 11/03/24 History tablet) Allergy/AdvReac Type Severity Reaction Status Date / Time adhesive tape (plastic tape) AdvReac Intermediate Rash Verified 11/03/24 10:22 latex AdvReac Intermediate Rash Verified 11/03/24 10:22 Family History Other Cancer Surgical History History of cardiac ablation for atrial fibrillation History of transurethral resection of prostate (06/05/21) Hx of prostate biopsy History of surgical amputation of finger Hx of vasectomy Hx of colonoscopy with polypectomy Social History Smoking Status: Former smoker how long ago did patient quit smokin alcohol intake: never substance use type: does not use caffeine: Yes Type: carbonated beverages ROS Constitutional Constitutional: Reports fatigue; Denies anorexia, change in weight, chills, fever(s), night sweats or weakness Eyes Eyes: Denies blurry vision, change in vision, discharge from eye(s) or eye pain Cardiovascular Cardiovascular: Denies chest pain, claudication, edema or palpitations Respiratory/Chest Respiratory/Chest: Denies cough, hemoptysis, shortness of breath at rest or shortness of breath with exertion Gastrointestinal Gastrointestinal: Denies abdominal pain, constipation, diarrhea, hematemesis, hematochezia, melena, nausea or vomiting Genitourinary Genitourinary: Denies dysuria, hematuria, urinary frequency, urinary hesitancy, urinary incontinence or urinary urgency Musculoskeletal Musculoskeletal: Denies back pain, joint pain, joint stiffness, joint swelling, myalgias or neck pain Neurologic Neurologic: Denies abnormal gait, abnormal speech, dizziness, focal weakness, headache(s), loss of vision, numbness, other visual disturbances, paresthesias, syncope or tingling Psychiatric Psychiatric: Denies anxiety, cognitive impairment, depression, irritability, mood swings or suicidal ideation Endocrine Endocrinology: Denies change in body appearance, cold intolerance, excessive sweating, heat intolerance, polydipsia or polyuria Hematologic/Lymphatic Hematologic/Lymphatic: Denies none, anemia, easy bleeding, easy bruising or lymphadenopathy Allergic/Immunologic Allergic/Immunologic: Denies rhinitis, urticaria, eczemia or asthma Vital Signs Vital Signs Vital Signs: 11/03/24 10:22 11/03/24 10:28 11/03/24 10:47 Temperature 96.6 F L Temperature Source Temporal Pulse Rate 79 150 H Pulse Rate [Lying] Pulse Rate [Sitting (for 1 minute prior to obtaining)] Pulse Rate [Standing (for 1 minute prior to obtaining)] Respiratory Rate 22 H 23 H Respiratory Effort Normal Respiratory Pattern Normal Blood Pressure 133/43 H 118/100 H Blood Pressure [Lying] Blood Pressure [Sitting (for 1 minute prior to obtaining)] Blood Pressure [Standing (for 1 minute prior to obtaining)] Blood Pressure Mean 73 107 Blood Pressure Mean [Lying] Blood Pressure Mean [Sitting (for 1 minute prior to obtaining)] Blood Pressure Mean [Standing (for 1 minute prior to obtaining)] Blood Pressure Source Blood Pressure Position Blood Pressure Location Pulse Ox 100 99 Oxygen Delivery Method 11/03/24 10:55 11/03/24 10:55 11/03/24 11:15 Temperature Temperature Source Pulse Rate 140 H 116 H Pulse Rate [Lying] 69 Pulse Rate [Sitting (for 1 minute prior to obtaining)] 71 Pulse Rate [Standing (for 1 minute prior to obtaining)] 90 Respiratory Rate 12 18 Respiratory Effort Respiratory Pattern Blood Pressure 118/54 L 117/46 L Blood Pressure [Lying] 118/54 L Blood Pressure [Sitting (for 1 minute prior to obtaining)] 114/41 L Blood Pressure [Standing (for 1 minute prior to obtaining)] 106/53 L Blood Pressure Mean 72 67 Blood Pressure Mean [Lying] 75 Blood Pressure Mean [Sitting (for 1 minute prior to obtaining)] 65 Blood Pressure Mean [Standing (for 1 minute prior to obtaining)] 70 Blood Pressure Source Blood Pressure Position Blood Pressure Location Pulse Ox 97 100 Oxygen Delivery Method 11/03/24 11:30 11/03/24 11:45 11/03/24 11:51 Temperature 98.6 F Temperature Source Oral Pulse Rate 68 67 67 Pulse Rate [Lying] Pulse Rate [Sitting (for 1 minute prior to obtaining)] Pulse Rate [Standing (for 1 minute prior to obtaining)] Respiratory Rate 16 17 18 Respiratory Effort Respiratory Pattern Blood Pressure 114/50 L 108/43 L 108/43 L Blood Pressure [Lying] Blood Pressure [Sitting (for 1 minute prior to obtaining)] Blood Pressure [Standing (for 1 minute prior to obtaining)] Blood Pressure Mean 69 62 64 Blood Pressure Mean [Lying] Blood Pressure Mean [Sitting (for 1 minute prior to obtaining)] Blood Pressure Mean [Standing (for 1 minute prior to obtaining)] Blood Pressure Source Monitor Blood Pressure Position Semi-Fowlers Blood Pressure Location Right Arm Pulse Ox 100 Oxygen Delivery Method Room Air 11/03/24 11:55 11/03/24 12:00 11/03/24 12:00 Temperature Temperature Source Pulse Rate 73 72 68 Pulse Rate [Lying] Pulse Rate [Sitting (for 1 minute prior to obtaining)] Pulse Rate [Standing (for 1 minute prior to obtaining)] Respiratory Rate 19 H 16 14 Respiratory Effort Respiratory Pattern Blood Pressure 124/48 H 125/65 H 133/55 H Blood Pressure [Lying] Blood Pressure [Sitting (for 1 minute prior to obtaining)] Blood Pressure [Standing (for 1 minute prior to obtaining)] Blood Pressure Mean 70 85 78 Blood Pressure Mean [Lying] Blood Pressure Mean [Sitting (for 1 minute prior to obtaining)] Blood Pressure Mean [Standing (for 1 minute prior to obtaining)] Blood Pressure Source Blood Pressure Position Blood Pressure Location Pulse Ox 80 100 99 Oxygen Delivery Method Room Air 11/03/24 12:06 11/03/24 12:06 11/03/24 12:06 Temperature 98.6 F 98.6 F Temperature Source Oral Oral Pulse Rate 66 72 65 Pulse Rate [Lying] Pulse Rate [Sitting (for 1 minute prior to obtaining)] Pulse Rate [Standing (for 1 minute prior to obtaining)] Respiratory Rate 14 16 15 Respiratory Effort Respiratory Pattern Blood Pressure 125/50 H 125/65 H 125/50 H Blood Pressure [Lying] Blood Pressure [Sitting (for 1 minute prior to obtaining)] Blood Pressure [Standing (for 1 minute prior to obtaining)] Blood Pressure Mean 75 85 72 Blood Pressure Mean [Lying] Blood Pressure Mean [Sitting (for 1 minute prior to obtaining)] Blood Pressure Mean [Standing (for 1 minute prior to obtaining)] Blood Pressure Source Monitor Blood Pressure Position Semi-Fowlers Blood Pressure Location Right Arm Pulse Ox 100 100 100 Oxygen Delivery Method Room Air Room Air 11/03/24 12:15 11/03/24 12:30 11/03/24 12:45 Temperature Temperature Source Pulse Rate 69 69 71 Pulse Rate [Lying] Pulse Rate [Sitting (for 1 minute prior to obtaining)] Pulse Rate [Standing (for 1 minute prior to obtaining)] Respiratory Rate 14 18 23 H Respiratory Effort Respiratory Pattern Blood Pressure 125/65 H 132/51 H 112/61 Blood Pressure [Lying] Blood Pressure [Sitting (for 1 minute prior to obtaining)] Blood Pressure [Standing (for 1 minute prior to obtaining)] Blood Pressure Mean 77 74 71 Blood Pressure Mean [Lying] Blood Pressure Mean [Sitting (for 1 minute prior to obtaining)] Blood Pressure Mean [Standing (for 1 minute prior to obtaining)] Blood Pressure Source Blood Pressure Position Blood Pressure Location Pulse Ox 100 100 Oxygen Delivery Method 11/03/24 12:46 11/03/24 13:00 11/03/24 13:06 Temperature 98.2 F 98.2 F Temperature Source Oral Pulse Rate 72 74 Pulse Rate [Lying] Pulse Rate [Sitting (for 1 minute prior to obtaining)] Pulse Rate [Standing (for 1 minute prior to obtaining)] Respiratory Rate 15 24 H 17 Respiratory Effort Respiratory Pattern Blood Pressure 112/61 139/50 H 139/50 H Blood Pressure [Lying] Blood Pressure [Sitting (for 1 minute prior to obtaining)] Blood Pressure [Standing (for 1 minute prior to obtaining)] Blood Pressure Mean 78 76 79 Blood Pressure Mean [Lying] Blood Pressure Mean [Sitting (for 1 minute prior to obtaining)] Blood Pressure Mean [Standing (for 1 minute prior to obtaining)] Blood Pressure Source Blood Pressure Position Blood Pressure Location Pulse Ox 100 100 100 Oxygen Delivery Method Room Air 11/03/24 14:00 11/03/24 14:06 11/03/24 14:10 Temperature 98.4 F 98.4 F Temperature Source Oral Oral Pulse Rate 73 73 Pulse Rate [Lying] Pulse Rate [Sitting (for 1 minute prior to obtaining)] Pulse Rate [Standing (for 1 minute prior to obtaining)] Respiratory Rate 16 16 Respiratory Effort Respiratory Pattern Blood Pressure 140/62 H 140/62 H Blood Pressure [Lying] Blood Pressure [Sitting (for 1 minute prior to obtaining)] Blood Pressure [Standing (for 1 minute prior to obtaining)] Blood Pressure Mean 88 88 Blood Pressure Mean [Lying] Blood Pressure Mean [Sitting (for 1 minute prior to obtaining)] Blood Pressure Mean [Standing (for 1 minute prior to obtaining)] Blood Pressure Source Blood Pressure Position Blood Pressure Location Pulse Ox 100 100 Oxygen Delivery Method Room Air Room Air 11/03/24 14:10 11/03/24 14:21 11/03/24 14:25 Temperature 98.5 F 98.3 F Temperature Source Oral Oral Pulse Rate 74 71 Pulse Rate [Lying] Pulse Rate [Sitting (for 1 minute prior to obtaining)] Pulse Rate [Standing (for 1 minute prior to obtaining)] Respiratory Rate 232 H 16 Respiratory Effort Respiratory Pattern Blood Pressure 133/55 H 138/60 H 133/55 H Blood Pressure [Lying] Blood Pressure [Sitting (for 1 minute prior to obtaining)] Blood Pressure [Standing (for 1 minute prior to obtaining)] Blood Pressure Mean 81 86 81 Blood Pressure Mean [Lying] Blood Pressure Mean [Sitting (for 1 minute prior to obtaining)] Blood Pressure Mean [Standing (for 1 minute prior to obtaining)] Blood Pressure Source Monitor Blood Pressure Position Semi-Fowlers Blood Pressure Location Left Arm Pulse Ox 100 100 Oxygen Delivery Method Room Air Room Air 11/03/24 15:16 11/03/24 15:17 11/03/24 16:08 Temperature 97.5 F L 97.5 F L 98.4 F Temperature Source Temporal Temporal Temporal Pulse Rate 69 71 80 Pulse Rate [Lying] Pulse Rate [Sitting (for 1 minute prior to obtaining)] Pulse Rate [Standing (for 1 minute prior to obtaining)] Respiratory Rate 16 16 16 Respiratory Effort Respiratory Pattern Blood Pressure 146/51 H 146/51 H 126/47 H Blood Pressure [Lying] Blood Pressure [Sitting (for 1 minute prior to obtaining)] Blood Pressure [Standing (for 1 minute prior to obtaining)] Blood Pressure Mean 82 82 73 Blood Pressure Mean [Lying] Blood Pressure Mean [Sitting (for 1 minute prior to obtaining)] Blood Pressure Mean [Standing (for 1 minute prior to obtaining)] Blood Pressure Source Monitor Monitor Monitor Blood Pressure Position Semi-Fowlers Semi-Fowlers Semi-Fowlers Blood Pressure Location Right Arm Right Arm Right Arm Pulse Ox 100 100 100 Oxygen Delivery Method Room Air Room Air Room Air 11/03/24 17:22 11/03/24 17:24 11/03/24 18:08 Temperature 97.5 F L 97.2 F L 98.1 F Temperature Source Temporal Temporal Temporal Pulse Rate 80 83 84 Pulse Rate [Lying] Pulse Rate [Sitting (for 1 minute prior to obtaining)] Pulse Rate [Standing (for 1 minute prior to obtaining)] Respiratory Rate 16 16 16 Respiratory Effort Respiratory Pattern Blood Pressure 113/69 127/47 H 131/45 H Blood Pressure [Lying] Blood Pressure [Sitting (for 1 minute prior to obtaining)] Blood Pressure [Standing (for 1 minute prior to obtaining)] Blood Pressure Mean 83 73 73 Blood Pressure Mean [Lying] Blood Pressure Mean [Sitting (for 1 minute prior to obtaining)] Blood Pressure Mean [Standing (for 1 minute prior to obtaining)] Blood Pressure Source Monitor Monitor Monitor Blood Pressure Position Semi-Fowlers Semi-Fowlers Semi-Fowlers Blood Pressure Location Right Arm Right Forearm Right Forearm Pulse Ox 100 100 100 Oxygen Delivery Method Room Air Room Air Room Air 11/03/24 19:34 Temperature 97.2 F L Temperature Source Temporal Pulse Rate 83 Pulse Rate [Lying] Pulse Rate [Sitting (for 1 minute prior to obtaining)] Pulse Rate [Standing (for 1 minute prior to obtaining)] Respiratory Rate 16 Respiratory Effort Respiratory Pattern Blood Pressure 127/47 H Blood Pressure [Lying] Blood Pressure [Sitting (for 1 minute prior to obtaining)] Blood Pressure [Standing (for 1 minute prior to obtaining)] Blood Pressure Mean 73 Blood Pressure Mean [Lying] Blood Pressure Mean [Sitting (for 1 minute prior to obtaining)] Blood Pressure Mean [Standing (for 1 minute prior to obtaining)] Blood Pressure Source Monitor Blood Pressure Position Blood Pressure Location Pulse Ox 100 Oxygen Delivery Method Room Air Weight Weight: 81.647 kg Body Mass Index (BMI) 29.0 Physical Exam Const alert, oriented x3 and no apparent distress Constitutional Narrative: Patient's complexion appears pale General Appearance: cooperative, well kempt and well developed Orientation / Consciousness: awake, oriented to person, oriented to place and oriented to time HEENT normocephalic, head/scalp atraumatic, hearing grossly normal bilaterally and moist oral mucous membranes Eyes PERRL, EOMs intact bilaterally and conjunctivae normal Neck supple, no JVD, thyroid normal and no carotid bruits General: trachea midline Resp normal respiratory effort, no retractions, no use of accessory muscles and clear to auscultation bilaterally Auscultation: Negative for rales, rhonchi or wheezes Cardio regular rate, regular rhythm, S1 normal heart sound, S2 normal heart sound, no murmurs, no rub and no gallops GI normal to inspection, nondistended, normoactive bowel sounds, soft to palpation, non-tender and non-distended Extremity no clubbing, cyanosis or edema Skin no rashes or lesions noted General Skin Exam: no breakdown Neuro oriented x3, CN's II-XII intact bilaterally, no focal motor deficits and no sensory deficits noted Sensorium / Orientation: awake and alert Speech: speech normal Psych affect normal Results Lab / Micro Data 11/05/24 05:18 Labs: Laboratory Results - last 24 hr 11/03/24 10:25: PT 26.7 H, INR 2.4, Blood Type A POSITIVE, Antibody Screen NEGATIVE, Crossmatch See Detail Assessment & Plan Assessment/Plan (1) Anemia requiring transfusions: PLAN: Plan 1. Acute anemia requiring blood transfusion-patient will be admitted to PCU, 4 units of packed red blood cells will be transfused, patient's labs will be monitored. Patient has a Walker catheter that exhibits gross hematuria #2 history of atrial fibrillation with recent ablation and insertion of Watchman device-again patient can come off his warfarin, I have given him vitamin K today and will recheck his INR tomorrow #3 gross hematuria-patient's Walker will stay in place, they will be flushed as necessary Total clinical time spent by myself addressing the patient's medical issues, reviewing all of his data, and collaborating with patient's care team: 75 minutes Charges/Coding Visit Charges Inpatient E&M: 36082 Init Hosp L3
[2024-11-04] VITALS (15 sets, daily range): BP systolic 120–157; BP diastolic 60–101; PULSE 61–82; RESP 15–16; TEMP 36.1–36.9; O2SAT 99–100
[2024-11-04 00:57] LABS: Hematocrit 25.0 % (40-54); Hemoglobin 8.3 g/dL (13.0-16.5)
[2024-11-04 06:47] LABS: Hematocrit 26.8 % (40-54); Hemoglobin 8.5 g/dL (13.0-16.5); Immature Granulocytes Count 0.070 X10^3/uL (0.0-0.0); Mean Corp Hgb Conc 31.7 g/dL (32-36); Mean Corpuscular Volume 84.5 fL (80-94); Mean Platelet Vol. 9.8 fl (6.2-12.0); NRBC Flagged by Analyzer 0.8 % (0-5); Platelet Count 320 K/mm3 (150-450); RBC Distribution Width CV 16.2 % (11.6-14.6); RBC Distribution Width SD 49.5 fl (35.1-43.9); Red Blood Count 3.17 M/mm3 (4.6-6.2); White Blood Count 9.9 K/mm3 (4.4-11.0)
[2024-11-04] MEDS: Aspirin E.C. 81 MG Tablet PO (07:58)
[2024-11-04] MEDS: Tolterodine Tartrate 4 MG CAP.SA PO (07:58)
--- NOTE | 2024-11-04 08:58 | CASEMGMT ---
WILSON MALONE NOTE:? Dx:?Acute anemia, hematuria. Strata:?2 6 click:?24 No therapy ordered.? No CM consult ordered.? Pt has a PCP listed in [facility]: Dr Aponte Medical record reviewed and patient evaluated for identification of discharge planning needs. Patient does not currently demonstrate a need for discharge planning by RN KIRA. CM will continue to be available for any discharge needs that may arise, and intervene as indicated or requested. Brigida BENEDICTN WILSON CM
[2024-11-04 11:58] LABS: Prothrombin Time (Protime)PT. 16.6 SECONDS (11.7-14.9)
[2024-11-04 15:53] LABS: Hematocrit 26.7 % (40-54); Hemoglobin 8.5 g/dL (13.0-16.5)
--- NOTE | 2024-11-04 19:05 | PN.HOSP_ITS ---
Reason for Visit Chief Complaint: Abnormal lab Subjective Subjective Patient was seen and examined today, he still exhibits gross hematuria, I talked with urology briefly today and they recommended just flushing the catheter intermittently. Patient's hemoglobin was rechecked this afternoon and it has not changed significantly from this morning's hemoglobin. Objective Data Objective Data Vital Signs: Vital Signs Temp Pulse Resp BP Pulse Ox O2 Del Method 98.2 F 73 16 145/60 H 99 Room Air 11/04/24 14:59 11/04/24 15:00 11/04/24 14:59 11/04/24 14:59 11/04/24 14:59 11/04/24 14:59 Oxygen Delivery Method Room Air Weight: 81.647 kg Body Mass Index (BMI) 29.0 Intake & Output: Intake and Output for Last 24 Hours 11/02/24 11/03/24 11/04/24 23:59 23:59 23:59 Intake Total 2030.5 / 2030.5 1050 / 1050 Output Total 350 / 350 1750 / 1750 Balance 1680.5 / 1680.5 -700 / -700 Lab / Micro Data 11/05/24 05:18 Labs: Laboratory Results - last 24 hr 11/03/24 10:25: Blood Type A POSITIVE, Antibody Screen NEGATIVE, Crossmatch See Detail 11/04/24 00:20: Hgb 8.3 L, Hct 25.0 L 11/04/24 05:45: WBC 9.9, RBC 3.17 L, Hgb 8.5 L, Hct 26.8 L, MCV 84.5, MCH 26.8 L , MCHC 31.7 L D, RDW Std Deviation 49.5 H, RDW Coeff of Vishal 16.2 H, Plt Count 320, MPV 9.8, Immature Gran % (Auto) 0.700, Neut % (Auto) 77.8 H, Lymph % (Auto) 10.3 L, [place] % (Auto) 8.9, Eos % (Auto) 1.9, Baso % (Auto) 0.4, Absolute Neuts (auto) 7.7, Absolute Lymphs (auto) 1.02, Nucleated RBC % 0.8 11/04/24 11:42: PT 16.6 H, INR 1.3 11/04/24 15:13: Hgb 8.5 L, Hct 26.7 L Physical Exam Const alert, oriented x3, no apparent distress and healthy appearing Constitutional Narrative: Zepeda in place with gross hematuria General Appearance: cooperative, well kempt and well developed Orientation / Consciousness: awake, oriented to person, oriented to place and oriented to time HEENT normocephalic and moist oral mucous membranes Eyes PERRL, EOMs intact bilaterally and conjunctivae normal Neck supple, no JVD, thyroid normal and no carotid bruits General: trachea midline Resp normal respiratory effort, no retractions, no use of accessory muscles and clear to auscultation bilaterally Auscultation: Negative for rales, rhonchi or wheezes Cardio regular rate, regular rhythm, S1 normal heart sound, S2 normal heart sound, no murmurs, no rub and no gallops GI normal to inspection, nondistended, normoactive bowel sounds, soft to palpation, non-tender and non-distended Extremity no clubbing, cyanosis or edema Skin no rashes or lesions noted General Skin Exam: no breakdown Neuro oriented x3, CN's II-XII intact bilaterally, moves all extremities, no focal motor deficits and no sensory deficits noted Sensorium / Orientation: awake and alert Speech: speech normal Psych affect normal Assessment & Plan Assessment/Plan (1) Anemia requiring transfusions: PLAN: Plan 1. Acute anemia requiring blood transfusion secondary to gross hematuria from use of Coumadin and recent ureteral stricture surgery-patient's hemoglobin appears to be stable at this time, will recheck CBC tomorrow #2 history of atrial fibrillation with recent ablation and insertion of Watchman device-again patient does not need Coumadin at this time, INR today was 1.3. #3 gross hematuria-secondary to urological surgery for urethral stricture and use of Coumadin-patient's Walker catheter remains at this time, he will be reevaluated in the morning Total clinical time spent by myself addressing the patient's medical issues, reviewing all of his data, and collaborating with patient's care team: 35 minutes Charges/Coding Visit Charges Inpatient E&M: 19983 Subs Hosp L2
[2024-11-05 05:46] LABS: Hematocrit 27.0 % (40-54); Hemoglobin 8.6 g/dL (13.0-16.5); Immature Granulocytes Count 0.040 X10^3/uL (0.0-0.0); Mean Corp Hgb Conc 31.9 g/dL (32-36); Mean Corpuscular Volume 83.9 fL (80-94); Mean Platelet Vol. 9.7 fl (6.2-12.0); NRBC Flagged by Analyzer 0.4 % (0-5); Platelet Count 309 K/mm3 (150-450); RBC Distribution Width CV 16.6 % (11.6-14.6); RBC Distribution Width SD 50.3 fl (35.1-43.9); Red Blood Count 3.22 M/mm3 (4.6-6.2); White Blood Count 7.9 K/mm3 (4.4-11.0)
[2024-11-05 08:03] VITALS: BP 135/72; PULSE 71; RESP 16; TEMP 36.7; O2SAT 99
[2024-11-05 08:08] VITALS: BP 135/72; PULSE 71
[2024-11-05] MEDS: Tolterodine Tartrate 4 MG CAP.SA PO (08:08)
[2024-11-05] MEDS: Aspirin E.C. 81 MG Tablet PO (08:08)
--- NOTE | 2024-11-05 13:13 | DCINST_ITS ---
Discharge Instructions DC O2, CPAP, BIPAP needs Home O2 Discharge instructions: No Dressing / Incision Discharge Activity: Return to Normal Activity Weight Bearing Status: Full weight bearing Follow Up Care Test Results: Test results from this visit will be discussed in further detail at your follow- up appointment, if applicable. Discharge Plan Admission Admit Date/Time: 11/03/24 11:59 Primary Reason for Your Visit: Symptomatic anemia, hematuria Attending Provider: Iván Pham Primary Care Provider: Iván Aponte Discharge Orders/Prescriptions Prescriptions: Continued metoprolol tartrate 50 mg tablet 25 mg PO BID Qty: 60 11RF trazodone 50 mg tablet 50 mg PO QHS oxybutynin chloride 15 mg tablet extended release 24hr 1 tab PO DAILY melatonin 10 mg Tablet 10 mg PO QHS multivitamin [Daily Multi-Vitamin] Tablet 1 tab PO DAILY magnesium glycinate 100 mg tablet 200 mg PO BID calcium carbonate-vitamin D3 [Calcium 600 + D(3)] 600 mg-5 mcg (200 unit) capsule 1 cap PO BID Discontinued warfarin 5 mg tablet 5 mg PO DAILY Rx Instructions: Managed by [facility] Referrals / Follow Up: Martinez Luevano MD [Med Staff - Active Staff] - See Referral Note (Call and schedule an appointment for Thursday or Thursday of next week) Iván Aponte MD [Primary Care Provider] - See Referral Note (At your next scheduled visit) Disposition Disposition (needs filled in before D/C Order can be placed): Home, Self Care
--- NOTE | 2024-11-05 13:18 | PCM.DC.SUM ---
Providers Date of Admission: 11/03/24 Date of Discharge: 11/05/24 Primary Care Physician: Dr. Iván Aponte MD Reason For Visit: ACUTE ANEMIA, HEMATURIA Diagnosis Discharge Diagnosis (1) Anemia requiring transfusions: Status: Acute Code(s): D64.9 - Anemia, unspecified Plan 1. Acute anemia requiring blood transfusion secondary to gross hematuria from use of Coumadin and recent ureteral stricture surgery-patient's hemoglobin appears to be stable at this time, will recheck CBC tomorrow #2 history of atrial fibrillation with recent ablation and insertion of Watchman device-again patient does not need Coumadin at this time, INR today was 1.3. #3 gross hematuria-secondary to urological surgery for urethral stricture and use of Coumadin-patient's Walker catheter remains at this time, he will be reevaluated in the morning Medications at Discharge Home Medications trazodone 50 mg tablet 50 mg PO QHS sleep 06/18/21 melatonin 10 mg tablet 10 mg PO QHS sleep 10/23/21 oxybutynin chloride 15 mg tablet,extended release 24 hr 1 tab PO DAILY bladder 10/23/21 metoprolol tartrate 50 mg tablet 25 mg (1/2 x 50 mg) PO BID blood pressure #60 tabs 12/13/21 calcium 600 mg (as carbonate)-vitamin D3 5 mcg (200 unit) capsule (Calcium 600 + D(3)) 1 cap PO BID supplement 10/07/24 magnesium glycinate 100 mg (as glycinate) tablet 200 mg PO BID supplement 10/07/24 multivitamin (Daily Multi-Vitamin tablet) 1 tab PO DAILY vitamin 10/07/24 Hospital Course Operations None Procedures Blood transfusion Summary of Care Provided Minutes Spent on Discharge: 31 Hospital Course: This 79-year-old white male was seen in the emergency room at [facility] after being sent in from his urologist office due to a low hemoglobin. Patient's hemoglobin was 4.4, patient had gross hematuria and his Walker catheter was changed by urology. Patient underwent a urological procedure earlier in October with treatment of the stricture in the urethra. Since that time he has had intermittent hematuria, he had been on Coumadin due to a recent history of a Watchman procedure and ablation. Patient did not want to stop his warfarin. Patient was admitted to PCU and transfused packed red blood cells, I talked with the patient's short story writer in [place] and he confirmed that the patient could go off Coumadin and so his Coumadin was stopped and he was given IV vitamin K. Within 48 hours the patient's hematuria cleared, on 11/05/2024, patient was seen and examined: On examination he appeared in good health and spirits. Vital signs as documented. Skin warm and dry and without overt rashes. Neck without JVD, neck was supple, trachea midline, thyroid was normal. Lungs clear bilaterally, normal air movement was noted. Heart exam notable for regular rhythm, normal sounds and absence of murmurs, rubs or gallops. Abdomen unremarkable and without evidence of organomegaly, masses, or abdominal aortic enlargement. Bowel sounds are present, abdomen is not distended. Extremities nonedematous, no cyanosis was noted, no clubbing was noted. Neuro: Cranial nerves II through XII are grossly intact, no focal motor deficits were noted, sensation to light touch and pinprick intact, motor exam 5/5 throughout. Psych: Patient is alert and oriented x3, he does not appear anxious or depressed, he does not appear agitated. I talked to his urologist on 11/05/2024 and confirmed that he wanted the patient to go home with a Walker catheter with follow-up the following week for removal of the catheter in the office. Patient was discharged in stable condition on 11/05/2024 Weight / BMI Weight Weight: 81.647 kg Body Mass Index (BMI) 29.0 ABG / Lab / Microbiology Data 11/05/24 05:18 Laboratory: Laboratory Results - last 24 hr 11/04/24 15:13: Hgb 8.5 L, Hct 26.7 L 11/05/24 05:18: WBC 7.9, RBC 3.22 L, Hgb 8.6 L, Hct 27.0 L, MCV 83.9, MCH 26.7 L, MCHC 31.9 L, RDW Std Deviation 50.3 H, RDW Coeff of Vishal 16.6 H, Plt Count 309, MPV 9.7, Immature Gran % (Auto) 0.500, Neut % (Auto) 75.7 H, Lymph % (Auto) 11.7 L, [place] % (Auto) 8.4, Eos % (Auto) 3.3, Baso % (Auto) 0.4, Absolute Neuts (auto) 6.0, Absolute Lymphs (auto) 0.92, Nucleated RBC % 0.4 D/C Instructions Weight Bearing Status: Full weight bearing DC O2, CPAP, BIPAP Needs Home O2 Discharge instructions: No Meaningful Use Info Meaningful Use Meaningful Use Diagnoses (Choose all that apply): None applicable Discharge Plan Admission Admit Date/Time: 11/03/24 11:59 Primary Reason for Your Visit: Symptomatic anemia, hematuria Attending Provider: Iván Pham Primary Care Provider: Iván Aponte Discharge Orders/Prescriptions Prescriptions: Continued metoprolol tartrate 50 mg tablet 25 mg PO BID Qty: 60 11RF trazodone 50 mg tablet 50 mg PO QHS oxybutynin chloride 15 mg tablet extended release 24hr 1 tab PO DAILY melatonin 10 mg Tablet 10 mg PO QHS multivitamin [Daily Multi-Vitamin] Tablet 1 tab PO DAILY magnesium glycinate 100 mg tablet 200 mg PO BID calcium carbonate-vitamin D3 [Calcium 600 + D(3)] 600 mg-5 mcg (200 unit) capsule 1 cap PO BID Discontinued warfarin 5 mg tablet 5 mg PO DAILY Rx Instructions: Managed by [facility] Referrals / Follow Up: Martinez Luevano MD [Med Staff - Active Staff] - See Referral Note (Call and schedule an appointment for Thursday or Thursday of next week) Iván Aponte MD [Primary Care Provider] - See Referral Note (At your next scheduled visit) Disposition Disposition (needs filled in before D/C Order can be placed): Home, Self Care Charges/Coding Visit Charges Inpatient E&M: 00080 Disch Hosp >30min
[2024-11-05 13:45] VITALS: BP 135/80; PULSE 68; O2SAT 98
== END 2024-11-05 13:50 | disposition home or self-care (01) | DRG 813 ==
LOC: ED 12:43 → PCU 13:50
PROVIDERS: Admitting Provider Internal Medicine; Emergency Provider Emergency Medicine; PCP Family Medicine; Visit Provider Internal Medicine
DX: D68.32 Hemorrhagic disorder due to extrinsic circulating anticoagulants (principal); D62 Acute posthemorrhagic anemia; Z87.891 Personal history of nicotine dependence; Z79.01 Long term (current) use of anticoagulants; R31.0 Gross hematuria; T45.515A Adverse effect of anticoagulants, initial encounter; Z86.79 Personal history of other diseases of the circulatory system; Z98.52 Vasectomy status
CPT/HCPCS: 36415; 80048; 85014; 85018; 85025; 85027; 85610; 86850; 86900; 86901; 93005; 99285; P9016; A4216

== ENCOUNTER → 2024-11-03 | Outpatient (CLI) | payer MEDICARE, OTHER, SELFPAY ==
[2024-11-03 10:08] LABS: Hematocrit 15.3 % (40-54); Mean Corp Hgb Conc 28.8 g/dL (32-36); Mean Corpuscular Volume 88.4 fL (80-94); Mean Platelet Vol. 9.8 fl (6.2-12.0); POSITIVE COUNT YES; Platelet Count 388 K/mm3 (150-450); RBC Distribution Width CV 15.1 % (11.6-14.6); RBC Distribution Width SD 48.2 fl (35.1-43.9); Red Blood Count 1.73 M/mm3 (4.6-6.2); White Blood Count 8.2 K/mm3 (4.4-11.0)
[2024-11-03 10:14] LABS: Hemoglobin 4.4 g/dL (13.0-16.5)
[2024-11-03 11:23] LABS: Anion Gap 11 (5-15); BUN 16 mg/dL (4-19); BUN/Creat Ratio 17.4 RATIO (10-20); Calcium,Total 8.1 mg/dL (7.6-11.0); Carbon Dioxide 22.5 mmol/L (21.0-32.0); Chloride 103 mmol/L (98-108); Glucose 133 mg/dL (70-99); Potassium 3.9 mmol/L (3.3-5.1)
== END | disposition home or self-care (01) ==
LOC: LAB 09:50
PROVIDERS: PCP Family Medicine; Referring Provider Urology; Visit Provider Urology
DX: R31.0 Gross hematuria (principal)
CPT/HCPCS: 36415; 80048; 85027

== ENCOUNTER 2024-12-22 10:14 | Emergency (ER) | payer MEDICARE, OTHER, SELFPAY ==
[2024-12-22 10:14] VITALS: BP 209/82; PULSE 96; RESP 17; TEMP 36.8; O2SAT 99; BMI 30.5
--- NOTE | 2024-12-22 10:35 | EX.ED.DYSGE1 ---
HPI History of Present Illness Chief Complaint: Hypertension Narrative Narrative: Patient is a 79-year-old male presenting to the emergency department for hypertension. Patient has a past medical history of prostate cancer and was at his oncology appointment when they noticed that his blood pressure was high and sent him here for evaluation. Patient reports that he is on metoprolol for his blood pressure, he did not take it this morning. Reports that he also has a past medical history of hematuria which is unchanged from baseline and he sees Dr. Luevano for this. States he had a urethral stricture operated on in October and since then has had intermittent gross hematuria with clots. He denies headache, vision changes, speech difficulty, chest pain, SOB, abdominal pain. 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 Hepatitis Former smoker Home Medications ?Medication ?Instructions ?Recorded ?Last Taken ?Type trazodone 50 mg tablet 50 mg PO QHS sleep 06/18/21 11/02/24 History melatonin 10 mg tablet 10 mg PO QHS sleep 10/23/21 11/02/24 History oxybutynin chloride 15 mg 1 tab PO DAILY bladder 10/23/21 11/03/24 History tablet,extended release 24 hr metoprolol tartrate 50 mg tablet 25 mg (1/2 x 50 mg) PO BID blood 12/13/21 11/03/24 Rx pressure #60 tabs calcium 600 mg (as 1 cap PO BID supplement 10/07/24 11/03/24 History carbonate)-vitamin D3 5 mcg (200 unit) capsule (Calcium 600 + D(3)) magnesium glycinate 100 mg (as 200 mg PO BID supplement 10/07/24 11/03/24 History glycinate) tablet multivitamin (Daily Multi-Vitamin 1 tab PO DAILY vitamin 10/07/24 11/03/24 History tablet) Allergy/AdvReac Type Severity Reaction Status Date / Time adhesive tape (plastic tape) AdvReac Intermediate Rash Verified 12/22/24 10:16 latex AdvReac Intermediate Rash Verified 12/22/24 10:16 Family History Other Cancer Surgical History History of cardiac ablation for atrial fibrillation History of transurethral resection of prostate (06/05/21) Hx of prostate biopsy History of surgical amputation of finger Hx of vasectomy Hx of colonoscopy with polypectomy Social History Smoking Status: Former smoker how long ago did patient quit smokin alcohol intake: never substance use type: does not use caffeine: Yes Type: carbonated beverages ROS ROS ED ROS Narrative see HPI EXAM Physical Exam Narrative Exam Narrative: Vital signs: Reviewed General: Alert and orientedx3. No acute distress HEENT: Head is normocephalic and atraumatic, sinuses nontender, pupils equal round and reactive. Nares are patent. Oropharynx and throat exams normal. Neck: Supple without lymphadenopathy nontender Cardiovascular: Regular rate and rhythm, no murmurs. No rubs or gallops. Normal S1 and S2 Respiratory: Clear to auscultation bilaterally. No wheezes, rales, rhonchi Abdominal: Soft and nontender. Normal bowel sounds. No guarding or rebound. Nonsurgical abdomen Extremities: No tenderness. No bruising. Normal range of motion. Normal sensation. Skin: No rash or redness. Neurological: Cranial nerves II through XII are grossly intact. Normal strength and sensation. Normal cerebellar function The rest of the physical exam is unremarkable Const Vital Signs: 12/22/24 10:14 12/22/24 10:56 12/22/24 12:14 Temperature 98.2 F Temperature Source Oral Pulse Rate 96 70 Respiratory Rate 17 20 H Respiratory Pattern Normal Blood Pressure 209/82 H 121/54 H Blood Pressure Mean 124 76 Pulse Ox 99 98 Oxygen Delivery Method Room Air Room Air 12/22/24 14:00 Temperature Temperature Source Pulse Rate 70 Respiratory Rate 18 Respiratory Pattern Blood Pressure 139/66 H Blood Pressure Mean 90 Pulse Ox 99 Oxygen Delivery Method Room Air NIHSS NIHSS Initial: 1a Level of Consciousness: 0 1b LOC Questions (Score 2 if aphasic/stupor): 0 1c LOC Commands (Only score 1st attempt): 0 2 Best Gaze (If aphasic, use reflexive mvmts.): 0 3 Visual: 0 4 Facial Palsy: 0 5 Motor Arm Right (UN = amputation/fusion): 0 5 Motor Arm Left: 0 6 Motor Leg Right: 0 6 Motor Leg Left: 0 7 Limb ataxia (Only + if out of proportion): 0 8 Sensory (Aphasia/stupor=0 or 1, coma=2): 0 9 Best Language: 0 10 Dysarthria (mute, coma=2, intubated=UN): 0 11 Extinction and Inattention (only scored if +): 0 Total Score: 0 MDM MDM MDM Narrative Medical decision making narrative: Patient is a 79-year-old male presenting to the emergency department for high blood pressure. Patient was seen and examined. He arrives with a BP of 209/82. On my evaluation his systolic is 222. Given the significantly elevated systolic, patient given 20 mg IV labetalol and workup was initiated to rule out evidence of end organ damage. Again, he did not take his PO metoprolol this morning. EKG shows normal sinus rhythm with a right bundle branch block. No ischemic changes. No dysrhythmia. Looks similar to previous on 11/03. CBC with no leukocytosis and hemoglobin of 10.8 which appears better than his baseline. CMP with no evidence of liver or kidney injury. Initial troponin of 10, reflex up to 27. Third troponin pending. Chest x-ray reviewed by myself, no evidence of pulmonary edema. Radiology read with no acute radiographic abnormalities. CT brain shows no acute findings. Patient did have gross hematuria while here and then ended up having urinary retention secondary to this, nursing staff did place a Iglesias catheter. I did speak to the patient's urologist, Dr. Luevano, to notify him patient is still having gross hematuria so iglesias was placed here in the ED and will be kept in until he follows up with him. Given the elevated troponins with delta change greater than 6 and inital BP, warrants admission for hypertensive emergency. Hospitalist paged for discussion. Clinical impression: Hypertensive emergency gross hematuria Lab Data Attestation: I reviewed the patient's lab results. Labs: Laboratory Results - last 24 hr 12/22/24 12/22/24 10:51 12:40 WBC 8.5 RBC 4.36 L Hgb 10.8 L Hct 35.5 L MCV 81.4 MCH 24.8 L MCHC 30.4 L RDW Std Deviation 50.4 H RDW Coeff of Vishal 17.2 H Plt Count 341 MPV 10.8 Immature Gran % (Auto) 0.200 Neut % (Auto) 77.0 H Lymph % (Auto) 12.8 L [place] % (Auto) 8.0 Eos % (Auto) 1.5 Baso % (Auto) 0.5 Absolute Neuts (auto) 6.5 Absolute Lymphs (auto) 1.08 Nucleated RBC % 0 Sodium 139 Potassium 4.2 Chloride 104 Carbon Dioxide 21.8 Anion Gap 13 BUN 15 Creatinine 0.98 Estim Creat Clear Calc 63.78 Est GFR (MDRD) Non-Af 79 BUN/Creatinine Ratio 15.7 Glucose 112 H Calcium 9.6 Total Bilirubin 0.36 AST 29 ALT 20 Alkaline Phosphatase 109 Troponin T High Sens 10 Troponin T Hi Sens 2 Hr 27 H Total Protein 8.0 Albumin 4.4 Globulin 3.6 Albumin/Globulin Ratio 1.2 Radiography Chest X-Ray - ED: Read by ED Physician, Normal, No Acute Disease and No Infiltrates Diagnostic Testing: Clinical Impression(s) from Imaging Studies Brain CT 12/22/24 10:50 IMPRESSION: CHRONIC CHANGES. NO ACUTE FINDINGS. Reading Location: [facility] Chest X-Ray 12/22/24 10:55 IMPRESSION: A left atrial appendage closure device is seen (Watchman). The cardiomediastinal silhouette is within the normal range, without evidence of cardiomegaly. Lungs appear clear. No pleural effusion or pneumothorax is seen. No acute osseous change is evident. No evidence of acute cardiopulmonary disease. Reading Location: [facility] Discharge Plan Triage Chief Complaint: Hypertension ED Provider: Magdalena Sandhu Dx/Rx/DC Orders Prescriptions: No Action metoprolol tartrate 50 mg tablet 25 mg PO BID Qty: 60 11RF trazodone 50 mg tablet 50 mg PO QHS oxybutynin chloride 15 mg tablet extended release 24hr 1 tab PO DAILY melatonin 10 mg Tablet 10 mg PO QHS multivitamin [Daily Multi-Vitamin] Tablet 1 tab PO DAILY magnesium glycinate 100 mg tablet 200 mg PO BID calcium carbonate-vitamin D3 [Calcium 600 + D(3)] 600 mg-5 mcg (200 unit) capsule 1 cap PO BID Primary Care Provider: Iván Aponte Referrals: Iván Aponte MD [Primary Care Provider] - Print Language: Greenlandic
--- NOTE | 2024-12-22 10:50 | CT_ITS ---
PROCEDURE: BRAIN/HEAD WITHOUT CONTRAST 12/22/2024 REASON FOR EXAM: HYPERTENSION SBP ABOVE 220 TECHNIQUE: Procedure Code: CTBR Modality: CT Procedure: BRAIN/HEAD WITHOUT CONTRAST Coronal and Sagittal reconstruction series were provided. One or more dose reduction techniques were used (e.g., Automated exposure control, adjustment of the mA and/or kV according to patient size, use of iterative reconstruction technique. RADIATION DOSE SUMMARY: CTDlvol: 47.06 mGy DLP: 872.68 mGycm COMPARISON: None FINDINGS: Brain: Low density in the periventricular white matter suggests mild chronic small vessel ischemic changes. CSF Spaces: Mild generalized cerebral atrophy Sinuses/Mastoids: Clear at visualized levels Bones: Unremarkable CT/Brain/Head without Contrast IMPRESSION: CHRONIC CHANGES. NO ACUTE FINDINGS. Reading Location: [id number]
--- NOTE | 2024-12-22 10:55 | RAD_ITS ---
PROCEDURE: CHEST 1 VIEW (PORTABLE) 12/22/2024 REASON FOR EXAM: CHEST PAIN TECHNIQUE: Frontal view of the chest. COMPARISON: None. RAD/Chest 1 View (Portable) IMPRESSION: A left atrial appendage closure device is seen (Watchman). The cardiomediastinal silhouette is within the normal range, without evidence o f cardiomegaly. Lungs appear clear. No pleural effusion or pneumothorax is seen. No acute osseous change is evident. No evidence of acute cardiopulmonary disease. Reading Location: [place] [id number]
[2024-12-22 11:01] LABS: Hematocrit 35.5 % (40-54); Hemoglobin 10.8 g/dL (13.0-16.5); Immature Granulocytes Count 0.020 X10^3/uL (0.0-0.0); Mean Corp Hgb Conc 30.4 g/dL (32-36); Mean Corpuscular Volume 81.4 fL (80-94); Mean Platelet Vol. 10.8 fl (6.2-12.0); NRBC Flagged by Analyzer 0 % (0-5); Platelet Count 341 K/mm3 (150-450); RBC Distribution Width CV 17.2 % (11.6-14.6); RBC Distribution Width SD 50.4 fl (35.1-43.9); Red Blood Count 4.36 M/mm3 (4.6-6.2); White Blood Count 8.5 K/mm3 (4.4-11.0)
[2024-12-22 11:21] LABS: AST(SGOT) 29 U/L (<=37); Alanine Aminotransfer ALT/SGPT 20 U/L (<=46); Albumin, Serum 4.4 g/dL (3.4-4.8); Alkaline Phosphatase 109 U/L (40-129); Anion Gap 13 (5-15); BUN 15 mg/dL (4-19); BUN/Creat Ratio 15.7 RATIO (10-20); Calcium,Total 9.6 mg/dL (7.6-11.0); Carbon Dioxide 21.8 mmol/L (21.0-32.0); Chloride 104 mmol/L (98-108); Estimated Creatinine Clearance 63.78 ml/min (50-250); Globulin 3.6 g/dL (2.2-4.2); Glucose 112 mg/dL (70-99); Potassium 4.2 mmol/L (3.3-5.1); Troponin T High Sensitivity 10 ng/L (<=22)
[2024-12-22 12:14] VITALS: BP 121/54; PULSE 70; RESP 20; O2SAT 98
[2024-12-22 13:17] LABS: Troponin T High Sens 2 HR 27 ng/L (<=22)
[2024-12-22 14:00] VITALS: BP 139/66; PULSE 70; RESP 18; O2SAT 99
[2024-12-22 15:05] LABS: Mucous, Urine 0 SEEN /hpf (<or=2+); Squamous Epithelial Cells - UA 0 SEEN /hpf (0-5)
[2024-12-22 15:44] LABS: Color, Urine Red (Yellow); Glucose, Dipstick Normal (Normal); Ketone-Dipstick Negative (Negative); Leukocyte Esterase-Dipstick Negative /ul (Negative); Nitrite-Dipstick Negative (Negative); Occult Blood-Urine 150 /ul (Negative); Protein-Dipstick 500 mg/dl (Negative); Specific Gravity, Urine 1.015 (1.002-1.030); Urine Bilirubin Dipstick Negative (Negative)
[2024-12-22 15:49] VITALS: BP 151/67; PULSE 71; RESP 18; TEMP 36.8; O2SAT 100
[2024-12-22 16:00] VITALS: BP 151/74; PULSE 73; RESP 18; O2SAT 100
--- NOTE | 2024-12-22 16:04 | CM.ED ---
Care Management Face to Face with patient for initial transition planning/care coordination assessment in the ED.? This life underwriter introduced self and role at [facility]. Patient alert and oriented. Patient willing to participate in assessment and is able to answer all questions appropriately.? Care providers, pharmacy, and demographics verified. Admitting Diagnosis: ?HTN Other diagnosis history: ?cardiac ablation for afib, cancer, gross hematuria PCP: ?Fay Specialists: ?Bassem, Urology; BRENDON Barboza Cardiology; Jania, oncology Preferred Pharmacy: [facility] Insurance: ?Medicare Prescription Benefit: yes Living Will/HPOA: ?completed, ex is listed as HPOA LNOK: Granddaughter Living Arrangements: Lives in one story home with basement, 3 steps to enter home, 12 steps in basement. Independent with ADLs and IADLs, able to navigate stairs. Transportation: patient drives DME: ?none HHC: none SNF/Rehab: ?none Community Resources: none Behavioral Health History: none Patient goals: Patient wishes to discharge home, denies need for home health care at this time. Patient denies any further needs or concerns at this time. Disposition Plan: admission to acute; RN CM/SW to follow for discharge planning needs that may arise. Juanita Diaz, NOTEREADER, DIRECTOR TRANSLATIONAL
[2024-12-22 16:19] LABS: Troponin T High Sens 4 HR 30 ng/L (<=22)
[2024-12-22 16:22] LABS: Red Blood Cells-Urine > 100 SEEN /hpf (0-5)
--- NOTE | 2024-12-22 17:14 | PCM.HOSP.N ---
Hospitalist Note Patient presented today with asymptomatic hypertension from his oncology office. In the ED here his blood pressure was up to 220 systolic. He is on home metoprolol and had not taken his dose of that this morning. He had no chest pain, shortness of breath, headache noted. Chest x-ray unremarkable and CT brain was unremarkable as well. BMP with normal creatinine noted. He was a dose of IV labetalol 20 mg x 1 and blood pressure significantly improved to the 130s systolic. Troponin trend 10 > 27 > 30. However, EKG showed normal sinus rhythm with no ischemic changes and patient denies any chest pain. His primary concern is his ongoing hematuria with intermittent clots. He had another episode of passing significant clots in the ED that led to urinary retention, so Walker catheter was placed. Notably his hemoglobin is stable at his baseline around 9-10. ED physician discussed case with Dr. Luevano who noted patient did not need to be admitted and he will have patient follow-up in the office within the next week. Patient does not check his blood pressure regularly at home. However, he states he has never been on any other blood pressure medications aside from this metoprolol and has never been told he has any issues with hypertension. I suspect that his hypertensive episode today was likely secondary to pain that he experienced when trying to pass these clots. The mild troponin bump seems most consistent with demand ischemia secondary to his hypertensive episode, with baseline anemia contributing to this. I have very low suspicion for true cardiac etiology for the troponin elevation. For this reason, I believe it is reasonable for the patient to be discharged home from the ED. It will be very important for him to follow-up with Dr. Luevano in the next several days for further management of his ongoing hematuria with clots as well as his new Walker placement.
== END 2024-12-22 18:05 | disposition home or self-care (01) ==
PROVIDERS: Emergency Provider Student in an Organized Health Care Education/Training Program; PCP Family Medicine; Visit Provider Student in an Organized Health Care Education/Training Program
DX: I16.1 Hypertensive emergency (principal); Z87.891 Personal history of nicotine dependence; R33.9 Retention of urine, unspecified; I10 Essential (primary) hypertension; R31.0 Gross hematuria; I45.10 Unspecified right bundle-branch block; Z85.46 Personal history of malignant neoplasm of prostate; R79.89 Other specified abnormal findings of blood chemistry
CPT/HCPCS: 51702; 70450; 71045; 80053; 81001; 84484; 85025; 93005; 96374; 99285; A4216

== ENCOUNTER → 2025-01-05 | Outpatient (CLI) | payer MEDICARE, OTHER, SELFPAY ==
[2025-01-05 10:12] LABS: Hematocrit 31.2 % (40-54); Hemoglobin 9.7 g/dL (13.0-16.5); Mean Corp Hgb Conc 31.1 g/dL (32-36); Mean Corpuscular Volume 82.1 fL (80-94); Mean Platelet Vol. 10.8 fl (6.2-12.0); Platelet Count 291 K/mm3 (150-450); RBC Distribution Width CV 17.5 % (11.6-14.6); RBC Distribution Width SD 52.3 fl (35.1-43.9); Red Blood Count 3.80 M/mm3 (4.6-6.2); White Blood Count 4.4 K/mm3 (4.4-11.0)
[2025-01-05 10:45] LABS: Anion Gap 9 (5-15); BUN 14 mg/dL (4-19); BUN/Creat Ratio 16.7 RATIO (10-20); Calcium,Total 8.9 mg/dL (7.6-11.0); Carbon Dioxide 24.6 mmol/L (21.0-32.0); Chloride 106 mmol/L (98-108); Glucose 122 mg/dL (70-99); Potassium 4.1 mmol/L (3.3-5.1)
== END | disposition home or self-care (01) ==
LOC: LAB 08:54
PROVIDERS: PCP Family Medicine; Referring Provider Urology; Visit Provider Urology
DX: C61 Malignant neoplasm of prostate (principal)
CPT/HCPCS: 36415; 80048; 85027

== ENCOUNTER 2025-01-11 10:52 | Day surgery (SDC) | payer MEDICARE, OTHER, SELFPAY ==
[2025-01-11] VITALS (11 sets, daily range): BP systolic 132–188; BP diastolic 57–86; PULSE 62–97; RESP 13–18; TEMP 36.3–37.7; O2SAT 93–100; BMI 29.9
--- NOTE | 2025-01-11 08:13 | PAT.ANE_ITS ---
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 When Was Last Pacemaker Check QUESTION #4 FULL TEXT: You/Your Family Experience fever (hyperthermia) with Anesthesia Last Oral Intake Last Oral intake: Last Oral Intake NPO since Meds taken in AM with sips of water? Meds patient instructed to take am of surgery PONV PONV - acetylene torch operator: PONV - acetylene torch operator Female No 01/06/25 12:58 HX of Motion Sickness No 01/06/25 12:58 HX of N/V After Surgery No 01/06/25 12:58 Non-Smoker Yes 01/06/25 12:58 Duration of Surgery greater Yes 01/06/25 12:58 than 60 minutes Number of Risk Factors 2 01/06/25 12:58 PONV Score Moderate Risk 01/06/25 12:58 Height & Weight Height & Weight: Anesthesia: Height & Weight Height 5 ft 6 in 12/22/24 10:14 Respiratory Assessment Respiratory Assessment - acetylene torch operator: Respiratory Tract Infection Hx - acetylene torch operator Hx Respiratory Tract Infection No 01/06/25 12:58 STOP Sleep Apnea STOP Sleep Apnea - acetylene torch operator: STOP Sleep Apnea - acetylene torch operator Hx Hypertension No 01/06/25 12:58 Hx Sleep Apnea No 01/06/25 12:58 CPAP BIPAP Do you snore loudly (louder No 01/06/25 12:58 than talking or can be heard Do you often feel tired/ Yes 01/06/25 12:58 fatigued/ sleepy during daytime? Has anyone observed you stop No 01/06/25 12:58 breathing during sleep? STOP Results Negative 01/06/25 12:58 QUESTION #5 FULL TEXT : Do you snore loudly (louder than talking or can be heard through closed doors)? 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 Specify any problems Hx of Preganancy in last 3 N/A 01/06/25 12:58 Months Nurse Filling Out Transfusion DSCHRIBER 01/06/25 12:58 & Questions: Date: 01/06/25 01/06/25 12:58 Time: 13:00 01/06/25 12:58 Patient unable to answer at this time (ie. 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: /Reproductive Hx- acetylene torch operator Hx Now Gestational Age (in weeks): EDC: Hx Hx Para Hx Section SAB No 01/06/25 12:58 Active Medications Active Medications: Current Medications Generic Name Dose Route Start Last Admin Trade Name Freq PRN Reason Stop Dose Admin Cefazolin Sodium 2 gm/ Sodium 110 mls @ 200 mls/hr 01/11/25 13:05 Chloride IV 01/11/25 13:37 INTRAOP ONE [facility] Medical History Anemia requiring transfusions Anticoagulant adverse reaction Anticoagulant long-term use Signs and symptoms of anemia Symptomatic anemia Gross hematuria Cancer Depression Arthritis History of stress test Dizziness Wears glasses Wears dentures Stuttering Prostate disease Leg cramps History of edema Cardiology follow-up encounter History of echocardiogram History of atrial fibrillation BPH with obstruction/lower urinary tract symptoms UTI (urinary tract infection) Bacteremia due to Gram-negative bacteria Tinnitus of left ear Hepatitis Former smoker Atrial fibrillation Home Medications ?Medication ?Instructions ?Recorded ?Last Taken ?Type trazodone 50 mg tablet 50 mg PO QHS sleep 06/18/21 11/02/24 History melatonin 10 mg tablet 10 mg PO QHS sleep 10/23/21 11/02/24 History oxybutynin chloride 15 mg 1 tab PO DAILY bladder 10/2311/03/24 History tablet,extended release 24 hr calcium 600 mg (as 1 cap PO BID supplement 09/1211/03/24 History carbonate)-vitamin D3 5 mcg (200 unit) capsule (Calcium 600 + D(3)) magnesium glycinate 100 mg (as 120 mg PO BID supplemen t 10/07/24 11/03/24 History glycinate) tablet multivitamin (Daily Multi-Vitamin 1 tab PO DAILY vitam in 10/07/24 11/03/24 History tablet) ferrous sulfate 325 mg (65 mg 325 mg PO QODAY 12/22/24 Unknown History iron) tablet metoprolol tartrate 25 mg tablet 25 mg PO BID 12/22/24 Unknown History Allergy/AdvReac Type Severity Reaction Status Date / Time adhesive tape (plastic tape) AdvReac Intermediate Rash Verified 01/06/25 12:54 latex AdvReac Intermediate Rash Verified 01/06/25 12:54 Family History Other Cancer Surgical History Hx of cystoscopy History of cardiac ablation for atrial fibrillation History of transurethral resection of prostate (06/05/21) Hx of prostate biopsy History of surgical amputation of finger Hx of vasectomy Hx of colonoscopy with polypectomy Social History Smoking Status: Former smoker how long ago did patient quit smokin alcohol intake: never substance use type: does not use caffeine: Yes Type: carbonated beverages Addt'l Information Additional Findings: SR; RBBB; >4 METS Recommendation Anesthesia Recommendation Anesthesia recommendation: OPTIMIZED for anesthesia
[2025-01-11] MEDS: Lactated Ringers 500 ML IV (12:03)
--- NOTE | 2025-01-11 12:29 | PRE.ANES_ITS ---
ASA Classification* ASA Classification ASA Classification: 3 Assessment & Plan Anesthesia* Anesthesia Assessment Anesthesia Assessment: Discussed sedation and/or anesthesia options, risks, benefits, and alternatives with patient/parents/legal guardian/POA. Questions invited. The patient/parents/legal guardian/POA seems to understand and agrees to proceed with anesthesia plan. Reviewed the physical assessment, medical history, allergy history and patient home medications list prior to surgery/procedure/anesthetic and documented any changes. Performed airway and anesthesia risk assessments. Anesthesia Type Anesthesia Type: General History Source History Obtained from:: Patient and Chart Anesthesia Focused Assessment* Temperature: 97.5 F Pulse Rate: 63 Respiratory Rate: 18 Pulse Ox: 99 Oxygen Delivery Method: Room Air Airway Assessment Mouth opens: >3 cm Mallampati Score: II Neck Range of motion (ROM): Full ROM Labs Anesthesia Preop lab: CBC WBC, (4.4-11.0) 4.4 K/mm3 01/05/25, 09:07 RBC, (4.6-6.2) 3.80 M/mm3 L 01/05/25, 09:07 Hgb, (13.0-16.5) 9.7 g/dL L 01/05/25, 09:07 Hct, (40-54) 31.2 % L 01/05/25, 09:07 Plt Count, (150-450) 291 K/mm3 01/05/25, 09:07 CHEMISTRY Potassium, (3.3-5.1) 4.1 mmol/L 01/05/25, 09:07 Sodium, (133-145) 139 mmol/L 01/05/25, 09:07 Magnesium, (1.6-2.6) 2.2 mg/dL 10/23/21, 09:59 BUN, (4-19) 14 mg/dL 01/05/25, 09:07 Creatinine, (0.70-1.20) 0.86 mg/dL 01/05/25, 09:07 Glucose, (70-99) 122 mg/dL H 01/05/25, 09:07 COAG PT, (11.7-14.9) 16.6 SECONDS H 11/04/24, 11:42 Pre-Assessment Diagnosis/Proposed Procedure Planned Operative Procedure(s): TURBT Anesthesia History 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 When Was Last Pacemaker Check QUESTION #4 FULL TEXT: You/Your Family Experience fever (hyperthermia) with Anesthesia Last Oral Intake Last Oral intake: Last Oral Intake NPO since 21:00 01/11/25 11:45 Meds taken in AM with sips of Yes 01/11/25 11:45 water? Meds patient instructed to 0500 01/11/25 11:45 take am of surgery metoprolol PONV PONV - food and beverage assistant: PONV - food and beverage assistant Female No 01/06/25 12:58 HX of Motion Sickness No 01/06/25 12:58 HX of N/V After Surgery No 01/06/25 12:58 Non-Smoker Yes 01/06/25 12:58 Duration of Surgery greater Yes 01/06/25 12:58 than 60 minutes Number of Risk Factors 2 01/06/25 12:58 PONV Score Moderate Risk 01/06/25 12:58 Height & Weight Height & Weight: Anesthesia: Height & Weight Height 5 ft 6 in 01/11/25 11:45 Weight: 84 kg 01/11/25 11:45 Body Mass Index (BMI) 29.9 01/11/25 11:45 Respiratory Assessment Respiratory Assessment - food and beverage assistant: Respiratory Tract Infection Hx - food and beverage assistant Hx Respiratory Tract Infection No 01/06/25 12:58 STOP Sleep Apnea STOP Sleep Apnea - food and beverage assistant: STOP Sleep Apnea - food and beverage assistant Hx Hypertension No 01/06/25 12:58 Hx Sleep Apnea No 01/06/25 12:58 CPAP BIPAP Do you snore loudly (louder No 01/06/25 12:58 than talking or can be heard Do you often feel tired/ Yes 01/06/25 12:58 fatigued/ sleepy during daytime? Has anyone observed you stop No 01/06/25 12:58 breathing during sleep? STOP Results Negative 01/06/25 12:58 QUESTION #5 FULL TEXT : Do you snore loudly (louder than talking or can be heard through closed doors)? 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 Specify any problems Hx of Preganancy in last 3 N/A 01/06/25 12:58 Months Nurse Filling Out Transfusion DSCHRIBER 01/06/25 12:58 & Questions: Date: 01/06/25 01/06/25 12:58 Time: 13:00 01/06/25 12:58 Patient unable to answer at this time (ie. 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: /Reproductive Hx- food and beverage assistant Hx Now Gestational Age (in weeks): EDC: Hx Hx Para Hx Section SAB No 01/06/25 12:58 Active Medications Active Medications: Current Medications Generic Name Dose Route Start Last Admin Trade Name Freq PRN Reason Stop Dose Admin Botulinum Toxin Type A 100 units 01/11/25 12:30 Botulinum Toxin A 100 Units Vial IJ 01/11/25 12:31 X1 ONE Cefazolin Sodium 2 gm/ Sodium 110 mls @ 200 mls/hr 01/11/25 13:05 Chloride IV 01/11/25 13:37 INTRAOP ONE Lactated Ringer's 1,000 mls @ 15 mls/hr 01/11/25 11:15 IV .Q48H SHAWN PFSH Medical History Anemia requiring transfusions Anticoagulant adverse reaction Anticoagulant long-term use Signs and symptoms of anemia Symptomatic anemia Gross hematuria Cancer Depression Arthritis History of stress test Dizziness Wears glasses Wears dentures Stuttering Prostate disease Leg cramps History of edema Cardiology follow-up encounter History of echocardiogram History of atrial fibrillation BPH with obstruction/lower urinary tract symptoms UTI (urinary tract infection) Bacteremia due to Gram-negative bacteria Tinnitus of left ear Hepatitis Former smoker Atrial fibrillation Home Medications ?Medication ?Instructions ?Recorded ?Last Taken ?Type trazodone 50 mg tablet 50 mg PO QHS sleep 06/18/21 11/02/24 History melatonin 10 mg tablet 10 mg PO QHS sleep 10/23/21 11/02/24 History oxybutynin chloride 15 mg 1 tab PO DAILY bladder 10/2311/03/24 History tablet,extended release 24 hr calcium 600 mg (as 1 cap PO BID supplement 09/1211/03/24 History carbonate)-vitamin D3 5 mcg (200 unit) capsule (Calcium 600 + D(3)) magnesium glycinate 100 mg (as 120 mg PO BID supplemen t 10/07/24 11/03/24 History glycinate) tablet multivitamin (Daily Multi-Vitamin 1 tab PO DAILY vitam in 10/07/24 11/03/24 History tablet) ferrous sulfate 325 mg (65 mg 325 mg PO QODAY 12/22/24 Unknown History iron) tablet metoprolol tartrate 25 mg tablet 25 mg PO BID 12/22/24 01/11/25 05:00 History Allergy/AdvReac Type Severity Reaction Status Date / Time adhesive tape (plastic tape) AdvReac Intermediate Rash Verified 01/06/25 12:54 latex AdvReac Intermediate Rash Verified 01/06/25 12:54 Family History Other Cancer Surgical History Hx of cystoscopy History of cardiac ablation for atrial fibrillation History of transurethral resection of prostate (06/05/21) Hx of prostate biopsy History of surgical amputation of finger Hx of vasectomy Hx of colonoscopy with polypectomy Social History Smoking Status: Former smoker how long ago did patient quit smokin alcohol intake: never substance use type: does not use caffeine: Yes Type: carbonated beverages Prior Cardiac Testing/Procedures Prior Cardiac Testing/Procedures: Echocardiogram (Echocardiogram on 05/18/2021 showed ejection fraction of 55% and normal left and right atrium size.) Addt'l Information Additional Findings: RBBB; Sinus; > 4 METS Review of Systems (Anesthesia) ROS Narrative System reviewed and no additional complaints, except as documented. Physical Exam Const alert, oriented x3 and average body habitus Neck full ROM Resp normal respiratory effort and normal air movement Auscultation: clear to auscultation bilaterally Cardio regular rate and regular rhythm Neuro oriented x3 and moves all extremities
[2025-01-11] MEDS: Cefazolin 1 GM/5 ML Vial 2 GM IV (12:49)
[2025-01-11] MEDS: Midazolam 2 MG/2 ML Syringe IV (12:51)
[2025-01-11] MEDS: fentaNYL 100 MCG/2 ML Ampul IV (12:51)
[2025-01-11] MEDS: Lidocaine 1% (5 ml sdv) 5 ML Vial IV (12:53)
--- NOTE | 2025-01-11 13:05 | BLA_PTH ---
PATIENT: YO IVY LOC: [facility] U#:[id number] AGE/SX: 79/M ROOM: RE01/11/[address]: Dr. Martinez Luevano MD : 1945 BED: DIS: 01/11/2025 SPEC #: [id number] RECD: 01/11/25 14:14 STATUS: MATTIE REQ #: [id number] IESHA: 01/11/25 13:[address]: Martinez Luevano DEPT: SURGICAL PATHOLOGY RECD BY: Vishal Kahn ENTERED: 01/11/25 14:42 SP TYPE: BLADDER BX OTHR DR: Dr. Iván Aponte MD Tissues: A - Urinary bladder, NOS Procedures: Immunohistochemical Stains Surgery Specimen Level IV IHC Stain ADDITIONAL HEADER OPERATION: Cysto, Botox injection, cauterization of bleeding in bladder PRE-OP DIAGNOSIS: Malignant neoplasm of prostate, benign prostatic hyperplasia with lower urinary symptoms, gross hematuria TISSUE SUBMITTED: A- Bladder biopsy MICROSCOPIC DIAGNOSIS A. Bladder, biopsy: * Ulceration and inflammation with scattered atypical cells - see note. Note: IHC was performed to assess the atypical cells. Pankeratin, CK7, CK20, and GATA3 are negative. CD68 stains many histiocytes but does not appear to stain the atypical cells. The atypical cells may represent reactive fibroblasts. Additional IHC (NKX3.1) is PENDING at [facility] and the result will be reported in an addendum. MICROSCOPIC DESCRIPTION Slides are reviewed. All matched controls reacted appropriately. These tests were developed and their performance characteristics determined by [facility]. They may not have been cleared or approved by the U.S. Food and Drug Administration. The FDA has determined that such clearance or approval is not necessary. The above immunohistochemical markers and/or special stains have been reviewed by the Pathologist. GROSS DESCRIPTION A. Received in formalin labeled with the patient's name and date of . Designated as bladder BX is a 0.9 x 0.5 x 0.3 cm lewis-white, cauterized tissue fragment. Entirely submitted in 1 cassette. IA 01/11/2025 [facility]:[id number] ADDENDUM ADDENDUM ADDENDUM ADDENDUM ADDENDUM ADDENDUM ADDENDUM ADDENDUM ADDENDUM ADDENDUM ADDENDUM ADDENDUM ADDENDUM ADDENDUM ADDENDUM ADDENDUM 01/23/2025 12:23 ADDENDUM 01/23/2025 12:23 ADDENDUM 01/23/2025 12:23 ADDENDUM 01/23/2025 12:23 ADDENDUM 01/23/2025 12:23 This addendum is to report the result of the IHC for NKX3.1 performed at [facility]: IHC for NKX3.1 is negative. The diagnosis remains unchanged. All controls show appropriate reactivity. (NKX3.1) ?All immunohistochemistry, in situ hybridization, and histochemical tests were developed by and are performed at the [facility], [address] [place] [address], [place] [address]. All Immunofluorescent (IF)?tests were developed by and are performed at the [facility], [facility]. [address] [place] [address], [place], [place] ?[address]. All tests reported here, except those addressing HER2 overexpression as a predictive marker, have not been cleared by or approved by the US Food and Drug Administration (FDA). The laboratory is regulated under CLIA as qualified to perform high-complexity testing. The tests are used for clinical purposes. They should not be regarded as investigational or for research.
[2025-01-11] MEDS: 0.9% Normal Saline (Pres. free 10 ML Vial (13:15)
--- NOTE | 2025-01-11 13:22 | DCINST_ITS ---
Discharge Instructions DC O2, CPAP, BIPAP needs Home O2 Discharge instructions: No Dressing / Incision Discharge Activity: Return to Normal Activity Dressing / Incision Call your doctor if you observe: Fever of 101 or Higher Follow Up Care Please Follow Up With: Martinez Luevano MD When: Call [phone] for an appointment Test Results: Test results from this visit will be discussed in further detail at your follow- up appointment, if applicable. Discharge Plan Admission Primary Reason for Your Visit: cystoscopy botox injection 100 U Attending Provider: Martinez Luevano Primary Care Provider: Iván Aponte Instructions Print Language: Algerian Discharge Orders/Prescriptions Prescriptions: Continued trazodone 50 mg tablet 50 mg PO QHS oxybutynin chloride 15 mg tablet extended release 24hr 1 tab PO DAILY melatonin 10 mg Tablet 10 mg PO QHS ferrous sulfate 325 mg (65 mg iron) tablet 325 mg PO QODAY metoprolol tartrate 25 mg tablet 25 mg PO BID multivitamin [Daily Multi-Vitamin] Tablet 1 tab PO DAILY magnesium glycinate 100 mg tablet 120 mg PO BID Patient Comments: nature [employer] brand calcium carbonate-vitamin D3 [Calcium 600 + D(3)] 600 mg-5 mcg (200 unit) capsule 1 cap PO BID Referrals / Follow Up: Martinez Luevano MD [Med Staff - Active Staff, Urology] Iván Apotne MD [Primary Care Provider, Family Practice] Disposition Disposition (needs filled in before D/C Order can be placed): Home, Self Care
--- NOTE | 2025-01-11 13:22 | OP.PCM_ITS ---
Operative Report (Standard) Operative Information Date of Procedure: 01/11/25 Pre-Operative Diagnosis: History of bladder cancer status post radiation, overactive bladder urethral stricture bleeding from the bladder neck Post-Operative Diagnosis: The same Surgery/Procedure Performed: Cystoscopy, injection of Botox 100 units in the bladder, dilation of urethral stricture membranous urethra, cauterization of bleeding from the bladder neck cystoscopy bladder biopsy, xerox machine mechanic: No Type of Anesthesia: General RN Documented Start/Stop Times: Operation Date: 01/11/25 13:05 Case Time Into Pre-Op 01/11/25 11:01 Anesthesia Start 01/11/25 12:45 Into Room 01/11/25 12:45 Procedure Start 01/11/25 13:00 Procedure Start Time: 13:00 Procedure Stop Time: 13:23 Select all DRAINS/GRAFTS/IMPLANTS that apply: None Estimated Blood Loss: Minimal Specimen collected: Yes Description of specimen(s) removed: Bladder biopsy Description of surgery: Indication this is a 79-year-old male who unfortunately developed retention of urine and had to have a transurethral section of the prostate was then found to have high-grade prostate cancer after resection because all the tissue came back with [place] 10 prostate cancer so we elected to treat his prostate cancer with radiation therapy he unfortunately has now developed recurrent bleeding from the bladder neck he ended up getting several units of blood transfusion several months ago and is also developed a 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 tried to explain to the patient that the stricture is result of the radiation and 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 and this is a very difficult situation to manage with good outcomes he is already having significant bladder control problems so today were going to do a cystoscopy to evaluate the urethral channel very likely has recurrence of his stricture about the open this up and also inject the bladder with Botox to help with bladder control problems Patient was taken back to the operating duction of anesthesia he was placed in dorsolithotomy position, the penis and testicles were prepped and draped in usual fashion, went into the urethra with a 21 [place]ian rigid cystourethroscope entire length urethra was normal the bulbar urethra is normal but ran the membranous urethra before he get into the prostate with severe stricture was able to get to the beak of the cystoscope through this and open into the prostate then he had an open prostate and then inside the bladder did a biopsy cauterized the site we then injected Botox into the bladder 100 units and about 15 different sites there were there is also some active bleeding coming from the bladder neck this was cauterized around the bladder neck and then I pulled back into the urethra there was a loose polyp that was in the urethra a biopsy of this was taken this and then I cauterized that and then after this he had a nice open channel no active bleeding and removed the cystoscope and drained the bladder unfortunately has a very guarded prognosis with this he is a high chance that the stricture in the urethra may come back the Botox will wear off about the 6 months we can always repeat this in the office and a stricture in the prostate also could come back prior be a core poor candidate for reconstructive surgery given the prior history of radiation to the area and poor blood supply to the prostate area. Patient did not want to go over the catheter so I sent him home today without a catheter assuming the office in a few weeks for checkup. Bleeding from the bladder neck bladder biopsy done and fulguration of site cauterization of bleeding from the bladder neck Surgical Findings: Severe stricture in the membranous urethra was dilated open, Complications Complications: No Admit VTE Documentation VTE Present on Admission: No VTE Mechan Device Prophylaxis: SCD's VTE Pharm Prophylaxis ordered?: No
--- NOTE | 2025-01-11 13:32 | PCM.POST.ANE ---
Anesthesia: Postop Eval I Current Vital Signs Temperature: 97.3 F Pulse Rate: 65 Blood Pressure: 132/63 Respiratory Rate: 13 Pulse Ox: 100 Oxygen Delivery Method: Room Air Assessment Airway patent: Yes Spontaneous unlabored respirations: Yes Mental status: Awake and Calm nausea: No Vomiting: No Anesthesia Complication: No Fluid Hydration Crystalloid volume administer (ml): 300 Total IV fluid infused: 300 Progress Note Anesthesia document: Postop Eval 1 completed: Yes
--- NOTE | 2025-01-11 15:07 | POSTOPAN2_ITS ---
Anesthesia Postop Eval I Sum Postop Eval Completion status Anesthesia document: Postop Eval 1 completed: Yes Anesthesia Postop Eval I Summary Anesthesia Postop Eval I Summary: Anesthesia Postop Eval I: Assessment Summary Airway patent Yes 01/11/25 13:33 [email or web address] Spontaneous unlabored Yes 01/11/25 13:33 STATE [email or web address] respirations Mental status Awake,Calm 01/11/25 13:33 STATE [email or web address] nausea No 01/11/25 13:33 STATE [email or web address] Vomiting No 01/11/25 13:33 STATE [email or web address] Anesthesia Postop Eval I: Fluid Summary Crystalloid volume administer 300 01/11/25 13:33 [email or web address] (ml) Colloids volume administered ( ml) Blood Product volume administered (ml) Total IV fluid infused 300 01/11/25 13:33 STATE [email or web address] Anesthesia Postop Eval I: Summary Notes Anesthesia Complication No 01/11/25 13:33 STATE [email or web address] Anesthesia Complication Comment: Post-operative progress note Anesthesia: Postop Eval II Evaluation Mental status: Awake and Calm Pain Level: 1 nausea: No Vomiting: No Complications Anesthesia Complication: No
--- NOTE | 2025-01-11 15:07 | PCM.POSTANE2 ---
Anesthesia Postop Eval I Sum Postop Eval Completion status Anesthesia document: Postop Eval 1 completed: Yes Anesthesia Postop Eval I Summary Anesthesia Postop Eval I Summary: Anesthesia Postop Eval I: Assessment Summary Airway patent Yes 01/11/25 13:33 [email or web address] [email or web address] Spontaneous unlabored Yes 01/11/25 13:33 [email or web address] [email or web address] respirations Mental status Awake,Calm 01/11/25 13:33 [email or web address] [email or web address] nausea No 01/11/25 13:33 SAND [email or web address] Vomiting No 01/11/25 13:33 [email or web address] [email or web address] Anesthesia Postop Eval I: Fluid Summary Crystalloid volume administer 300 01/11/25 13:33 [email or web address] (ml) Colloids volume administered ( ml) Blood Product volume administered (ml) Total IV fluid infused 300 01/11/25 13:33 [email or web address] [email or web address] Anesthesia Postop Eval I: Summary Notes Anesthesia Complication No 01/11/25 13:33 SAND [email or web address] Anesthesia Complication Comment: Post-operative progress note Anesthesia: Postop Eval II Evaluation Mental status: Awake and Calm Pain Level: 1 nausea: No Vomiting: No Complications Anesthesia Complication: No
--- NOTE | 2025-01-11 16:58 | SUR.PHASEII ---
paged Dr Luevano to discuss that this nurse feels patient is just off, He has been incontinent of bowel and bladder, freq falls asleep when nurse is trying to talk to him. This nurse did not see patient pre-op so having a difficult time telling if this is the patients baseline. Dr Luevano repeats send him home several times. states the incontinence is patients baseline. Told Dr Luevano that I was concerned with how shaky pt is, pt really hasnt eaten his snack and keeps drifting off . Dr Luevano states Thats an anesthesia problem, have anesthesia see him. Dr Parham then went into room to see patient. reports back to RN at desk that he believes pt is fine and can go home.
--- NOTE | 2025-01-17 09:30 | PCM.HP.STD ---
HPI - General General Date of Service: 01/11/25 HPI Narrative YO IVY, is a 79 M who presents for TURBT at [facility]. [facility] Medical History Anemia requiring transfusions Anticoagulant adverse reaction Anticoagulant long-term use Signs and symptoms of anemia Symptomatic anemia Gross hematuria Cancer Depression Arthritis History of stress test Dizziness Wears glasses Wears dentures Stuttering Prostate disease Leg cramps History of edema Cardiology follow-up encounter History of echocardiogram History of atrial fibrillation BPH with obstruction/lower urinary tract symptoms UTI (urinary tract infection) Bacteremia due to Gram-negative bacteria Tinnitus of left ear Hepatitis Former smoker Atrial fibrillation Home Medications ?Medication ?Instructions ?Recorded ?Last Taken ?Type trazodone 50 mg tablet 50 mg PO QHS sleep 06/18/21 11/02/24 History melatonin 10 mg tablet 10 mg PO QHS sleep 10/23/21 11/02/24 History oxybutynin chloride 15 mg 1 tab PO DAILY bladder 10/23/21 11/03/24 History tablet,extended release 24 hr calcium 600 mg (as 1 cap PO BID supplement 10/07/24 11/03/24 History carbonate)-vitamin D3 5 mcg (200 unit) capsule (Calcium 600 + D(3)) magnesium glycinate 100 mg (as 120 mg PO BID supplement 10/07/24 11/03/24 History glycinate) tablet multivitamin (Daily Multi-Vitamin 1 tab PO DAILY vitamin 10/07/24 11/03/24 History tablet) ferrous sulfate 325 mg (65 mg 325 mg PO QODAY 12/22/24 Unknown History iron) tablet metoprolol tartrate 25 mg tablet 25 mg PO BID 12/22/24 01/11/25 05:00 History Allergy/AdvReac Type Severity Reaction Status Date / Time adhesive tape (plastic tape) AdvReac Intermediate Rash Verified 01/06/25 12:54 latex AdvReac Intermediate Rash Verified 01/06/25 12:54 Family History Other Cancer Surgical History Hx of cystoscopy History of cardiac ablation for atrial fibrillation History of transurethral resection of prostate (06/05/21) Hx of prostate biopsy History of surgical amputation of finger Hx of vasectomy Hx of colonoscopy with polypectomy Social History Smoking Status: Former smoker how long ago did patient quit smokin alcohol intake: never substance use type: does not use caffeine: Yes Type: carbonated beverages Vital Signs Vital Signs Vital Signs: Weight Weight: 84 kg Body Mass Index (BMI) 29.9
== END 2025-01-11 18:41 | disposition home or self-care (01) ==
LOC: SDC 10:54 → AC 10:54
PROVIDERS: PCP Family Medicine; Referring Provider Urology; Visit Provider Urology
PROC: 0TBB8ZZ Excision of Bladder, Via Natural or Artificial Opening Endoscopic (ICD-10-PCS; CPT 52287; principal; 2025-01-11 12:55)
DX: N35.913 Unspecified membranous urethral stricture, male (principal); C61 Malignant neoplasm of prostate; Z87.891 Personal history of nicotine dependence; Z79.899 Other long term (current) drug therapy; N32.89 Other specified disorders of bladder; T45.1X5A Adverse effect of antineoplastic and immunosuppressive drugs, initial encounter; N36.2 Urethral caruncle; N30.90 Cystitis, unspecified without hematuria; N32.81 Overactive bladder
CPT/HCPCS: 52287; 53899; 00910; 88305; 88312; 88341; 88342; A4216; J0585; J2405